=== PATIENT | female | born 1980 | race Caucasian/White ===

== ENCOUNTER 2017-10-15 22:47 | Emergency (ER) | payer MEDICARE, SELFPAY ==
[2017-10-15 22:48] VITALS: BP 208/132; PULSE 125; RESP 34; TEMP 36.9; O2SAT 97; BMI 34.1
[2017-10-15 23:51] LABS: Pregnancy, Serum, hCG Quali. NEGATIVE Negative (0-9 Nonpreg)
[2017-10-15 23:55] LABS: Absolute Lymphocyte Count 2.48 X10^3/ul (0.83-4.51); Absolute Neutrophil Count 5.4 X10^3/uL (2.0-7.7); Basophil# 0.08 X10^3/uL; Basophil% 0.9 % (0-1); Eosinophil# 0.29 X10^3/uL; Eosinophils% 3.3 % (0-5); Hematocrit 37.5 % (37-47); Hemoglobin 12.7 g/dl (12.0-15.0); Lymphocyte # 2.48 X10^3/ul (4.0); Lymphocyte % 27.8 % (19-41); Mean Corp Hgb Conc 33.9 g/gl (32-36); Mean Corpuscular Hgb 27.5 pg (27.0-32.0); Mean Corpuscular Volume 81.2 fL (81-99); Mean Platelet Vol. 11.1 fl (6.2-12.0); Monocyte# 0.57 X10^3/uL; Monocyte% 6.4 % (0-10); Neutrophil # 5.44 X10^3/uL (2.7-7.7); Platelet Count 476 K/mm3 (150-450); RBC Distribution Width CV 12.8 % (11.6-14.6); RBC Distribution Width SD 36.9 fl (35.1-43.9); Red Blood Count 4.62 M/mm3 (4.2-5.4); White Blood Count 8.9 K/mm3 (4.4-11.0)
[2017-10-16] VITALS (16 sets, daily range): BP systolic 143–199; BP diastolic 76–116; PULSE 75–100; RESP 14–20; O2SAT 93–99
[2017-10-16] LABS: POSITIVE COUNT NO; POSITIVE DIFFERENTIAL NO; POSITIVE MORPHOLOGY NO
[2017-10-16 00:01] LABS: Anion Gap 15 (5-15); BUN 8 mg/dL (7-18); BUN/Creat Ratio 10.2 RATIO (10-20); Calcium,Total 9.1 mg/dL (8.5-10.1); Chloride 111 mmol/L (98-107); Creatinine, Serum 0.79 mg/dL (0.55-1.02); EST Glomerular Filtration Rate 87 mL/min (>60); Est Glom Filt Rate - Afr Amer 105 mL/min (>60); Estimated Creatinine Clearance 86.03 ml/min; Glucose 113 mg/dL (74-106); Potassium 3.3 mmol/L (3.5-5.1); Sodium Level 143 mmol/L (136-145)
[2017-10-16 00:57] LABS: Amphetamine Urine VISTA NEGATIVE (<1000 ng/mL); Barbiturate Urine VISTA NEGATIVE (< 200 ng/mL); Benzodiazepine Urine VISTA NEGATIVE (< 200 ng/mL); Cocaine Urine VISTA NEGATIVE (< 300 ng/mL); Ecstacy Urine VISTA NEGATIVE (< 500 ng/mL); Methadone Urine VISTA NEGATIVE (< 300 ng/mL); PCP Urine VISTA NEGATIVE (< 25 ng/mL); THC Urine VISTA NEGATIVE (< 50 ng/mL); Vista UDS pH Range 6
--- NOTE | 2017-10-16 04:17 | ED.DCSUM_ITS ---
- ER Visit Summary Date of Service: 10/16/17 Chief Complaint: [] Comes in with suicidal ideation. Today she got an argument with her family. She had been drinking some alcohol. She also smokes marijuana per patient. As reported she had a knife. She was combative with the police department and had made suicidal threats and was pink slipped. Comes in for further evaluation. Has a history of bipolar schizophrenia and suicidal ideation. History of Present Illness: The patient is a 37 F [] see above Physical Examination: Vital signs reviewed General: Well-nourished well-developed Head: Normocephalic atraumatic Eyes: Pupils equal round and reactive to light extraocular movements intact ENT: TMs clear no hemotympanum no trauma Neck: Nontender full range of motion Cardiovascular: Regular rate rhythm no murmurs normal S1-S2 Respiratory: No distress clear to auscultation bilaterally chest nontender Abdomen: Soft nontender nondistended normal bowel sounds no masses Back: Nontender no CVA tenderness Extremities: Nontender active range of motion ?4 extremities no trauma Skin: Normal color no trauma Neuro alert oriented cranial nerves II through XII intact normal strength sensation reflexes are quite tearful Test Results: [] Emergency Department Course and Treatment: [] Patient calm down eventually in the department. CBC normal. Chemistries normal except potassium 3.3. negative. Tox normal. Alcohol showed a rate of 97. She will be evaluated by crisis. Treatment Plan: [] Disposition: [] Impression: [] Suicidal ideation Alcohol intoxication This note was generated with [employer] dictation software. It may contain incorrect words, spelling, and punctuation that were not noted in review of the chart prior to signing ED Disposition - Plan for ED Patient: Chief Complaint: Suicidal Referrals: Care Physician,No Primary [Primary Care Provider] -
[2017-10-16] MEDS: Acetaminophen 500 MG Tablet 1000 MG PO ×2 (04:52→12:27)
--- NOTE | 2017-10-16 07:26 | ED.RN ---
DR DENSON AWARE BP IS 184/105 AND HAS BEEN GOING UP AND DOWN.SPOKE TO PT AND SHE STATED SHE IS SUPPOSE YO BE ON LISONIPRIL.ORDER RECIEVED.
[2017-10-16] MEDS: Pantoprazole Sodium 20 MG Tablet PO (11:58)
[2017-10-16] MEDS: Lisinopril 20 MG Tablet PO (11:58)
[2017-10-16] MEDS: FLUoxetine 20 MG Capsule PO (11:59)
--- NOTE | 2017-10-16 12:59 | ED.RN ---
CALL BORIS MARCUS [phone] WHEN WE HAVE ANY UPDATES.
--- NOTE | 2017-10-16 16:43 | ED.DEP ---
ED Disposition - Plan for ED Patient: Disposition: Home or Assisted Living Chief Complaint: Suicidal Instructions: ED Alcohol Intoxication Referrals: Counseling,Center [GROUP OF PHYSICIANS] - (as directed)
[2017-10-16] MEDS: Ibuprofen 600 MG Tablet PO (16:52)
== END 2017-10-16 16:55 | disposition home or self-care (01) ==
PROVIDERS: Emergency Provider Emergency Medicine
DX: F43.0 Acute stress reaction (principal); R45.851 Suicidal ideations; F10.129 Alcohol abuse with intoxication, unspecified; F12.90 Cannabis use, unspecified, uncomplicated; Y90.4 Blood alcohol level of 80-99 mg/100 ml; F32.9 Major depressive disorder, single episode, unspecified; E66.9 Obesity, unspecified; Z79.899 Other long term (current) drug therapy; Z72.0 Tobacco use
CPT/HCPCS: 36415; 80048; 80307; 80320; 84703; 85025; 99283; G0480

== ENCOUNTER 2017-10-18 12:21 | Emergency (ER) | payer MEDICARE, SELFPAY ==
[2017-10-18 12:23] VITALS: BP 203/109; PULSE 98; RESP 16; TEMP 36.9; O2SAT 96; BMI 35.9
[2017-10-18 13:24] LABS: Anion Gap 7 (5-15); BUN 7 mg/dL (7-18); Calcium,Total 8.7 mg/dL (8.5-10.1); Chloride 106 mmol/L (98-107); Creatinine, Serum 0.78 mg/dL (0.55-1.02); EST Glomerular Filtration Rate 88 mL/min (>60); Est Glom Filt Rate - Afr Amer 107 mL/min (>60); Estimated Creatinine Clearance 87.13 ml/min; Glucose 132 mg/dL (74-106); Potassium 3.3 mmol/L (3.5-5.1); Sodium Level 140 mmol/L (136-145)
[2017-10-18 13:25] LABS: Absolute Lymphocyte Count 1.66 X10^3/ul (0.83-4.51); Absolute Neutrophil Count 9.3 X10^3/uL (2.0-7.7); Basophil# 0.07 X10^3/uL; Basophil% 0.6 % (0-1); Eosinophil# 0.37 X10^3/uL; Hematocrit 37.2 % (37-47); Hemoglobin 12.2 g/dl (12.0-15.0); Lymphocyte # 1.66 X10^3/ul (4.0); Lymphocyte % 13.6 % (19-41); Mean Corp Hgb Conc 32.8 g/gl (32-36); Mean Corpuscular Hgb 27.5 pg (27.0-32.0); Mean Corpuscular Volume 83.8 fL (81-99); Monocyte# 0.77 X10^3/uL; Monocyte% 6.3 % (0-10); Neutrophil # 9.27 X10^3/uL (2.7-7.7); Neutrophil % 76.2 % (47-70); Platelet Count 375 K/mm3 (150-450); RBC Distribution Width CV 12.8 % (11.6-14.6); RBC Distribution Width SD 38.6 fl (35.1-43.9); Red Blood Count 4.44 M/mm3 (4.2-5.4); White Blood Count 12.2 K/mm3 (4.4-11.0)
[2017-10-18 13:26] LABS: POSITIVE COUNT NO; POSITIVE DIFFERENTIAL NO; POSITIVE MORPHOLOGY NO
[2017-10-18 13:29] LABS: Pregnancy, Serum, hCG Quali. NEGATIVE Negative (0-9 Nonpreg)
[2017-10-18 13:34] LABS: Amphetamine Urine VISTA NEGATIVE (<1000 ng/mL); Barbiturate Urine VISTA NEGATIVE (< 200 ng/mL); Benzodiazepine Urine VISTA NEGATIVE (< 200 ng/mL); Cocaine Urine VISTA NEGATIVE (< 300 ng/mL); Ecstacy Urine VISTA NEGATIVE (< 500 ng/mL); Methadone Urine VISTA NEGATIVE (< 300 ng/mL); PCP Urine VISTA NEGATIVE (< 25 ng/mL); THC Urine VISTA NEGATIVE (< 50 ng/mL); Vista UDS pH Range 7
[2017-10-18 13:51] LABS: Alcohol, Blood (Medical)-Serum < 3.0 mg/dL
--- NOTE | 2017-10-18 16:07 | ED.DCSUM_ITS ---
- ER Visit Summary Date of Service: 10/18/17 Chief Complaint: Suicidal ideation History of Present Illness: The patient is a 37 F presenting with suicidal ideation. She states this started on Wednesday. She states she has been depressed and she is bipolar. She states she has been wanting to cut and hurt herself. States she tried to hang herself last night and was unsuccessful, she denies syncope. She does not currently have a primary care physician or psychiatrist. She states there have been no changes to her medications recently. No recent hospitalizations. She admits to occasional alcohol use, tobacco, occasional marijuana use. Physical Examination: Vitals are stable. BP 203/109. Patient is afebrile. Alert no acute distress. HEENT exam is unremarkable. No abrasions of neck. Pharynx is normal. No swelling. Uvula midline. No petechiae. Neck is supple. Lungs are clear and equal bilaterally. Heart is regular rate and rhythm. Abdomen is soft nontender nondistended. Extremities are unremarkable. Skin is warm and dry. No focal neurologic deficit. Remainder of exam is unremarkable. Emergency Department Course and Treatment: CBC shows white count 12.2. Chemistries unremarkable. HCG negative. Tox and alcohol are negative. Discussed with the counseling center for evaluation. Patient did not take her home BP meds and is unsure what she is on. She states her BP always runs high. She was given a dose of clonidine in the ED. She will be observed and BP will be rechecked by oncoming physician. Disposition: Per counseling center Impression: Suicidal ideation This note was generated with [employer] dictation software. It may contain incorrect words, spelling, and punctuation that were not noted in review of the chart prior to signing ED Disposition - Plan for ED Patient: Disposition: Psychiatric Hospital or Unit Chief Complaint: Suicidal Referrals: Care Physician,No Primary [Primary Care Provider] -
[2017-10-18 16:13] VITALS: BP 202/94; PULSE 98; RESP 16; O2SAT 100
--- NOTE | 2017-10-18 16:52 | ED.RN ---
THIS NURSE SPOKE WITH [facility]. WILL ACCEPT PT ONCE BP TREATED AND STABLE BP DOCUMENTED
[2017-10-18] MEDS: cloNIDine HCl 0.1 MG Tablet 0.2 MG PO (17:00)
[2017-10-18 18:30] VITALS: BP 156/78; PULSE 98; RESP 16; O2SAT 99
[2017-10-18 19:27] VITALS: BP 156/78; PULSE 98; RESP 17; O2SAT 99
[2017-10-18 19:29] VITALS: BP 156/78; PULSE 98; RESP 17; O2SAT 99
== END 2017-10-18 20:19 ==
PROVIDERS: Emergency Provider Emergency Medicine
DX: R45.851 Suicidal ideations (principal); F31.9 Bipolar disorder, unspecified; I10 Essential (primary) hypertension; F12.90 Cannabis use, unspecified, uncomplicated; Z72.89 Other problems related to lifestyle; Z72.0 Tobacco use
CPT/HCPCS: 36415; 80048; 80307; 80320; 84703; 85025; 99285; G0480

== ENCOUNTER 2017-11-10 13:18 | Emergency (ER) | payer MEDICARE, MEDICAID, SELFPAY ==
[2017-11-10 13:19] VITALS: BP 164/96; PULSE 90; RESP 14; TEMP 36.9; O2SAT 99; BMI 36.5
--- NOTE | 2017-11-10 13:31 | ED.VISSUMM ---
- ER Visit Summary Date of Service: 11/10/17 Chief Complaint: Suicidal ideation depressed History of Present Illness: The patient is a 37 F with a long-standing history of bipolar disorder and depression. Multiple prior suicide attempts including hanging, overdose is an laceration self-inflicted. She was admitted to [facility] facility 3 weeks ago. She states I am just tired of dealing with this. I am tired of putting my family through it. She did admit to superficial lacerations to her left and right wrist today. She denies any overdose attempt. Physical Examination: Appearing female. Vital signs stable afebrile. Pulse is 99% room air no signs of hypoxia. No smell of alcohol. No signs of a toxidrome. H EENT exam unremarkable. Neck nontender lungs clear to auscultation bilaterally. Heart regular rate and rhythm no murmur. Abdomen soft nontender. Extremities she moves all 4. Neurovascular intact. She is minor superficial lacerations to both wrists. They do not need to be repaired. They are not bleeding. There is no tendon or vascular injury. Both hands are neurovascularly intact. With normal range of motion. Back exam nontender. Neurologically she is awake and alert without any focal motor deficits. Test Results: Mental health labs. Show no acute abnormality. Normal CBC and BMP. Negative tox screen. Negative alcohol level. test negative. Emergency Department Course and Treatment: Patient is medically cleared and we are awaiting crisis evaluation for possible placement. Treatment Plan: Currently the patient had 1530 is resting comfortably. She is being interviewed by the crisis personnel at 1550. Disposition: Transfer to a psychiatric facility Impression: Acute on chronic depression Acute exacerbation of bipolar disorder Acute suicidal ideation with prior attempts. This note was generated with [employer] dictation software. It may contain incorrect words, spelling, and punctuation that were not noted in review of the chart prior to signing ED Disposition - Plan for ED Patient: Chief Complaint: Suicidal Referrals: Care Physician,No Primary [Family Provider] -
--- NOTE | 2017-11-10 13:33 | NURSING ---
CALLED CRISIS, TALKED TO KORY. SOMEONE WILL BE OUT SOON THEY HAVE TIME.
--- NOTE | 2017-11-10 13:34 | ED.DCSUM_ITS ---
- ER Visit Summary Date of Service: 11/10/17 Chief Complaint: Suicidal ideation depressed History of Present Illness: The patient is a 37 F with a long-standing history of bipolar disorder and depression. Multiple prior suicide attempts including hanging, overdose is an laceration self-inflicted. She was admitted to [facility] facility 3 weeks ago. She states I am just tired of dealing with this. I am tired of putting my family through it. She did admit to superficial lacerations to her left and right wrist today. She denies any overdose attempt. Physical Examination: Appearing female. Vital signs stable afebrile. Pulse is 99% room air no signs of hypoxia. No smell of alcohol. No signs of a toxidrome. H EENT exam unremarkable. Neck nontender lungs clear to auscultation bilaterally. Heart regular rate and rhythm no murmur. Abdomen soft nontender. Extremities she moves all 4. Neurovascular intact. She is minor superficial lacerations to both wrists. They do not need to be repaired. They are not bleeding. There is no tendon or vascular injury. Both hands are neurovascularly intact. With normal range of motion. Back exam nontender. Neurologically she is awake and alert without any focal motor deficits. Test Results: Mental health labs. Show no acute abnormality. Normal CBC and BMP. Negative tox screen. Negative alcohol level. test negative. Emergency Department Course and Treatment: Patient is medically cleared and we are awaiting crisis evaluation for possible placement. Treatment Plan: Currently the patient had 1530 is resting comfortably. She is being interviewed by the crisis personnel at 1550. Disposition: Transfer to a psychiatric facility Impression: Acute on chronic depression Acute exacerbation of bipolar disorder Acute suicidal ideation with prior attempts. This note was generated with [employer] dictation software. It may contain incorrect words, spelling, and punctuation that were not noted in review of the chart prior to signing ED Disposition - Plan for ED Patient: Chief Complaint: Suicidal Referrals: Care Physician,No Primary [Family Provider] -
[2017-11-10 14:30] LABS: Amphetamine Urine VISTA NEGATIVE (<1000 ng/mL); Barbiturate Urine VISTA NEGATIVE (< 200 ng/mL); Benzodiazepine Urine VISTA NEGATIVE (< 200 ng/mL); Cocaine Urine VISTA NEGATIVE (< 300 ng/mL); Ecstacy Urine VISTA NEGATIVE (< 500 ng/mL); Methadone Urine VISTA NEGATIVE (< 300 ng/mL); PCP Urine VISTA NEGATIVE (< 25 ng/mL); THC Urine VISTA NEGATIVE (< 50 ng/mL); Vista UDS pH Range 6
[2017-11-10 14:32] VITALS: PULSE 81; RESP 16
[2017-11-10 14:57] LABS: Absolute Lymphocyte Count 2.25 X10^3/ul (0.83-4.51); Absolute Neutrophil Count 4.3 X10^3/uL (2.0-7.7); Basophil# 0.08 X10^3/uL; Eosinophil# 0.54 X10^3/uL; Eosinophils% 6.8 % (0-5); Hematocrit 34.9 % (37-47); Hemoglobin 11.1 g/dl (12.0-15.0); Lymphocyte # 2.25 X10^3/ul (4.0); Lymphocyte % 28.4 % (19-41); Mean Corp Hgb Conc 31.8 g/gl (32-36); Mean Corpuscular Hgb 27.3 pg (27.0-32.0); Mean Corpuscular Volume 85.7 fL (81-99); Mean Platelet Vol. 10.5 fl (6.2-12.0); Monocyte# 0.67 X10^3/uL; Monocyte% 8.4 % (0-10); Neutrophil # 4.33 X10^3/uL (2.7-7.7); Neutrophil % 54.6 % (47-70); Platelet Count 439 K/mm3 (150-450); RBC Distribution Width CV 14.2 % (11.6-14.6); RBC Distribution Width SD 43.3 fl (35.1-43.9); Red Blood Count 4.07 M/mm3 (4.2-5.4); White Blood Count 7.9 K/mm3 (4.4-11.0)
[2017-11-10 14:58] LABS: POSITIVE COUNT NO; POSITIVE DIFFERENTIAL NO; POSITIVE MORPHOLOGY NO
[2017-11-10 15:12] LABS: Alcohol, Blood (Medical)-Serum < 3.0 mg/dL; Anion Gap 8 (5-15); BUN 15 mg/dL (7-18); BUN/Creat Ratio 21.9 RATIO (10-20); Calcium,Total 8.7 mg/dL (8.5-10.1); Chloride 106 mmol/L (98-107); Creatinine, Serum 0.68 mg/dL (0.55-1.02); EST Glomerular Filtration Rate 102 mL/min (>60); Est Glom Filt Rate - Afr Amer 123 mL/min (>60); Estimated Creatinine Clearance 99.95 ml/min; Glucose 126 mg/dL (74-106); Potassium 3.8 mmol/L (3.5-5.1); Sodium Level 141 mmol/L (136-145)
[2017-11-10 15:21] LABS: Pregnancy, Serum, hCG Quali. NEGATIVE Negative (0-9 Nonpreg)
--- NOTE | 2017-11-10 15:45 | NURSING ---
KORY, CRISIS, HERE
[2017-11-10 16:08] VITALS: BP 141/79; PULSE 84; RESP 16; O2SAT 98
--- NOTE | 2017-11-10 16:40 | BH.NOTE ---
BH: Inpatient Note - Notes Behavioral Health Inpatient Note: 11/10/17 7304 Crisis called behavioral health asking for behavioral health therapist to speak with pt about program as an option for aftercare once pt is discharged from inpatient. This therapist went into pt's room and introduced self to pt. Pt and pt's family were present at the time, pt recognized this therapist because pt has previously been a pt in the IOP program. Pt's family left hospital room except for pt's mother. Pt reported she has been struggling for some time now with multiple suicide attempts and hospitalizations recently. Pt's mother reported pt hasn't been doing very good with taking her medications on a consistent basis and will often lie about whether she has taken her medications or not. Pt admitted she sometimes is dishonest about her symptoms and if she has taken her medications or not. Pt able to recognize when she doesn't take her medications her mental health symptoms worsen which tends to lead to increased SI and hospitalization. Pt reported she hasn't been following through with individual counseling or case management at the counseling center. Pt recognized she needs to have follow up care or she will keep going back to the hospital. Pt verbalized I can't keep doing this to my family and kids in regards to being hospitalized. Identified not being able to see her kids several weeks ago to be a trigger to negative coping and not caring. This therapist reviewed the IOP program with pt reminding pt of the importance of having follow up care after discharge from inpatient hospitalization. Pt agreeable to contact this therapist once discharged from inpatient hospitalization to discuss starting IOP. This therapist provided pt with IOP brochure as well as this therapists business card. 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
[2017-11-10 19:59] VITALS: BP 149/84; PULSE 92; RESP 17; O2SAT 98
--- NOTE | 2017-11-10 20:04 | ED.RN ---
pt reports not wanting to take her medications with her to [facility]. called security and left the pills with them for her mother ragini michelle to pickler helper tomorrow
[2017-11-10 20:14] VITALS: BP 152/84; PULSE 90; RESP 16; RESP 17; O2SAT 98
== END 2017-11-10 20:20 | disposition home or self-care (01) ==
PROVIDERS: Emergency Provider Emergency Medicine; PCP Nurse Practitioner Family
DX: F31.9 Bipolar disorder, unspecified (principal); R45.851 Suicidal ideations; S61.512A Laceration without foreign body of left wrist, initial encounter; S61.511A Laceration without foreign body of right wrist, initial encounter; X78.9XXA Intentional self-harm by unspecified sharp object, initial encounter; Y93.89 Activity, other specified; Y92.9 Unspecified place or not applicable; Z91.5 Personal history of self-harm; Z72.0 Tobacco use; I10 Essential (primary) hypertension; E78.00 Pure hypercholesterolemia, unspecified; F60.9 Personality disorder, unspecified; F19.94 Other psychoactive substance use, unspecified with psychoactive substance-induced mood disorder; F10.94 Alcohol use, unspecified with alcohol-induced mood disorder; Y90.0 Blood alcohol level of less than 20 mg/100 ml
CPT/HCPCS: 36415; 80048; 80307; 80320; 84703; 85025; 99284; G0480

== ENCOUNTER 2017-12-03 17:52 | Emergency (ER) | payer MEDICARE, SELFPAY ==
[2017-12-03 17:53] VITALS: BP 141/88; PULSE 81; RESP 18; TEMP 36.5; O2SAT 97; BMI 39.8
--- NOTE | 2017-12-03 18:14 | RAD_ITS ---
STUDY: X-RAY CHEST REASON FOR EXAM: Female, 37 years old. Left abdominal pain TECHNIQUE: Single frontal view COMPARISON: August 25, 2016 FINDINGS: The lungs are clear and expanded. There is no demonstrated pleural abnormality. Normal size heart. Normal mediastinum and betito. Normal visualized pulmonary arteries. Normal visualized aortic arch and descending thoracic aorta. Normal visualized thoracic spine. Normal visualized ribs, clavicles, and shoulders. There is no demonstrated abnormality of the visualized soft tissue structures of the upper abdomen. RAD/Chest 1 View (Portable) IMPRESSION: Normal x-ray examination of the chest. Electronically Signed: Quinten Fajardo DO at 19:41 EDT Tel [phone], Service support ,
--- NOTE | 2017-12-03 18:14 | EKG12_ITS ---
Test Reason : CP Blood Pressure : / mmHG Vent. Rate : 080 BPM Atrial Rate : 080 BPM P-R Int : 168 ms QRS Dur : 112 ms QT Int : 416 ms P-R-T Axes : 006 001 015 degrees QTc Int : 479 ms Normal sinus rhythm Normal ECG Confirmed by FACUNDO LONGO, ODILON ([id number]), book or script editor JANE MONTALVO ([id number]) on 12/07/2017 8:32:18 AM Referred By: JOHN Confirmed By:ODILON LOREDO MD
--- NOTE | 2017-12-03 18:18 | ED.VISSUMM ---
- ER Visit Summary Date of Service: 12/03/17 Chief Complaint: Abdominal pain and chest pain History of Present Illness: The patient is a 37 F who reports pain in the lateral portion of her left upper quadrant today. She developed chest heaviness that she describes as an elephant sitting on her chest while sitting at rest approximately 15 minutes before calling EMS. Patient states that she felt like her heart was racing. Per EMS notes no tachycardic rhythms were noted. Patient denies nausea or vomiting. She has been belching more than normal today has an acid sensation in the back of her throat. Physical Examination: Vital signs are unremarkable. Patient sitting upright in bed no acute distress. She is alert and conversant. Head neck examination is unremarkable. Heart is regular rate and rhythm. Lung sounds are clear. Abdomen is soft with minimal tenderness in the lateral left upper quadrant left lobe lower ribs. There is no crepitus. She has no guarding or rebound. She has active bowel sounds. Lower extremity examination reveals no significant calf tenderness or edema. Test Results: EKG is sinus 80 with no sign of acute ischemia. Portable chest x-ray is unremarkable. CBC was normal white count with hemoglobin 11.3. Chemistry studies are significant for glucose of 181, otherwise normal. Troponin is less than 0.02. test is negative. Emergency Department Course and Treatment: Patient was given a GI cocktail. On repeat evaluation her chest discomfort is completely resolved. She still has mild pain in the left lateral upper quadrant. It does seem to be worse with movement or palpation. Patient believes she may have pulled a muscle. At this time patient be discharged home with family. Treatment Plan: [] Disposition: Discharge Impression: 1. Atypical chest pain, resolved 2. Abdominal pain This note was generated with [employer] dictation software. It may contain incorrect words, spelling, and punctuation that were not noted in review of the chart prior to signing ED Disposition - Plan for ED Patient: Chief Complaint: Abd Pain Referrals: Lorelei Stratton NP-C [Primary Care Provider] -
[2017-12-03 18:24] LABS: Absolute Lymphocyte Count 2.99 X10^3/ul (0.83-4.51); Absolute Neutrophil Count 5.6 X10^3/uL (2.0-7.7); Basophil# 0.04 X10^3/uL; Basophil% 0.4 % (0-1); Eosinophil# 0.54 X10^3/uL; Eosinophils% 5.4 % (0-5); Hematocrit 34.8 % (37-47); Hemoglobin 11.3 g/dl (12.0-15.0); Lymphocyte # 2.99 X10^3/ul (4.0); Lymphocyte % 29.6 % (19-41); Mean Corp Hgb Conc 32.5 g/gl (32-36); Mean Corpuscular Hgb 26.7 pg (27.0-32.0); Mean Corpuscular Volume 82.1 fL (81-99); Mean Platelet Vol. 10.1 fl (6.2-12.0); Monocyte% 7.9 % (0-10); Neutrophil # 5.55 X10^3/uL (2.7-7.7); Platelet Count 345 K/mm3 (150-450); RBC Distribution Width CV 13.8 % (11.6-14.6); RBC Distribution Width SD 41.7 fl (35.1-43.9); Red Blood Count 4.24 M/mm3 (4.2-5.4); White Blood Count 10.1 K/mm3 (4.4-11.0)
[2017-12-03] MEDS: 0.9% Normal Saline 1,000 ML 150 ML IV (18:26)
[2017-12-03 18:42] LABS: POSITIVE COUNT NO; POSITIVE DIFFERENTIAL NO; POSITIVE MORPHOLOGY NO
[2017-12-03 19:41] LABS: Anion Gap 10 (5-15); BUN 18 mg/dL (7-18); BUN/Creat Ratio 21.8 RATIO (10-20); Calcium,Total 8.7 mg/dL (8.5-10.1); Chloride 104 mmol/L (98-107); Creatinine, Serum 0.83 mg/dL (0.55-1.02); EST Glomerular Filtration Rate 82 mL/min (>60); Est Glom Filt Rate - Afr Amer 99 mL/min (>60); Estimated Creatinine Clearance 81.89 ml/min; Glucose 181 mg/dL (74-106); Potassium 3.5 mmol/L (3.5-5.1); Sodium Level 139 mmol/L (136-145)
[2017-12-03 19:46] LABS: Pregnancy, Serum, hCG Quali. NEGATIVE Negative (0-9 Nonpreg)
--- NOTE | 2017-12-03 20:29 | ED.DEP ---
ED Disposition - Plan for ED Patient: Disposition: Home or Assisted Living Chief Complaint: Abd Pain Instructions: ED Chest Pain Atypical Unkn Cause Referrals: Lorelei Stratton NP-C [Primary Care Provider] - 1 Week
[2017-12-03 20:39] VITALS: BP 154/90; PULSE 74; RESP 16; O2SAT 97; O2SAT 98
== END 2017-12-03 20:40 | disposition home or self-care (01) ==
PROVIDERS: Emergency Provider Emergency Medicine; Family Provider Nurse Practitioner Family; PCP Nurse Practitioner Family
DX: R10.12 Left upper quadrant pain (principal); R07.89 Other chest pain; E66.9 Obesity, unspecified; Z68.39 Body mass index [BMI] 39.0-39.9, adult; I10 Essential (primary) hypertension; E78.00 Pure hypercholesterolemia, unspecified; K21.9 Gastro-esophageal reflux disease without esophagitis; Z72.0 Tobacco use; F31.9 Bipolar disorder, unspecified; F12.90 Cannabis use, unspecified, uncomplicated; Z79.899 Other long term (current) drug therapy
CPT/HCPCS: 71045; 80048; 84484; 84703; 85025; 93005; 96360; 96361; 99285; J7030; A4216

== ENCOUNTER 2017-12-15 17:59 | Emergency (ER) | payer MEDICARE, SELFPAY ==
[2017-12-15 18:01] VITALS: BP 174/92; PULSE 78; RESP 16; TEMP 37.1; O2SAT 99; BMI 39.6
--- NOTE | 2017-12-15 18:30 | RAD_ITS ---
STUDY: X-RAY - LEFT FOOT CLINICAL: Female, 37 years old. Pain TECHNIQUE: 3 view(s) of the foot. COMPARISON: None. FINDINGS: There is no evidence of fracture or dislocation. There is a plantar calcaneal spur noted. There are no significant degenerative changes. There are no radiodense foreign bodies. RAD/Foot min 3 Views IMPRESSION: No fracture or dislocation. Plantar calcaneal spur. Electronically Signed: Alin Gamble, at 19:27 EDT Tel , Service support ,
[2017-12-15] MEDS: Naproxen 500 MG Tablet PO (18:40)
--- NOTE | 2017-12-15 18:58 | ED.VISSUMM ---
- ER Visit Summary Date of Service: 12/15/17 Chief Complaint: Left foot pain History of Present Illness: The patient is a 37 F presents to the emergency department pain in her left foot. Patient denies any injury. States over the past 2 days, she has had worsening pain in the foot especially when she bears weight. She denies any trauma. She denies any new shoes. She cannot recall anything that makes it better or worse. She does feel like it could be worse in the morning especially when she steps down. She has not taken anything for the pain. Physical Examination: Exam is relatively unremarkable. Pulses are normal the lower extremity. There is no pain in the calf. Cap refill 2 seconds. There is pain to palpation over the heel. The skin is intact. Test Results: [] Emergency Department Course and Treatment: Plain films were obtained of the foot. There is no evidence of acute fracture. Lateral films do show evidence of a large heel spur. The patient will be started on anti-inflammatories. She was counseled on using heel cups. She will be given follow-up with podiatry. She is discharged home. Treatment Plan: [] Disposition: Discharge Impression:. Heel spur left foot This note was generated with [employer] dictation software. It may contain incorrect words, spelling, and punctuation that were not noted in review of the chart prior to signing ED Disposition - Plan for ED Patient: Chief Complaint: Lower Extremity Injury Instructions: ED Heel Spur Prescriptions: Naproxen [Naprosyn] 500 mg PO BID PRN #20 tab Referrals: Dre Robertson DPM [STAFF PHYSICIAN] -
== END 2017-12-15 19:12 | disposition home or self-care (01) ==
LOC: ED 18:43
PROVIDERS: Emergency Provider Emergency Medicine; Family Provider Nurse Practitioner Family; PCP Nurse Practitioner Family
DX: M77.32 Calcaneal spur, left foot (principal); I10 Essential (primary) hypertension; E78.00 Pure hypercholesterolemia, unspecified; K21.9 Gastro-esophageal reflux disease without esophagitis; Z79.899 Other long term (current) drug therapy
CPT/HCPCS: 73630; 99283

== ENCOUNTER 2018-01-13 15:33 | Emergency (ER) | payer MEDICARE, SELFPAY ==
[2018-01-13 15:34] VITALS: BP 151/89; PULSE 87; RESP 16; TEMP 36.7; O2SAT 97; BMI 38.7
--- NOTE | 2018-01-13 15:45 | ED.VISSUMM ---
- ER Visit Summary Date of Service: 01/13/18 Chief Complaint: [] Self-inflicted superficial left wrist lacerations today History of Present Illness: The patient is a 37 F [] anxiety and depression and prior suicide attempts reports she suffered increasing stress related to the fact that she from her children she developed increasing stress and she began self inflicting superficial lacerations spoke with her counts was instructed to come to the hospital Physical Examination: [] Resting comfortably in the bed no distress no psychomotor agitation or delirium or hallucinations mother in the room with her vital signs within normal range she is awake and alert head neck chest unremarkable abdomen soft nontender she has very superficial left wrist and forearm lacerations volar surface, hand functions fully intact thumb function fully intact no motor or sensory abnormalities these do not really break the skin Test Results: [] Emergency Department Course and Treatment: exam is normal her tetanus status is unclear if she requires tetanus updated we will give her Ativan as she feels anxious to obtain a mental health screening examinations screening labs and asked mental health services for further management Treatment Plan: [] Disposition: [] Pending mental health evaluation Impression: [] Superficial left wrist forearm lacerations, anxiety depression history of suicidal ideation This note was generated with [employer] dictation software. It may contain incorrect words, spelling, and punctuation that were not noted in review of the chart prior to signing ED Disposition - Plan for ED Patient: Chief Complaint: Suicidal Referrals: Lorelei Stratton, CATRACHITO-C [Primary Care Provider] -
[2018-01-13 16:08] LABS: Absolute Lymphocyte Count 2.57 X10^3/ul (0.83-4.51); Absolute Neutrophil Count 6.1 X10^3/uL (2.0-7.7); Basophil# 0.07 X10^3/uL; Basophil% 0.7 % (0-1); Eosinophil# 0.43 X10^3/uL; Eosinophils% 4.2 % (0-5); Hematocrit 38.2 % (37-47); Hemoglobin 13.1 g/dl (12.0-15.0); Lymphocyte # 2.57 X10^3/ul (4.0); Lymphocyte % 25.2 % (19-41); Mean Corp Hgb Conc 34.3 g/gl (32-36); Mean Corpuscular Hgb 28.9 pg (27.0-32.0); Mean Corpuscular Volume 84.3 fL (81-99); Mean Platelet Vol. 10.7 fl (6.2-12.0); Monocyte# 0.89 X10^3/uL; Monocyte% 8.7 % (0-10); Neutrophil # 6.12 X10^3/uL (2.7-7.7); Platelet Count 309 K/mm3 (150-450); RBC Distribution Width CV 14.5 % (11.6-14.6); Red Blood Count 4.53 M/mm3 (4.2-5.4); White Blood Count 10.2 K/mm3 (4.4-11.0)
[2018-01-13 16:09] LABS: POSITIVE COUNT NO; POSITIVE DIFFERENTIAL NO; POSITIVE MORPHOLOGY NO
[2018-01-13] MEDS: LORazepam 1 MG Tablet PO (16:10)
[2018-01-13] MEDS: Diphth,Pertuss(Acell),Tet Vac 0.5 ML Vial IM (16:11)
[2018-01-13 16:32] LABS: Anion Gap 10 (5-15); BUN 15 mg/dL (7-18); BUN/Creat Ratio 12.8 RATIO (10-20); Chloride 105 mmol/L (98-107); Creatinine, Serum 1.17 mg/dL (0.55-1.02); EST Glomerular Filtration Rate 55 mL/min (>60); Est Glom Filt Rate - Afr Amer 66 mL/min (>60); Estimated Creatinine Clearance 60.43 ml/min; Glucose 109 mg/dL (74-106); Potassium 3.8 mmol/L (3.5-5.1); Sodium Level 139 mmol/L (136-145)
[2018-01-13 16:36] LABS: Pregnancy, Serum, hCG Quali. NEGATIVE Negative (0-9 Nonpreg)
[2018-01-13 18:53] LABS: Bacteria 0 SEEN /hpf (None Seen); Mucous, Urine 0 SEEN /hpf (<or=2+); Red Blood Cells-Urine 0 SEEN /hpf (0-5); White Blood Cells 0 SEEN /hpf (0-5)
[2018-01-13 19:25] VITALS: BP 143/76; PULSE 89; RESP 18; O2SAT 95
[2018-01-13 19:27] LABS: Color, Urine Yellow (Yellow); Glucose, Dipstick Normal (Normal); Ketone-Dipstick Negative (Negative); Leukocyte Esterase-Dipstick Negative /ul (Negative); Nitrite-Dipstick Negative (Negative); Occult Blood-Urine Negative /ul (Negative); Protein-Dipstick Negative (Negative); Urine Bilirubin Dipstick Negative (Negative); Urine Clarity Sl. Cloudy (Clear); Urine Urobilinogen 1 mg/dl (Normal); Urine pH 6.5 (5.0 - 8.0)
[2018-01-13 19:57] LABS: Amphetamine Urine VISTA NEGATIVE (<1000 ng/mL); Barbiturate Urine VISTA NEGATIVE (< 200 ng/mL); Benzodiazepine Urine VISTA NEGATIVE (< 200 ng/mL); Cocaine Urine VISTA NEGATIVE (< 300 ng/mL); Ecstacy Urine VISTA NEGATIVE (< 500 ng/mL); Methadone Urine VISTA NEGATIVE (< 300 ng/mL); PCP Urine VISTA NEGATIVE (< 25 ng/mL); THC Urine VISTA NEGATIVE (< 50 ng/mL); Vista UDS pH Range 6
[2018-01-13 20:16] LABS: Squamous Epithelial Cells - UA 0-5 SEEN /hpf (5-10)
[2018-01-13 21:00] VITALS: BP 137/89; PULSE 78; RESP 18; O2SAT 96
--- NOTE | 2018-01-13 21:54 | NURSING ---
CRISIS CALLED TO SEE PT. KORY CALLED BACK AND NOTIFIED OF PT NEEDING TO BE SEEN. KORY STATED SHE WAS AT [facility] CURRENTLY AND WILL BE HERE WHEN SHE IS DONE THERE.
[2018-01-13 23:14] VITALS: RESP 18
[2018-01-14] VITALS (9 sets, daily range): BP systolic 151–189; BP diastolic 87–98; PULSE 79–95; RESP 14–18; O2SAT 95–99
--- NOTE | 2018-01-14 02:20 | NURSING ---
talked with crisis and the pt will be admitted to a psych facility
[2018-01-14] MEDS: Triamterene 37.5MG/Hctz 25MG Capsule 1 CAP PO (06:43)
[2018-01-14] MEDS: FLUoxetine 20 MG Capsule 40 MG PO (06:43)
[2018-01-14] MEDS: Metoprolol Tartrate 25 MG Tablet PO (06:43)
[2018-01-14] MEDS: Ferrous Sulfate 325 MG Tablet PO (06:43)
[2018-01-14] MEDS: Lisinopril 20 MG Tablet PO (06:44)
--- NOTE | 2018-01-14 08:31 | ED.RN ---
ems in ed for pt.
== END 2018-01-14 08:37 | disposition home or self-care (01) ==
PROVIDERS: Emergency Provider Emergency Medicine; Family Provider Nurse Practitioner Family; PCP Nurse Practitioner Family
DX: S61.512A Laceration without foreign body of left wrist, initial encounter (principal); S51.812A Laceration without foreign body of left forearm, initial encounter; X78.9XXA Intentional self-harm by unspecified sharp object, initial encounter; Y93.89 Activity, other specified; Y92.9 Unspecified place or not applicable; F32.9 Major depressive disorder, single episode, unspecified; F41.9 Anxiety disorder, unspecified; Z79.899 Other long term (current) drug therapy
CPT/HCPCS: 80048; 80307; 80320; 81001; 84703; 85025; 90715; 99284; G0480

== ENCOUNTER 2018-02-11 09:00 | Outpatient (RCR) | payer MEDICARE, SELFPAY ==
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
--- NOTE | 2018-02-11 10:52 | BH.SGPN ---
Service Group Progress Note - Session Psychotherapy Session #1 Date Open:: 02/11/18 - 6 group members Time Started:: 09:05 Time Stopped:: 10:00 Targeted Problem #:: 1 Type of Group:: Process Goal of Group:: The goal of today's group was to check-in with client's mood, stressors, and positives and introduce topic for the day. Client Response/Progress/Benefit:: Client responded well to session, receptive to support from peers. Client reports feeling tired and stated there's a lot going on. Client shared she has been living with her mother and father, which has increased anxiety and frustration as client reports her mother is crazy. Client reported she is hoping to learn how to manage her emotions and deal with her mother while in IOP. Client reported a history of self-harm and suicide attempts, but shared she has not self-harmed this week which demonstrates progress. Client stated she has been using bible CDs and thinking of her children to combat suicidal thoughts and urges to self-harm. Client appeared to benefit from receiving supportive statements from peers and reflecting on positives. Limited progress, client's first day in IOP. To continue IOP to prevent decompensation. Eye Contact:: Good Motor Activity:: Appropriate Appearance:: Casual Speech:: Appropriate Mood:: Anxious Affect:: Flat Thoughts:: Linear, Logical, No evidence of hallucinations/delusions noted Staff Interventions:: Therapist used open-ended questions to elicit information about client's current stressors and mood state. Therapist was supportive by using active listening and providing feedback.
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
--- NOTE | 2018-02-11 13:55 | BH.DR.ITP ---
Initial Treatment Plan - Patient Information Visit Information: ADMISSION DATE: EXPECTED LOS: 4-6 weeks Diagnoses:: Schizoaffective disorder bipolar type F 25.0 - Problems/Symptoms Problem #1:: Mood instability Symptom:: Depression, anhedonia, irritability, decreased energy, difficulty concentrating, biologic disruption of sleep Problem #2:: Anxiety Symptom:: Rumination, panic Problem #3:: Psychosis Symptom:: Auditory hallucinations
--- NOTE | 2018-02-11 15:14 | BH.SGPN ---
Service Group Progress Note - Session Psychotherapy Session #3 Date Open:: 02/11/18 Time Started:: 11:12 Time Stopped:: 12:03 Targeted Problem #:: 1 Type of Group:: Functional Skills Development - 6 participants. Goal of Group:: The goal of group was to increase understanding of the different types of social support. Another goal was to identify one type of support the clients desire from their support system and brainstorm ways to best communicate these needs as well establish one small step towards achieving that support. Client Response/Progress/Benefit:: Client responded well to session and was actively engaged throughout. She worked with fellow participants on further processing ways in which the communication that took place during this group activity relates to how one communicates with supports. Client inquired to do if supports are unhelpful or do not seem to care or understand. She responded well to supportive feedback and suggestions added by the group. Client benefited from discussion reviewing various types of support her different support people may provide, as well as steps and strategies she can take in order to ask for that support. client indicated feeling she needs additional spiritual support and believes that this will help improve mental health symptoms as it will give her additional outlets for processing her emotions. Client displayed progress in her ability to identify small steps she may take in order to work towards improving the support. Client identified that going to taoist more frequently as one step she plans to take in the next week. Eye Contact:: Good Motor Activity:: Appropriate Appearance:: Casual Speech:: Appropriate Mood:: Anxious, Dysthymic Affect:: Congruent Thoughts:: Linear, Logical, No evidence of hallucinations/delusions noted Staff Interventions:: Therapist facilitated group discussion on the different types of social support and importance of each type of support. A social support worksheet, was utilized to give clients direction in identifying which type of support they desired, how it will help, and identifying the first small step towards the desired support. Therapist provided homework for each group member to try and accomplish the one small step each group member identified on the worksheet.
--- NOTE | 2018-02-14 15:26 | BH.SGPN_ITS ---
Service Group Progress Note - Session Psychotherapy Session #3 Date Open:: 02/11/18 Time Started:: 11:12 Time Stopped:: 12:03 Targeted Problem #:: 1 Type of Group:: Functional Skills Development - 6 participants. Goal of Group:: The goal of group was to increase understanding of the different types of social support. Another goal was to identify one type of support the client?s desire from their support system and brainstorm ways to best communicate these needs as well establish one small step towards achieving that support. Client Response/Progress/Benefit:: Client responded well to session and was actively engaged throughout. She worked with fellow participants on further processing ways in which the communication that took place during this group activity relates to how one communicates with supports. Client inquired to do if supports are unhelpful or do not seem to care or understand. She responded well to supportive feedback and suggestions added by the group. Client benefited from discussion reviewing various types of support her different support people may provide, as well as steps and strategies she can take in order to ask for that support. client indicated feeling she needs additional spiritual support and believes that this will help improve mental health symptoms as it will give her additional outlets for processing her emotions. Client displayed progress in her ability to identify small steps she may take in order to work towards improving the support. Client identified that going to mandaeism more frequently as one step she plans to take in the next week. Eye Contact:: Good Motor Activity:: Appropriate Appearance:: Casual Speech:: Appropriate Mood:: Anxious, Dysthymic Affect:: Congruent Thoughts:: Linear, Logical, No evidence of hallucinations/delusions noted Staff Interventions:: Therapist facilitated group discussion on the different types of social support and importance of each type of support. A social support worksheet, was utilized to give clients direction in identifying which type of support they desired, how it will help, and identifying the first small step towards the desired support. Therapist provided homework for each group member to try and accomplish the one small step each group member identified on the worksheet.
--- NOTE | 2018-02-16 14:54 | BH.SGPN_ITS ---
Service Group Progress Note - Session Psychotherapy Session #2 Date Open:: 02/16/18 - 8 group members Time Started:: 10:18 Time Stopped:: 11:15 Targeted Problem #:: 1 Type of Group:: Illness Management Goal of Group:: To increase understanding of what conflict is and increase awareness of how group members manage conflict. Client Response/Progress/Benefit:: Client responded well to session, active in discussion. Client appeared to connect with the quote, sharing ?conflict happens all the time.? Client shared conflict comes from differences or disagreements. Client reported she often has conflict with her mother. Client reported one can have ?mental conflict? as well from negative thinking or self- doubt. Client shared emotions, body language, and negative thoughts can impact her ability to manage conflict. Client identified using the accommodating conflict resolution type most often as cares more about pleasing other than her needs. Client shared she is not currently happy with how she manages conflict because client does share her ideas or get her needs met. Client reported belief it would be beneficial for her to be aggressive when dealing with internal conflict, so only she gets hurt. However, after processing with group, client realized it would be helpful for client?s mental health if client self- blamed or hurt herself when dealing with internal conflict. Client appeared to benefit from gaining awareness of how she manages conflict and how it impacts mental health. Progress noted as client denies self-harm, but continues to have mistaken beliefs and can improve emotional regulation. Eye Contact:: Good Motor Activity:: Appropriate Appearance:: Casual Speech:: Appropriate Mood:: Anxious, Irritable Affect:: Constricted Thoughts:: Linear, Logical, No evidence of hallucinations/delusions noted Staff Interventions:: Therapist facilitated discussion about conflict and conflict resolution. Therapist led group in an activity in which group members had to identify their initial response to conflict and how their response changes based on different situations. Therapist assisted clients with connecting the impact current conflict style has on their mental health. Psychotherapy Session #3 Date Open:: 02/16/18 - 6 group members Time Started:: 11:25 Time Stopped:: 12:15 Targeted Problem #:: 1 Type of Group:: Functional Skills Development Goal of Group:: To identify what contributes positively and negatively to conflict and appropriate ways to manage conflict with others. Client Response/Progress/Benefit:: Client responded well to session, participating in activity. Client appeared to be accommodating at times during the activity, but when encouraged by therapist to self-advocate, client used a more cooperative approach. Client shared communication, listening to others, and managing emotions helped the group in the activity. Client stated assumptions, body language, and anger can negatively impact conflict resolution. Client helped the group identify strategies to improve conflict resolution such as taking deep breathing, managing stress, and not holding in emotions. Client became tearful when group discussed how they want to improve current conflict resolution style. Client appeared to benefit from practicing the cooperative conflict resolution style and identifying ways to improve conflict resolution. Client to continue IOP to prevent decompensation and maintain reduction of self-harming behaviors. Eye Contact:: Good Motor Activity:: Appropriate Appearance:: Casual Speech:: Appropriate Mood:: Anxious, Dysthymic Affect:: Congruent - full affect during the activity, but then became tearful during discussion Thoughts:: Linear, Logical, No evidence of hallucinations/delusions noted Staff Interventions:: Therapist facilitated group activity in which group members were provided with materials and had to eliminate certain items with consensus from group. Therapist processed activity, helping clients connect throughout activity strategies each person used to manage conflict. Therapist led discussion about what contributes to conflict in a positive or negative manner. Therapist facilitated discussion about conflict resolution strategies and provided group member with a handout about effective ways to manage conflict.
--- NOTE | 2018-02-16 15:38 | BH.SGPN ---
Service Group Progress Note - Session Psychotherapy Session #1 Date Open:: 02/16/18 Time Started:: 09:05 Time Stopped:: 10:11 Targeted Problem #:: 1 Type of Group:: Process - 8 Participants. Goal of Group:: The goal of today's group was to check-in with clients and review homework from previous group session. Client Response/Progress/Benefit:: Receptive to session and was willing to discuss it having to cancel appointments for group and outpatient therapy on the previous date as she got into it with her mother and was therefore allowed to use the family car. Client shared ongoing frustrations with her mother's mental health and mood swings. Shared often feeling as though she does not know whether her mom will be positive or negative mood which impacts their relationship. 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 Benefited from discussing areas inside her control and what is out of her control. She did well to identify small steps she can take today to reduce stress and strategies for communicating her needs with her mother. Identified prior and her Bible as means for decreasing stress and indicated that potentially talking to her mother commonly could be official. Client displaying progress in her ability to identify skills she can use in order to manage symptoms of stress and anxiety. Recommended continued IOP in order to prevent decompensation and further promote healthy coping skill building and implementation. Eye Contact:: Fair Motor Activity:: Appropriate Appearance:: Casual Speech:: Appropriate Mood:: Anxious, Irritable, Depressed Affect:: Congruent Thoughts:: Linear, Logical, No evidence of hallucinations/delusions noted Staff Interventions:: Therapist facilitated the group session by asking open ended questions that encouraged group members to discuss their weekend and current mood state. Assisted group members in the review of their homework from previous group session.
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
--- NOTE | 2018-02-17 12:56 | BH.MDN_ITS ---
Multi-Disciplinary Note - Note 45-min Individual Time Started:: 08:30 Date: 02/17/18 Purpose of session/treatment goals addressed:: Purpose of session was to assess current symptoms and stressors. Other topics included: identifying treatment plan goals, gathering additional background information, and setting small goal for weekend. Eye Contact:: Fair Motor Activity:: Appropriate Appearance:: Disheveled Speech:: Appropriate Mood:: Anxious Affect:: Constricted Thoughts:: Linear, Logical, No evidence of hallucinations/delusions noted Staff Interventions:: Therapist utilized open ended questions to elicit client' s current symptoms and stressors. Therapist processed positives and negatives over past week, assisting client with identfiying replacement healthy skills. Therapist collaborated with client to identify treatment goals while in IOP. Provided support by using active listening and validating emotions. Client Response:: Client reported she is feeling much better compared to yesterday. Client reported the past two days were rough because her mom was in one of her bitchy moods. Client stated she believes her mom has undiagnosed bipolar disorder and refuses help. Client reported when her mom gets in one of those moods it leads to a lot of arguing between client and client's mother. Client shared her mother was saying very negative things to client and claiming client doesn't nothing around the house. client reported when her mom acts like this client will either isolate into her room or having yelling matches back and forth. Client shared today things are better because client told her mother she would put forth more effort to help around the house and her mom said I love you, too back to client which isn't something that occurs often. With coaching client able to connect her mom's moods have a lot of influcence on how client feels. Client reported she has a desire to learn strategies to help her manage her own emotions when client's mother starts to verbally attack client. Client recognizes yelling back at her mom isn't going to help the situation. Client identified treatment goals would be to decrease depressive symptoms, improve ability to manage emotions in the moment, and utilize her coping strategies on a more consistent basis. Risks/Concerns:: Client has history of multiple suicide attempts and 20+ psychiatric hospitalizations. Client currently denies suicidal thoughts, plan or intention to date. However, given client's history of suicidal behavior client should be monitored closely. Progress Toward Goals/Plan:: Client newly in program as a result limited progress has been observed. Client reports feeling much better since discharging from inpatient hospitalization and expresses desire to maintain this progress given she's had 3 hospitizations in past 6 months. Session focused on identifying treatment goals which client identified she'd like to focus on decreasing depression, utilizing healthy coping skills, and stabilizing moods. Client necessary to continue IOP level of care to decrease depression, maintain safety, and prevent decompensation. Time Stopped:: 09:15
--- NOTE | 2018-02-17 17:26 | BH.SGPN_ITS ---
Service Group Progress Note - Session Psychotherapy Session #2 Date Open:: 02/17/18 Time Started:: 10:07 Time Stopped:: 11:12 Targeted Problem #:: 1 Type of Group:: Illness Management - 5 participants Goal of Group:: The goal of group was to increase understanding of coping strategies and impact problems have on self. Another goal was to practice utilizing coping skills in the moment. Client Response/Progress/Benefit:: Client responded well to session and actively engaged. She shared connecting with the importance of the group topic of coping skills and shared it's how you handle the problem that determines whether it impacts you. Client appeared in a more positive mood today as demonstrated by increased involvement. CLient benefitted from challenging herself to take on a role in which she had to communicate her needs with others during the activity. Cliented did so by volunteering as one of the lead builder' s in the tower stacking challenge. She showed progress in her ability to manage stress as the challenge became difficult and actively worked to provide encouragement. Recommended continued IOP tx to increase emotion regulation and decrease depressive sx as well as prevent decompensation. Eye Contact:: Good Motor Activity:: Appropriate Appearance:: Casual Speech:: Appropriate Mood:: Euthymic, Anxious Affect:: Congruent Thoughts:: Linear, Logical, No evidence of hallucinations/delusions noted Staff Interventions:: Therapist facilitated the group discussion about coping strategies. Therapist provided group members with folders and gave them the challenge to work together and build the tallest tower with the given supplies. Therapist utilized the activity as a tool to process what it feels like when dealing with problems and what strategies they used to cope throughout activity. Psychotherapy Session #3 Date Open:: 02/17/18 Time Started:: 11:18 Time Stopped:: 12:19 Targeted Problem #:: 1 Type of Group:: Functional Skills Development - 5 participants Goal of Group:: Goal was to increase client?s self-awareness on their use of coping strategies and increase repertoire of healthy coping strategies. Client Response/Progress/Benefit:: Client engaged i session and responded well to discussion reviewing the various categories of coping skills. She was able to provided examples for each type discussed and benefitted f rom reviewing when the various skills may be most helpfulin managing mental health symptoms. Client displaying progress in her ability to connect treatment materials to her own life and identified using music as a means for emotional release or grounding. Client recommended continued IOP to improve ability to use healthy skills identified in moment. Eye Contact:: Good Motor Activity:: Appropriate Appearance:: Casual Speech:: Appropriate Mood:: Euthymic Affect:: Congruent Thoughts:: Linear, Logical, No evidence of hallucinations/delusions noted Staff Interventions:: Therapist facilitated discussion about the different types of coping skills. Therapist led group in an activity in which group members were asked to brainstorm coping strategies that fit in each coping skill category. Therapist reviewed each coping strategy with the group and led a discussion about whether the coping strategies identified were healthy or unhealthy. Therapist provided homework in which group members creating a coping skills menu and would practice two skills a day.
--- NOTE | 2018-02-18 14:50 | BH.MTP ---
Master Treatment Plan - Patient Information Program Physician:: Dr. Lai Primary Therapist:: Crystal Costa, [facility] - Psychiatric Diagnoses Psychiatric Diagnoses:: Schizoaffective disorder bipolar type. Anxiety unspecified. PTSD Diagnosis Code(s):: F25.0 - Estimated LOS Estimated LOS (in weeks):: 6 Problem/Goal #1 - Problem/Goal #1 Stated Goal:: Client will increase mood stability and decrease depressive symptoms, anger/irritability, and suicidal ideation due to Schzioaffective disorder through Intensive Outpatient Program. Description of Barriers: Pt has hx of medication noncompliace, 20+ hospitalizations for SI and SA, emotional dysregulation, familial conflicts, and inconsistent use of healthy coping skills. Pt's children can be either a help to progress or a barrier due to pt's mood being dependent on whether she gets to see her children or not. Functional Impact: Pt has been admitted to inpatient unit 3 times in the past 6 months for suicidal thoughts and suicide attempts. Pt unable to work, discord in relationships, and doesn't get out of the house very often. Pt not functioning at baseline and could use support to help maintain stability and keep pt from returning to inpatient unit. Goal Relevant Strengths/Supports: Pt is resilient and motivated to get better. Pt recently became involved in the holiness community, which seems to serve as a positive support for pt. - Objectives Objective #1 Stated Objective: Client will identify and replace 2-3 negative thinking patterns that contribute to increased depressive symptoms. Interventions: Through groups and individual therapy, pt will be provided with education on cognitive distortions, mistaken beliefs, and identifying and combating negative self-talk. Therapist will help pt explore connection between thoughts, feelings, and actions. Discharge Criteria: Pt will be able to identify 2-3 negative thinking patterns and be able to effectively stop, challenge, or cope with those negative thoughts. Target Date: 03/25/18 Review Date: 03/11/18 Objective #2 Stated Objective: Pt will decrease depressive symptoms as evidenced by lowering the score on the DSM 5 cross-cutting measure. Interventions: Therapist will help client identify her triggers and teach client various coping strategies to effectively cope with depressive symptoms. Discharge Criteria: Pt will have reached this goal when her DSM 5 cross cutting score for depression has been decreased. Target Date: 03/25/18 Review Date: 03/11/18 Problem/Goal #2 - Problem/Goal #2 Stated Goal:: Stabilize anxiety level while increasing ability to function on daily basis. Description of Barriers: Pt has hx of medication noncompliace, 20+ hospitalizations for SI and SA, emotional dysregulation, familial conflicts, and inconsistent use of healthy coping skills. Pt's children can be either a help to progress or a barrier due to pt's mood being dependent on whether she gets to see her children or not. Functional Impact: Pt has been admitted to inpatient unit 3 times in the past 6 months for suicidal thoughts and suicide attempts. Pt unable to work, discord in relationships, and doesn't get out of the house very often. Pt not functioning at baseline and could use support to help maintain stability and keep pt from returning to inpatient unit. Goal Relevant Strengths/Supports: Pt is resilient and motivated to get better. Pt recently became involved in the holiness community, which seems to serve as a positive support for pt. - Objectives Objective #1 Stated Objective: Client will learn and utilize 2-3 healthy coping strategies to manage anxious symptoms. Interventions: Therapist will assist client in learning internal coping strategies to manage anxious symptoms, along with helping client identify triggers. Discharge Criteria: Client will have achieved this goal when can verbalize and has consistently applied at least 2 healthy coping strategies. Target Date: 03/25/18 Review Date: 03/11/18 Objective #2 Stated Objective: Reduce anxious symptoms as evidenced by decrease in score on DSM 5 cross-cutting measure. Interventions: Through group and individual sessions pt will learn healthy coping strategies, increased awareness of anxious thinking pattens and triggers to anxiety. Discharge Criteria: Client has met this goal when the DSM 5 cross cutting measure for anxiety has decreased. Target Date: 03/25/18 Review Date: 03/11/18 Problem/Goal #3 - Problem/Goal #3 Stated Goal:: Client will cooperate with physician recommendations for medication stabilization to help manage auditory hallucinations. Description of Barriers: Pt has hx of medication noncompliace, 20+ hospitalizations for SI and SA, emotional dysregulation, familial conflicts, and inconsistent use of healthy coping skills. Pt's children can be either a help to progress or a barrier due to pt's mood being dependent on whether she gets to see her children or not. Functional Impact: Pt has been admitted to inpatient unit 3 times in the past 6 months for suicidal thoughts and suicide attempts. Pt unable to work, discord in relationships, and doesn't get out of the house very often. Pt not functioning at baseline and could use support to help maintain stability and keep pt from returning to inpatient unit. Goal Relevant Strengths/Supports: Pt is resilient and motivated to get better. Pt recently became involved in the holiness community, which seems to serve as a positive support for pt. - Objectives Objective #1 Stated Objective: Client will take psychiatric medications everyday has prescribed by psychiatrist. Interventions: Therapist will educate pt about importance of continued compliance with medication regiment. Discharge Criteria: Client will have met this goal when reports continued compliance with prescribed medication regiment. Target Date: 03/25/18 Review Date: 03/11/18 Objective #2 Stated Objective: Reduce auditory hallucinations as evidenced by decreasing client's score on the DSM 5 cross-cutting measure. Interventions: Therapist will utilize reality testing to ensure client is not experiencing command hallucinations. Discharge Criteria: Pt will have met this goal when score on DSM 5 cross-cutting measure is decreased for psychosis. Target Date: 03/25/18 Review Date: 03/11/18
--- NOTE | 2018-02-24 10:42 | BH.SGPN_ITS ---
Service Group Progress Note - Session Psychotherapy Session #1 Date Open:: 18 - 5 participants Time Started:: 09:00 Time Stopped:: 10:00 Targeted Problem #:: 1 Type of Group:: Process Goal of Group:: The goal of today's group was to check-in with client's mood, stressors, and positives, and introduce topic for the day. Client Response/Progress/Benefit:: Client responded well to session, receptive to strategies provided by peers. Client reports feeling tired and I don't even know today as client shared being frustrated with her mother. Client stated, my mom is in one her foul moods which is causing client to feel anxious and agitated as client's daughter is home with client's mother. Client reported concern that her mother will be mean to her daughter in which case client ?will explode. Therapist and group provided supportive feedback to client and helped client identify strategies to reduce anger and anxiety this morning. Client shared going for walks, getting out of the house, and watching movies with her daughter have helped client cope with strong emotions in the past. Client reports plan to go for a walk today to improve mood and prevent client from exploding. Client appeared to benefit from verbalizing her emotions and developing strategies to improve mood today. Progress noted as client recognizes her emotions and identified healthy ways to cope with them. Client continues to struggle with emotional dysregulation and mood instability and could continue to benefit from IOP. Eye Contact:: Fair Motor Activity:: Appropriate Appearance:: Disheveled Speech:: Appropriate Mood:: Anxious, Irritable Affect:: Constricted Thoughts:: Racing, No evidence of hallucinations/delusions noted Staff Interventions:: Therapist used open-ended questions to elicit information about client's current stressors and mood state. Therapist was supportive by using active listening and reflection.
--- NOTE | 2018-02-24 14:27 | BH.SGPN_ITS ---
Service Group Progress Note - Session Psychotherapy Session #2 Date Open:: 02/24/18 Time Started:: 10:09 Time Stopped:: 11:05 Targeted Problem #:: 1 Type of Group:: Illness Management - 5 participants Goal of Group:: The goal of group was to increase understanding of goals and goal setting benefits and practice a method of goal setting. Client Response/Progress/Benefit:: Client responded well to session and remained actively engaged throughout. She provided input to the discussion and was supportive as other participants shared. Client discussed that setting goals helps to improve our sense of accomplishment and makes difficult things seem possible to achieve. CLient displayed progress in the insights she shared with the group regarding steps to ensure that one creates a goal that will positively contribute to mental health management. She went on to provide an example of choosing toxic people when trying to decrease isolation would negatively impact mental health and be counterproductive to long-term goals of decreasing depression. CLient benefitted from walking through the example of how to apply the SMART goal setting method. CLient recommended continued IOP to maintain stability and further expand client ability to identify and implement healthy means for coping in times of emotional distress. Eye Contact:: Good Motor Activity:: Appropriate Appearance:: Casual Speech:: Appropriate Mood:: Euthymic, Anxious Affect:: Congruent Thoughts:: Linear, Logical, No evidence of hallucinations/delusions noted Staff Interventions:: Therapist facilitated group discussion about goals, potential mental health benefits of setting and working towards achieving goals , and means for goal setting. Therapist taught group the acronym SMART (Specific , Measurable, Achievable, Realistic, Timely) as a tool to help with goal setting. Therapist led the group in an activity to be used as a method of practicing goal setting. Therapist provided the group with a small beach ball and explained their goal was to keep the ball in the air for as long as possible. Therapist guided the group through the SMART acronym as group was participating in activity. Psychotherapy Session #3 Date Open:: 02/24/18 Time Started:: 11:13 Time Stopped:: 12:03 Targeted Problem #:: 1 Type of Group:: Functional Skills Development - 5 participants Goal of Group:: The goal of group was to identify a goal for the week, explore ways to make goal follow SMART goal setting guidelines, identify the potential barriers to achieving that set goal, and identify strategies to overcome barriers. Client Response/Progress/Benefit:: Client again was well engaged in session and an active participant throughout. She appeared to benefit from working through the SMART goal setting worksheet in which client's applied SMART goal setting steps to creating their own mental health goal. CLient did well to ask for assistance and clarification in order to create her own SMART goal and identified wanting to Improve her coping skills by identifying skills she would be interested in trying and then implementing 1-2 new skills each week. Client discussed that this would help improve her ability to regulate emotions and prevent verbal outbursts when communicating with her mother. Recommended continued IOP to maintain stability while continuing to further develop effective communication skills and improve client emotion regulation in times of increased stress. Eye Contact:: Good Motor Activity:: Appropriate Appearance:: Casual Speech:: Appropriate Mood:: Euthymic, Anxious Affect:: Congruent Thoughts:: Linear, Logical, No evidence of hallucinations/delusions noted Staff Interventions:: Therapist explained goal setting activity to group. Therapist provided each group member with a piece of paper and asked them to write down a goal they would like to accomplish over the weekend. Therapist then asked each member to draw a path to their goal and identify barriers that could potentially get in the way of their goal. Therapist led group in processing their goal maps and had them come up with strategies to overcome the barriers. Therapist provided support by using reflective listening.
--- NOTE | 2018-03-07 10:50 | BH.MTP_ITS ---
Master Treatment Plan - Patient Information Program Physician:: Dr. Lai Primary Therapist:: Crystal Costa, [facility] - Psychiatric Diagnoses Psychiatric Diagnoses:: Schizoaffective disorder bipolar type. Anxiety unspecified. PTSD Diagnosis Code(s):: F25.0 - Estimated LOS Estimated LOS (in weeks):: 6 Problem/Goal #1 - Problem/Goal #1 Stated Goal:: Client will increase mood stability and decrease depressive symptoms, anger/irritability, and suicidal ideation due to Schzioaffective disorder through Intensive Outpatient Program. Description of Barriers: Pt has hx of medication noncompliace, 20+ hospitalizations for SI and SA, emotional dysregulation, familial conflicts, and inconsistent use of healthy coping skills. Pt's children can be either a help to progress or a barrier due to pt's mood being dependent on whether she gets to see her children or not. Functional Impact: Pt has been admitted to inpatient unit 3 times in the past 6 months for suicidal thoughts and suicide attempts. Pt unable to work, discord in relationships, and doesn't get out of the house very often. Pt not functioning at baseline and could use support to help maintain stability and keep pt from returning to inpatient unit. Goal Relevant Strengths/Supports: Pt is resilient and motivated to get better. Pt recently became involved in the christian community, which seems to serve as a positive support for pt. - Objectives Objective #1 Stated Objective: Client will identify and replace 2-3 negative thinking patterns that contribute to increased depressive symptoms. Interventions: Through groups and individual therapy, pt will be provided with education on cognitive distortions, mistaken beliefs, and identifying and combating negative self-talk. Therapist will help pt explore connection between thoughts, feelings, and actions. Discharge Criteria: Pt will be able to identify 2-3 negative thinking patterns and be able to effectively stop, challenge, or cope with those negative thoughts. Target Date: 03/25/18 Review Date: 03/11/18 Objective #2 Stated Objective: Pt will decrease depressive symptoms as evidenced by lowering the score on the DSM 5 cross-cutting measure. Interventions: Therapist will help client identify her triggers and teach client various coping strategies to effectively cope with depressive symptoms. Discharge Criteria: Pt will have reached this goal when her DSM 5 cross cutting score for depression has been decreased. Target Date: 03/25/18 Review Date: 03/11/18 Problem/Goal #2 - Problem/Goal #2 Stated Goal:: Stabilize anxiety level while increasing ability to function on daily basis. Description of Barriers: Pt has hx of medication noncompliace, 20+ hospitalizations for SI and SA, emotional dysregulation, familial conflicts, and inconsistent use of healthy coping skills. Pt's children can be either a help to progress or a barrier due to pt's mood being dependent on whether she gets to see her children or not. Functional Impact: Pt has been admitted to inpatient unit 3 times in the past 6 months for suicidal thoughts and suicide attempts. Pt unable to work, discord in relationships, and doesn't get out of the house very often. Pt not functioning at baseline and could use support to help maintain stability and keep pt from returning to inpatient unit. Goal Relevant Strengths/Supports: Pt is resilient and motivated to get better. Pt recently became involved in the christian community, which seems to serve as a positive support for pt. - Objectives Objective #1 Stated Objective: Client will learn and utilize 2-3 healthy coping strategies to manage anxious symptoms. Interventions: Therapist will assist client in learning internal coping strategies to manage anxious symptoms, along with helping client identify triggers. Discharge Criteria: Client will have achieved this goal when can verbalize and has consistently applied at least 2 healthy coping strategies. Target Date: 03/25/18 Review Date: 03/11/18 Objective #2 Stated Objective: Reduce anxious symptoms as evidenced by decrease in score on DSM 5 cross-cutting measure. Interventions: Through group and individual sessions pt will learn healthy coping strategies, increased awareness of anxious thinking pattens and triggers to anxiety. Discharge Criteria: Client has met this goal when the DSM 5 cross cutting measure for anxiety has decreased. Target Date: 03/25/18 Review Date: 03/11/18 Problem/Goal #3 - Problem/Goal #3 Stated Goal:: Client will cooperate with physician recommendations for medication stabilization to help manage auditory hallucinations. Description of Barriers: Pt has hx of medication noncompliace, 20+ hospitalizations for SI and SA, emotional dysregulation, familial conflicts, and inconsistent use of healthy coping skills. Pt's children can be either a help to progress or a barrier due to pt's mood being dependent on whether she gets to see her children or not. Functional Impact: Pt has been admitted to inpatient unit 3 times in the past 6 months for suicidal thoughts and suicide attempts. Pt unable to work, discord in relationships, and doesn't get out of the house very often. Pt not functioning at baseline and could use support to help maintain stability and keep pt from returning to inpatient unit. Goal Relevant Strengths/Supports: Pt is resilient and motivated to get better. Pt recently became involved in the christian community, which seems to serve as a positive support for pt. - Objectives Objective #1 Stated Objective: Client will take psychiatric medications everyday has prescribed by psychiatrist. Interventions: Therapist will educate pt about importance of continued compliance with medication regiment. Discharge Criteria: Client will have met this goal when reports continued compliance with prescribed medication regiment. Target Date: 03/25/18 Review Date: 03/11/18 Objective #2 Stated Objective: Reduce auditory hallucinations as evidenced by decreasing client's score on the DSM 5 cross-cutting measure. Interventions: Therapist will utilize reality testing to ensure client is not experiencing command hallucinations. Discharge Criteria: Pt will have met this goal when score on DSM 5 cross- cutting measure is decreased for psychosis. Target Date: 03/25/18 Review Date: 03/11/18
[2018-04-15 13:51] VITALS: BP 139/84; PULSE 74; RESP 16
== END 2018-02-26 23:59 ==
LOC: BHIOP 09:00
PROVIDERS: Family Provider Nurse Practitioner Family; PCP Nurse Practitioner Family; Visit Provider Psychiatry & Neurology Psychiatry
DX: F25.0 Schizoaffective disorder, bipolar type (principal); F41.9 Anxiety disorder, unspecified; F43.10 Post-traumatic stress disorder, unspecified; F17.210 Nicotine dependence, cigarettes, uncomplicated; E55.9 Vitamin D deficiency, unspecified; R46.81 Obsessive-compulsive behavior; Z79.899 Other long term (current) drug therapy; I10 Essential (primary) hypertension; E78.00 Pure hypercholesterolemia, unspecified; K21.9 Gastro-esophageal reflux disease without esophagitis
CPT/HCPCS: H0035; 90834; 90853

== ENCOUNTER 2018-03-07 09:00 | Outpatient (RCR) | payer MEDICARE, MEDICAID, SELFPAY ==
--- NOTE | 2018-03-07 09:10 | BH.SGPN.GN ---
Behaviors/Verbalizations/Mental Status: []Client eye contact fair and often appeared avoidant. Motor activity was restless as Client got up and left the room for a few seconds several times throughout session. Her appearance was casual and comfortable. Speech WNL, mood irritable, affect constricted. Thoughts appeared preoccupied as client was distant and seemed distracted by self, no apparent delusions or hallucinations. Client Response/Progress/Benefit: [] Client receptive of session, though struggled to remain engaged throughout. She appeared preoccupied by her own thoughts as she often was looking down and disconnected from the group conversation. Client was restless and appeared to be struggling with focus AEB the fact that she got up to leave on various occasions without notice, often returning several seconds later. Client struggled to remain connected with what fellow participants were discussing and declined to share with the group. She did however appear to benefit from the structured and supportive setting as this was a safe place for client to work through managing her irritability. Client recommended continued IOP to continue to prevent decompensation, improve mental health symptoms, and increase emotion regulation skills.
--- NOTE | 2018-03-07 09:54 | BH.MDN ---
Multi-Disciplinary Note - Note 30-min Individual Time Started:: 08:30 Date: 03/07/18 Purpose of session/treatment goals addressed:: Purpose of session was to assess current symptoms and stressors. Other topics included: reviewing treatment progress, identifying positives, and creating plan on what can help home situation. Eye Contact:: Fair Motor Activity:: Appropriate Appearance:: Disheveled Speech:: Appropriate Mood:: Dysthymic Affect:: Flat Thoughts:: Linear, Logical, No evidence of hallucinations/delusions noted Staff Interventions:: Therapist used open ended questions to elicit pt's current symptoms and stressors. Processed the last week since pt couldn't make it to IOP at all due to taking care of her father. Therapist attempted to help pt identify what skills helped her maintain mood stabilization during stressful time. Therapist elicited pt's thoughts about treatment progress. Therapist provided support by using active listening. Therapist encouraged pt to talk with pt's mother to set up a family sesssion. Thearapist provided homework to pt to talk with pt's mother on what chores pt should be doing around the house. Client Response:: Pt reported last week went overall good. Pt shared she had to take step-dad to all his check-up appointments for his throat cancer to ensure he is still in remission. Pt shared on Wednesday she was supposed to go pick her son up to have him for a week, but the person that was suppposed to give her a ride to get him called and said they were too tired. Pt reported it really upset her that someone she was counting on for help let her down, which resulted in pt having to break the bad news to her son. Pt shared initially she wanted to isolate because was feeling depressed, however pt stated having her daughter still at her house stopped her from going into deep depression or from coping in an unhealthy manner. Pt shared since her car is broke and is unsure of when she can afford to get it fixed she probably won't be able to see her son for another month. Pt reported she would't ask another mandaen friend for a ride since the last one let her down. However, with assistance pt was able to recognize that statement was distorted and shouldn't overgeneralize one person's actions to everyone. Pt reported she would consider asking a friend from [employer] to help her out. Pt shared overall her mood has been more stable over the past two weeks, connecting she tends to be in a better place when her daughter is around. Pt unsure of what she will do when her daughter goes home this week because currently she plays games with her daughter or listens to music. Pt reported continuing to have problems with her mom and pt shared pt's daughter and herself just stay in pt's room to avoid dealing with her mom right now. Pt shared each arguement her mom will complain that pt isn't doing enough around the house. Pt agreeable to talk with her mom to create a list of what her mom would like pt to complete to help out around the house. Pt recognizes this could decrease the outbursts her mom has towards pt, which tend to negatively impact pt's mood. Pt reported she is interested in a family session, but is unsure if this can happen now that hte family car is broken. Risks/Concerns:: Pt denies current SI, plan or intention to date. Pt's children serve as a protector factor. Pt has extensive hx of suicidal behavior and will continued to assessed throughout program. Progress Toward Goals/Plan:: Pt is demonstrating progress as evidenced by pt reported improved mood stability, decreased depression, and not having suicidal ideation. Pt has had daughter for the past two weeks which has had a positive impact on pt's mood, the concern will be how pt can handle her emotions once her daughter goes home this week. Plan is to continue IOP level of care to maintain gains, improve mood stability, and improve daily functioning. Time Stopped:: 08:55
--- NOTE | 2018-03-07 10:27 | BH.SGPN.GN ---
Behaviors/Verbalizations/Mental Status: []Client alert and oriented, dress casual. Eye contact good. Motor activity restless. Speech soft, but within normal limits. Affect flat, mood irritable, dysthymic. Thoughts linear, logical, no signs of hallucinations or delusions. Client Response/Progress/Benefit: []Client responded well to session, participating when prompted. Client connected with the topic sharing, Im always stressed out and I have a hard time dealing with it. Client helped group identify the physical, mental, behavioral, and emotional impacts of stress. Client reported distress can lead to muscle tension, nausea, and panic. Client identified current stressors in her life such as finding a job, money, and relationship with her mother. Client shared her stress jar is overflowing. Client stated when her stress is overflowing client has increased racing thoughts, urges to self-harm, and client thinks why bother. Client shared she can listen to her bible on tape today to help reduce some of her stress. Client appeared to benefit from gaining awareness of her current stressors and how they impact mental health. Client to continue IOP to prevent decompensation and increase emotional regulation skills to reduce self-harming behaviors.
--- NOTE | 2018-03-07 10:48 | BH.TPR ---
Treatment Plan Review Date of Admission:: 02/11/18 Date of Treatment Plan Review:: 03/07/18 Admitting Diagnoses:: Schizoaffective disorder bipolar type F25.0. Anxiety unspecified. PTSD. Obsessive-compulsive traits nicotine use disorder Current Diagnoses:: Schizoaffective disorder bipolar type F 25.0. Anxiety unspecified. PTSD. Obsessive-compulsive traits nicotine use disorder Patient's Response to Treatment:: Pt has been struggling with attending the program consistently due to having to help her step-dad make his doctor appointments. When pt does attend she contributes her thoughts and ideas, overall appears engaged. Status of Current Problems and Symptoms: Reports her symptoms have dramatically decreased over the past couple weeks, which seems to be connected with the fact her daughter has been visiting since two weeks ago. Pt expresses some concern about her stability when her daughter goes back home this week. Pt reports depressive state when found out she wouldn't get to see her son this week. Pt better able to manage emotions due to daughter being around. Pt reports continuing to isolate in room to avoid having to deal with her mother. Pt continues to have anger outbursts towards her mom when her mom isn't nice. Pt's symptoms have decreased significantly, however pt to remain in IOP level of care to ensure stability and progress are maintained once pt's daughter is no longer staying with pt starting this week. Problem #1 Problem Name:: depression Status of Goals:: Pt has met her objective of decreasing her depressive symptoms as evidenced by DSM 5 cross cutting measure. Pt went from a score of 6 out of 8 on initial measure to a 2 out of 8 on the review date measure. This significant drop in symptoms indicates progress with decreased depressive symptoms. Pt has not attending consistently enough for a focus on identifying and challenging negative thought patterns. Team Recommendations:: Team recommends pt continue objective of identifying negative thoughts and reframing since pt hasn't attended consistently enough for this objective to be fully addressed. It is also recommended to focus on maintaining pt's new score on the DSM 5 cross-cutting measure of a 2 out of 8 for depressive symptoms. Problem #2 Problem Name:: anxiety Status of Goals:: Pt has met goal of reducing anxiety symptoms as evidenced by decrease in score as evidenced by DSM 5 cross cutting measure score. At intake pt scored a 9 out of 12 for the anxiety section of the measure. Pt scored at 4 out of 12 on the review DSM 5 cross cutting measure, which indicates a significant decline in pt's anxious symptoms. Pt is unable to identify specific coping skills she has used to reduce her anxiety, attributes reduction of anxiety to having daughter home with her. Team Recommendations:: Team recommends pt continue to work on tx plan. Pt is unable to identify specific healthy coping skills that reduce her anxious symptoms. Pt's DSM 5 measure demonstrates reduction in anxious symptoms and team recommends focus is on maintaining the current score on DSM 5 measure. Problem #3 Problem Name:: auditory hallucinations Status of Goals:: Pt has met goal as evidenced by pt reporting consistently taking her psychiatric medications every day as prescribed. Pt reports auditory hallucinations occur infrequently and if she experiences an auditory hallucination she is able to differentiate between what is reality. On the DSM 5 cross cutting measure at intake pt scored a 4 out of 4 for psychosis. At the review date pt scored a 1 out of 4 on the DSM 5 cross cutting measure ofr psychosis, which indicates a significant reduction in symptoms. Team Recommendations:: Pt progressing well on treatment goals, continue with plan to maintain gains and prevent decompensation.
--- NOTE | 2018-03-07 11:29 | BH.SGPN.GN ---
Behaviors/Verbalizations/Mental Status: []Client alert and oriented, dress casual. Eye contact fair. Motor activity appropriate. Speech within normal limits. Affect flat, mood depressed, irritable. Thoughts linear, logical, no signs of hallucinations or delusions Client Response/Progress/Benefit: []Client responded well to session, active participant. Client engaged in the group activity, contributing positively, using in the moment coping, and providing ideas. Client helped the group create a list of helpful stress management strategies and identified strategies that would help her deal with stress such as thinking of the positives and focusing on stressors in her control. Client reported of her current stressors, her mental health is in clients control. Client shared she has a hard time coping with stressors out of her control such as others emotions and actions towards client. Client was receptive to learning the four As of coping with stress and appeared to benefit from learning different ways to manage stress. Client continues to struggle with applying internal coping skills, and reports her mood stability correlates with the supports around client. Client to continue IOP to prevent decompensation and increase use of internal coping skills.
--- NOTE | 2018-03-09 09:05 | BH.SGPN.GN ---
Behaviors/Verbalizations/Mental Status: [] Client remained alert and oriented throughout session. Eye contact is fair as client was often looking at the ground or her necklace. Motor activity appeared appropriate-fidgety at times AEB messing with necklace, wringing hands, and shifting in seat. Appearance was casual and comfortable with appropriate grooming and hygiene. Client speech was soft. Mood euthymic, expressed as hanging in there. Client affect was constricted. Thoughts linear and logical, no signs of hallucinations or delusions. Therapist reviewed clients symptom tracker to assess for intensity of mental health symptoms and identify risk for suicide. No signs of suicidal ideation, plan, or intent to date. Client Response/Progress/Benefit: [] Client was receptive of meeting for process group, mostly engaged throughout however at times appeared distracted by her own thoughts. She did well to process with the group and shared being in a positive mood today as her daughter is still here visiting. Client went on to explain that her daughter had initially been planned to be going home Wednesday; however, due to outside circumstances was unable to will be visiting until mid week. She discussed that having her daughter around has made easier for client to manage her emotions and deal with stressors related to ongoing tension with client's mother. Client indicated not knowing what she is going to do and her daughter returns home and was receptive of this therapist Recommendation client identify things she can do to fill her void in time following her daughter's departure. Client making progress in her ability to be receptive of the help and encouragement of the group as well as trying to apply emotion regulation skills learned in IOP program. Recommended continued IOP to further improve use of distress tolerance and stress management skills as well as prevent decompensation.
--- NOTE | 2018-03-09 10:13 | BH.SGPN.GN ---
Behaviors/Verbalizations/Mental Status: []Client alert and oriented, dressed somewhat disheveled, hygiene poor. Speech within normal limits. Good eye contact. Motor activity appropriate. Mood depressed and irritable, affect flat. Thoughts linear and logical, no signs of hallucinations or delusions. Client Response/Progress/Benefit: []Client responded well to session, active participant. Client appeared to connect with the quote sharing, the barriers we put in front of ourselves are 10x harder to overcome. Client created a visual representation of her current mental wellness reality as client is client on a hill in a truck without brakes and Im about to go down. Client shared she feels this way because of current issues with her mother, her daughter leaving, and jumping to conclusions. Client reported her desired reality is to have brakes and be on a steady road with my children. Client shared her desired reality feels really far away as client has a hard time managing her emotions and dealing with supports in her life. Client appeared to benefit from gaining awareness of her current reality and the barriers that keep client from achieving her desired reality. Client seems to be progressing as shown by her ability to prevent decompensation, but reports ongoing challenges with interpersonal relationships and managing emotions. Client to continue IOP to prevent decompensation and maintain safety.
--- NOTE | 2018-03-09 11:15 | BH.SGPN.GN ---
Behaviors/Verbalizations/Mental Status: []Client alert and oriented, appearance disheveled, hygiene poor. Speech within normal limits. Good eye contact. Motor activity appropriate. Mood depressed, affect constricted, but smiling at times from interactions with peers. Thoughts linear and logical, no signs of hallucinations or delusions. Client Response/Progress/Benefit: []Client responded well to session, engaged in activity and receptive to feedback. Client identified obstacles keeping client from achieving mental wellness as negative thinking, depression, isolation, and feeling overwhelmed. Client did well in the activity to problem-solve strategies to overcome personal barriers and use supports. Client reported if you keep avoiding your obstacles you wont grow. Client created a list of strategies to overcome her barriers such as challenging unhelpful thoughts, taking on one stressor at a time, using deep breathing, and using positive self-talk. Client appeared to benefit from using in the moment problem-solving strategies to overcome barriers. Progress noted as shown by clients ability to maintain safety and refrain from unhealthy coping while feeling depressed, but can continue to benefit from IOP to prevent decompensation.
--- NOTE | 2018-03-10 09:10 | BH.SGPN.GN ---
Behaviors/Verbalizations/Mental Status: [] Eye contact is poor. Motor activity is slowed. Appearance is disheveled. Speech is appropriate. Mood is euthymic. Affect is flat. Thoughts are linear and logical. No evidence of hallucinations or delusions noted. Client Response/Progress/Benefit: [] Pt spoke when prompted. Did not provide feedback or engage in group discussions. Emotion for today is happy which she suggests is related to external stressor reduction mainly that her mother is away for the next 3 days on a camping trip. Vented some frustrations with her mother and discussed their conflicted relationship. Appears that pt will isolate when mother is home in an effort to avoid her. Group provided support regarding this stressor. Progress noted per pt report however mainly attributes to mother not being at home. Reports that she is managing her mood effectively and appropriately. Will continue in IOP to prevent decompensation, provide support, and stabilize mood.
--- NOTE | 2018-03-10 10:05 | BH.SGPN.GN ---
Behaviors/Verbalizations/Mental Status: []Client alert and orient x3. Appropriate motor activity, clear and consistent eye contact. Speech soft, though WNL. Appearance is disheveled - wearing ill fitting clothing and broken glasses. Appropriate to client baseline. Mood euthymic, affect flat. Thoughts linear, logical, and void of apparent hallucination/delusion. Client Response/Progress/Benefit: [] Client responded well to session. She remained actively engaged in the discussion covering healthy boundaries. Client discussed that setting personal boundaries is important and identified with often putting others needs before hers which has negatively impacted client self-care in the past. She appeared to benefit from shared experiences discussed by fellow group members as well as a review of healthy versus unhealthy boundary setting. Client indicated connecting with permeable boundaries as she indicated struggling to say no to others. Progress is noted in client's ability to display insight regarding personal boundary setting. Recommended continued IOP in order to promote ongoing treatment progress and maintain stability as client improves consistent use of appropriate coping skills. Narrative Note: []
--- NOTE | 2018-03-10 11:12 | BH.SGPN.GN ---
Behaviors/Verbalizations/Mental Status: [Client alert and orient x3. Motor activity mostly appropriate, however at times appearing restless. Eye contact remained fair throughout, sometimes looking away or staring in no particular direction. . Speech WNL, appropariate rate and tone. CLient appearance was disheveled and client wearing ill fitting attire, grooming and hygiene appeared cared for. Mood was mostly euthymic, at times appearing disinterested. affect flat. Thoughts remained linear and logical, no noted delusion or hallucinations.] Client Response/Progress/Benefit: [Client responded mostly well to session, however at times appeared disengaged. Client willing to complete the boundary drawing activity and openly described her interpretation to the group. She shared that for her boundaries currently feel like she is alone out on the ocean in a storm. She shared wanting to change this image so that she is on a calm sea with her supports and a life boat. Client indicated that she would like to open herself up to share with others while remembering to also ensure she is not tempted to take on others problems as well. Benefitted from reviewing boundary setting techniques and identifying specific skills she may benefit from beginning to implement in her own life. Recommended continued IOP tx to prevent decompensation and continue to promote use of effective communication skills with supports.] Narrative Note: []
--- NOTE | 2018-03-17 09:04 | BH.SGPN.GN ---
Behaviors/Verbalizations/Mental Status: [] Pt eye contact fair, disheveled in appearance, motor activity appropriate, speech normal rate and tone, mood irritable and dysthymic, flat affect, thoughts linear and intact, no evidence of delusions or hallucinations. Reviewed client?s symptom tracker, no signs of suicidal ideation, plan, or intent as of today. Client Response/Progress/Benefit: []Pt reported she hasn't been feeling well because couple of weeks she was diagnosed with diabetes, so it is taking time for her to adjust her diet. Pt shared she has been isolating over the past several days because when she is around her mom it turns into an argument. Pt stated she would rather be in her room and isolate instead of being around her annoying mom. Pt struggled with identifying other ways she could cope with the conflict she is having with mom. Pt accepted the suggestion of going for a walk on the trail near house versus isolating. Pt seemed to benefit from expressing thoughts and feelings. Pt to continue IOP level of care to stabilize moods, improve daily functioning, and prevent decompensating. Narrative Note: []
--- NOTE | 2018-03-17 10:03 | BH.SGPN.GN ---
Behaviors/Verbalizations/Mental Status: []Client alert and oriented, dress appropriate, poor hygiene. Fair eye contact. Motor activity appropriate. Speech within normal limits. Affect constricted, mood depressed and irritable. Thoughts linear, logical, no signs of hallucinations or delusions. Client Response/Progress/Benefit: [] Client responded well to session, providing insight to discussion. Client connected with the quote sharing I keep myself from talking with my supports. Client identified benefits of effective communication in mental health and relationships such as expressing emotions and warning signs. Client stated negative thinking and isolation can keep client from communicating. Client reported she often uses passive communication as client stated she shuts down, especially when client is depressed, and does not share her thoughts, feelings, and emotions. Client reported I can see myself heading down that path again, but with elicitation, client recognized ways she can prevent decompensation. Client appeared to benefit from identifying how her communication style impacts mental health and relationships. Progress variable as client appears to demonstrate stability when she has her children, but struggles to utilize internal coping skills. Client to continue IOP to prevent decompensation.
--- NOTE | 2018-03-17 11:10 | BH.SGPN.GN ---
Behaviors/Verbalizations/Mental Status: []Client alert and oriented, dress appropriate, hygiene poor. Eye contact fair. Motor activity appropriate. Speech within normal limits. Affect congruent, mood euthymic, irritable. Thoughts linear, logical, no signs of hallucinations or delusions. Client Response/Progress/Benefit: []Client responded well to session, active participant. Client participated in the communication activity and was able to use specific communication with her peers. Client connected the activity to her life sharing it's hard to explain things if our supports don't understand. Client helped the group identify strategies to improve communication such as managing emotions, being clear and asking clarifying questions, and challenging assumptions. Client appeared to benefit from using assertive communication in the moment and gaining support from peers to help client challenge barriers to communication. Client to continue IOP to prevent decompensation and increase mood stability.
--- NOTE | 2018-03-17 17:35 | BH.MDN ---
Multi-Disciplinary Note - Note 30-min Individual Time Started:: 12:00 Date: 03/17/18 Purpose of session/treatment goals addressed:: Purpose of session was to assess current symptoms and stressors. Other topics included: emotional regulation, healthy coping skills, and treatment progress. Eye Contact:: Fair Motor Activity:: Appropriate Appearance:: Disheveled Speech:: Appropriate Mood:: Depressed Affect:: Flat Thoughts:: Linear, No evidence of hallucinations/delusions noted Staff Interventions:: Therapist used open ended questions to elicit pt's current symptoms and stressors. Therapist processed pt's recent stressor about increased conflict with pt's mom, resulting in increased isolation. Assisted pt with identifying impact isolation can have on her mental health. Discussed different strategies and activities pt could engage in to keep herself from isolating and will help her get out of the house. Encouarged pt to discuss with pt's mom about having a family session. Provided homework to pt of getting out of the house at least once per day, walking away from an argument when becoming too upset, and identifying groups she would be willing to attend at [employer]. Discussed treatment progress, identified tentative plan for discharge. Client Response:: Pt reported she is feeling increased stress and irritability over the past couple days because she keeps getting into arguements with her mom. Pt shared as a result of the increased arguing she has been isolating in her room. Pt reported her isolation is positive so she doesn't continue to fight with her mom, but able to recognize if she continues to isolate it will ultimately impact her mental health negatively. Pt shared she has noticed she is starting to decompensate with having some thoughts of self-harm, but was able to stop herself by thinking about her kids. Reported since her daughter went back home, she has had increased difficulty coping. Pt struggled with identifying what else she can do to manage the increased conflict with her mom besides isolating. With assistance pt agreeable to try and get out of the house at least once per day by taking a walk and during the week looking into attending the [employer] groups. Pt able to identify when she gets really angry she feels tingling in her body and her fists clench, when she notices these warning signs pt reported she will take a break from talkign with her mom so she doesn't say or do anything pt will regret. Pt reported she doesn't feel ready to discharge from IOP next week given she has missed several days due to having to care for her father and being sick herself. Pt shared she would like to make up those days she missed so she will have more time to practice using the skills and maintain stablility, especially since she doesn't have her kids visiting her right now. Risks/Concerns:: Pt reports passive thoughts of , denies plan or intention to date. Pt agreeable to call crisis or go to nearest emergency room if feeling she is unable to maintain safety. Pt identified her children to be reasons to stay alive. Progress Toward Goals/Plan:: Pt starting to decompensate since pt's daughter has gone back home after her visit. Pt has increased isolative behaviors, increased agitation, and depressive symptoms. Pt reports she recognizes she is starting to struggle and is concerned she will decompensate. Progress noted with pt's increased awareness of her warning signs. Pt to continue IOP level of care to stabilize moods and prevent further decompensation. Time Stopped:: 12:30
--- NOTE | 2018-03-21 09:10 | BH.SGPN.GN ---
Behaviors/Verbalizations/Mental Status: [] Pt eye contact fair, casually dressed, motor activity restless, speech normal rate and tone, mood dysthymic, flat affect, thoughts linear and logical, no evidence of delusions or hallucinations. Reviewed client?s symptom tracker, no signs of suicidal ideation, plan, or intent as of today. Client Response/Progress/Benefit: [] Client reported her mom is still in 1 of her moods. Client shared she has been trying to avoid dealing with her mom by isolating. Able to recognize if she continued continues to isolate it can eventually have a negative impact on her mental health. Client reported in addition to struggling with getting along with her mom she is having increased physical problems with her diabetes because her blood sugar level keeps raising. Client reported she will be seeing her medical doctor today to talk about her diabetes and hopefully come up with ideas to help her manage her sugar level appropriately. Client shared she is open to attending a [employer] house as a former support and a way to get out of the house so she does not have to isolate to avoid dealing with her mom. Client seemed to benefit from expressing thoughts and emotions as well as getting different strategies and ideas to help her deal with her current situation. Client progress could be hindered by lack of follow-through with ideas and strategies that could be beneficial to her mental health. Client to continue IOP level of care to decrease depression, decrease isolated behaviors and prevent decompensation. Narrative Note: []
--- NOTE | 2018-03-21 10:22 | BH.SGPN.GN ---
Behaviors/Verbalizations/Mental Status: [Client eye contact good, dress disheveled - broken and taped glasses, ill fitting attire, motor activity restless - fidgeting with clothing and glasses, shifting in seat frequently, speech normal rate and tone, mood euthymic, congruent affect, thoughts linear and logical, no evidence of delusions or hallucinations.] Client Response/Progress/Benefit: [Client responded well to session and provided input throughout. She indicated connecting with the group topic of managing change and discussed that for her change can be difficult as she gets anxious about the unknown. Client stated that her mental health at times is impacted when experiencing difficulties with change as she may have tension with supports due to becoming irritable or depressed. She benefitted from shared experiences normalizing client struggles with change and support provided by the group. Client demonstrating progressing in her ability to relate treatment content to her own mental health. She is recommended continued IOP tx to further improve consistent application of skills learned as well as prevent decompensation.] Narrative Note: []
--- NOTE | 2018-03-21 11:29 | BH.SGPN.GN ---
Behaviors/Verbalizations/Mental Status: [Client eye contact fair, disheveled - glasses broken and taped - part of tennis shoes coming off, motor activity WNL, speech normal rate and tone, mood euthymic, congruent affect, thoughts linear and logical, no evidence of delusions or hallucinations. ] Client Response/Progress/Benefit: [Client did well to again engage in both activity and discussion portions of session. She actively listened throughout the discussion reviewing the change process introduced in previous session. Client worked with fellow participants on completing the [employer] activity and benefitted from working to collaboratively problem solve strategies for managing the unpredictability of the ball's activity. CLient displayed progress in her ability to make connections between the strategies used in the activity and strategies for managing change in daily life. She expressed use of increased communication with supports as something applicable to her ability to better manage change. Client recommended continued IOP tx to prevent decompensation and continued to improve emotion regulation skills. ] Narrative Note: []
--- NOTE | 2018-03-23 09:05 | BH.SGPN.GN ---
Behaviors/Verbalizations/Mental Status: []Client alert and oriented, dress casual, hygiene poor hair appeared unwashed. Eye contact good. Motor activity appropriate. Speech within normal limits. Affect flat, mood dysthymic, anxious, irritable. Thoughts linear, logical, no signs of hallucinations or delusions. Reviewed clients symptom tracker, no risk for suicidal ideation, plan, or intent as of 03/23/18. Client Response/Progress/Benefit: []Client responded well to session, quiet, but receptive to coping ideas provided by peers. Client reports feeling depressed and anxious today because client's father physical health is declining. Client shared I don't know what to do and it's all I can think about. Client was receptive to feedback from peers regarding healthy coping skills client can use today. Client stated she can listening to her bible on tape and write notes to give to her father today to improve her mood and prevent decompensation. Client appeared to benefit from hearing coping strategies from peers and identifying past strategies that have helped client manage anxiety and depression in the past. Progress noted as client has been able to maintain safety, but continues to struggle with emotional regulation and implementing healthy coping skills.
--- NOTE | 2018-03-23 10:30 | BH.SGPN.GN ---
Behaviors/Verbalizations/Mental Status: [] Pt eye contact fair, casually dressed, motor activity appropriate, speech normal rate and tone, mood dysthymic, constricted affect, thoughts linear and intact, no evidence of delusions or hallucinations. Client Response/Progress/Benefit: []Pt passive participant, contributed if elicited by therapist and listened attentively to others. Pt seemed to connect with others that it takes a lot of effort and work to see positive change in self. Agreed that many things can get in the way of following through with needed changes. Pt identified bipolar disorder, depression, anxiety, isolation, and fear of failure as things that can get in her way from progress. Pt seemed to benefit from increased awareness into what can get in the way of her making positive changes and progress. Pt to continue IOP level of care to improve mood stability, improve daily functioning, and prevent decompensation. Narrative Note: []
--- NOTE | 2018-03-23 11:30 | BH.SGPN.GN ---
Behaviors/Verbalizations/Mental Status: [] Pt eye contact fair, casually dressed, motor activity appropriate, speech normal rate and tone, mood dysthymic, constricted affect, thoughts linear and intact, no evidence of delusions or hallucinations. Client Response/Progress/Benefit: []Pt contributed to discussion and listened attentively to others. Pt reported for her 30 day plan she would focus on reducing negative self-talk because she would like to improve her self-esteem. Pt shared her first goal is to identify every morning 3 positives about herself to improve self esteem. Pt identified her next goal is to identify 3 positives every evening from her day. Pt reported she will limit how much TV she watches daily to 3 hours a day because she identifies watching TV to increase her isolation and stagnation. Pt reported she will also limit how much time she spends around negative people because others negativity can have an impact on her moods. 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 Narrative Note: []
--- NOTE | 2018-03-25 10:52 | BH.DS ---
Discharge Summary - Demographics Date of Admission:: 02/11/18 Discharge Date: 03/25/18 Presenting Problems at Admission:: Patient is a 37-year-old female with history of schizoaffective disorder and borderline personality disorder who previously participated in the behavioral medicine [facility] in 2014. Pt referred to [facility] level of care by outpatient counselor and psychiatrist due to worsening depression, mood instability, and 3 recent psychiatric admissions for suicidal ideation and 2 suicide attempts. She endorses depressed mood, anhedonia, decreased energy, difficulty concentrating. She reports having some passive thoughts of in December. She denies current suicidal ideation. Discharge Diagnoses:: Schizoaffective disorder bipolar type F 25.0. Anxiety unspecified. PTSD Reason for Discharge:: Pt discharged from [facility] level of care due to suicidal behavior which led to pt needing higher level of care. Pt admitted to [facility]. - Treatment Progress During Treatment & Response: Pt initially was showing significant progress, however started to decompensate when pt's daughter's 2 week visit ended. Once pt's daughter left pt started to struggle with managing conflict at home with pt's mother. Pt recently started to isolate and did not apply her learned skills consistently. Pt also struggled with consistent attendance which may have impacted her treatment progress. When pt attended to was engaged in activities and discussion. Struggled with generalizing skills learned. Issues Still to be Addressed:: Pt could benefit from continued review of healthy coping skills to help improve mood stability. Also could benefit from family counseling specifically with pt and pt's mother to help decrease conflict and improve support. It would be beneficial to identify plan to help pt generalize her healthy skills on more consistent basis. Discharge Recommendations/Instructions:: Pt recommended to follow through with recommendations made by Demetrice Blair. Discharge Handout: Complete Discharge Handout with client on aftercare options and continuity of care.
== END 2018-03-25 09:00 | disposition short-term general hospital (02) ==
LOC: BHIOP 09:00
PROVIDERS: Family Provider Nurse Practitioner Family; PCP Nurse Practitioner Family; Visit Provider Psychiatry & Neurology Psychiatry
DX: F25.0 Schizoaffective disorder, bipolar type (principal); F41.9 Anxiety disorder, unspecified; F43.10 Post-traumatic stress disorder, unspecified
CPT/HCPCS: H0035; 90832; 90853

== ENCOUNTER 2018-03-24 15:53 | Emergency (ER) | payer MEDICARE, SELFPAY ==
[2018-03-24 15:54] VITALS: BP 160/95; PULSE 85; RESP 17; TEMP 36.8; O2SAT 98; BMI 40.7
--- NOTE | 2018-03-24 16:08 | NURSING ---
CALLED [facility]. TALKED TO DONTE. LET HER KNOW THAT PATIENT IS IN OUR ER. SOMEONE WILL BE COMING IN AT 1630 AND SHE WILL SEND THEM OVER TO SEE PATIENT
--- NOTE | 2018-03-24 16:14 | ED.DCSUM_ITS ---
- ER Visit Summary Date of Service: 03/24/18 Chief Complaint: [] Suicidal ideation diabetes self-inflicted left wrist laceration. History of Present Illness: The patient is a 37 F [] history of depression diabetes on metformin she argued with her mother this dispute intensified for the patient inflected a very superficial laceration to the left wrist and police and paramedics were called and she was brought to the hospital on instructions of counseling center, she has no other complaints she reports her blood sugars are running 200-300 she is taking all her medications Physical Examination: [] Is awake and alert her vital signs are within normal range indicates she argued with the mother this intensified to where she felt the need to self-inflicted left wrist laceration counseling center struck the police to bring the hospital HEENT chest abdomen unremarkable upper lower extremities unremarkable he is a very superficial laceration to the left wrist does not break the skin it is more of an abrasion hand functions normal she indicates all of her shots are up-to-date she is other complaints moving all 4 extremities she is depressed moving all 4 extremities no psychomotor agitation or delirium Test Results: [] Emergency Department Course and Treatment: [] labs are obtained tetanus be updated wound care unless the counseling center to see her for final disposition Treatment Plan: [] Disposition: [] Counseling center Impression: [] Patient suicidal ideation, superficial left wrist laceration self -inflicted history of diabetes and depression This note was generated with [employer] dictation software. It may contain incorrect words, spelling, and punctuation that were not noted in review of the chart prior to signing ED Disposition - Plan for ED Patient: Chief Complaint: Suicidal Referrals: Lorelei Stratton NP-C [Primary Care Provider] -
[2018-03-24 16:21] LABS: Absolute Lymphocyte Count 2.43 X10^3/ul (0.83-4.51); Absolute Neutrophil Count 4.9 X10^3/uL (2.0-7.7); Basophil# 0.05 X10^3/uL; Basophil% 0.6 % (0-1); Eosinophil# 0.37 X10^3/uL; Eosinophils% 4.4 % (0-5); Hematocrit 39.9 % (37-47); Hemoglobin 13.4 g/dl (12.0-15.0); Lymphocyte # 2.43 X10^3/ul (4.0); Lymphocyte % 28.9 % (19-41); Mean Corp Hgb Conc 33.6 g/gl (32-36); Mean Corpuscular Hgb 29.9 pg (27.0-32.0); Mean Corpuscular Volume 89.1 fL (81-99); Mean Platelet Vol. 10.6 fl (6.2-12.0); Monocyte# 0.65 X10^3/uL; Monocyte% 7.7 % (0-10); Neutrophil # 4.86 X10^3/uL (2.7-7.7); Neutrophil % 57.9 % (47-70); Platelet Count 267 K/mm3 (150-450); RBC Distribution Width CV 12.6 % (11.6-14.6); RBC Distribution Width SD 40.2 fl (35.1-43.9); Red Blood Count 4.48 M/mm3 (4.2-5.4); White Blood Count 8.4 K/mm3 (4.4-11.0)
[2018-03-24 16:22] LABS: POSITIVE COUNT NO; POSITIVE DIFFERENTIAL NO; POSITIVE MORPHOLOGY NO
[2018-03-24] MEDS: 0.9% Normal Saline 1,000 ML 999 ML IV (16:35)
[2018-03-24 16:38] LABS: Anion Gap 9 (5-15); BUN 12 mg/dL (7-18); BUN/Creat Ratio 13.7 RATIO (10-20); Calcium,Total 9.1 mg/dL (8.5-10.1); Chloride 106 mmol/L (98-107); Creatinine, Serum 0.87 mg/dL (0.55-1.02); EST Glomerular Filtration Rate 77 mL/min (>60); Est Glom Filt Rate - Afr Amer 93 mL/min (>60); Estimated Creatinine Clearance 78.12 ml/min; Glucose 110 mg/dL (74-106); Sodium Level 139 mmol/L (136-145)
[2018-03-24 16:50] LABS: Pregnancy, Serum, hCG Quali. NEGATIVE Negative (0-9 Nonpreg)
[2018-03-24 17:29] LABS: Amphetamine Urine VISTA NEGATIVE (<1000 ng/mL); Barbiturate Urine VISTA NEGATIVE (< 200 ng/mL); Benzodiazepine Urine VISTA NEGATIVE (< 200 ng/mL); Cocaine Urine VISTA NEGATIVE (< 300 ng/mL); Ecstacy Urine VISTA NEGATIVE (< 500 ng/mL); Methadone Urine VISTA NEGATIVE (< 300 ng/mL); PCP Urine VISTA NEGATIVE (< 25 ng/mL); THC Urine VISTA NEGATIVE (< 50 ng/mL); Vista UDS pH Range 5
--- NOTE | 2018-03-24 17:48 | NURSING ---
NANDINI, MARJORIE, CALLED. ON HER WAY TO SEE PATIENT
[2018-03-24 17:53] VITALS: PULSE 89; RESP 16; O2SAT 97
--- NOTE | 2018-03-24 18:02 | NURSING ---
NANDINI,CRISIS, HERE
[2018-03-24 19:00] VITALS: RESP 16
[2018-03-24 19:46] LABS: Bedside Glucose 161 mg/dL (70-110)
[2018-03-24 20:00] VITALS: BP 180/104; PULSE 83; RESP 18; O2SAT 95
== END 2018-03-24 20:42 ==
PROVIDERS: Emergency Provider Emergency Medicine; Family Provider Nurse Practitioner Family; PCP Nurse Practitioner Family
DX: R45.851 Suicidal ideations (principal); S61.512A Laceration without foreign body of left wrist, initial encounter; X83.8XXA Intentional self-harm by other specified means, initial encounter; Y93.9 Activity, unspecified; Y92.9 Unspecified place or not applicable; E11.9 Type 2 diabetes mellitus without complications; F32.9 Major depressive disorder, single episode, unspecified; Z79.84 Long term (current) use of oral hypoglycemic drugs; Z79.899 Other long term (current) drug therapy
CPT/HCPCS: 36415; 80048; 80307; 80320; 82962; 84703; 85025; 99285; J7030; A4216; G0480

== ENCOUNTER 2018-03-31 09:00 | Outpatient (RCR) | payer MEDICARE, MEDICAID, SELFPAY ==
--- NOTE | 2018-03-31 09:03 | BH.SGPN.GN ---
Behaviors/Verbalizations/Mental Status: []Pt alert and oriented. Casually dressed and appropriately groomed. Mood euthymic, affect congruent. Speech tone and rate WNL. Thoughts linear and logical. Motor activity appropriate. No evidence of delusions or hallucinations. Reviewed clients symptom tracker, no risk for suicidal ideation, plan, or intent as of 03/31/18. Client Response/Progress/Benefit: []Pt reported she was just released from inpatient hospital yesterday after being admitted a few days ago due to suicidal thoughts and cutting her wrist. Pt reported the trigger that led to suicidal behavior was getting in an argument with her mom. Pt shared then her mom's friend called and started to yell at pt as well. Pt reported she became overwhelmed, which resulted in the impulsive decision to harm herself. Pt reported feeling much better now and doesn't feel suicidal. Pt reported since being discharged yesterday she has been able to get along with her mom better. Pt to continue IOP level of care to improve mood stability and prevent decompensation. Narrative Note: []
--- NOTE | 2018-03-31 10:07 | BH.SGPN.GN ---
Behaviors/Verbalizations/Mental Status: []Client alert and oriented, dress disheveled, hair appeared unwashed, glasses broken. Eye contact good. Motor activity appropriate. Speech within normal limits. Affect constricted, mood depressed, irritable. Thoughts linear, logical, no signs of hallucinations or delusions. Client Response/Progress/Benefit: []Client responded well to session, participating when prompted during discussion. Client connected with the quote sharing, we doubt ourselves and then we believe we cant do it, so we dont try. Client defined failure as disappointing others. Client stated fear of failure can come from cognitive distortions, anxiety, and low self-esteem. Client agreed with peers that if one does not overcome fear of failure it can lead to increased mental health symptoms and staying stuck. Client stated fear of failure has kept client from trying new things. Client connected the activity to failures in life, sharing you cant let youre your emotions keep you from trying. Client appeared to benefit from increasing awareness of how fear of failure impacts mental health. Client seems to be progressing with pointing out times she uses negative thinking, but continues to struggle with reframing the thoughts. Client to continue IOP to prevent decompensation and increase emotional regulation skills.
--- NOTE | 2018-03-31 11:15 | BH.SGPN.GN ---
Behaviors/Verbalizations/Mental Status: []Client alert and oriented, dress disheveled, hair appeared unwashed. Eye contact good. Motor activity appropriate. Speech within normal limits. Affect constricted, mood depressed. Thoughts linear, logical, no signs of hallucinations or delusions. Client Response/Progress/Benefit: []Client responded well to session, participating when prompted. Client shared fear of failure has impacted client because Peyton used negative self-talk for so long I actually believe it. Client reported she has low self-esteem and gets down on herself when faced with new opportunities. Client was receptive to emotional support and feedback from peers on ways overcome long-term negative core beliefs. Client helped the group identify strategies to overcome fear of failure such as challenging distorted thoughts, redefining failure, and using positive self-talk. Client set a personal goal to reduce fear of failure by saying one positive to herself a day. Client appeared to benefit from gaining strategies to overcome fear of failure. Clients progress variable as she continues to struggle with utilizing internal coping skills to regulate emotions and manage interpersonal relationships. Client to continue IOP to prevent decompensation and increase mood stability.
--- NOTE | 2018-03-31 16:07 | BH.MDN ---
Multi-Disciplinary Note - Note 30-min Individual Time Started:: 12:15 Date: 03/31/18 Eye Contact:: Good Motor Activity:: Appropriate Appearance:: Disheveled Speech:: Appropriate Mood:: Depressed Affect:: Constricted Thoughts:: Linear, Logical, No evidence of hallucinations/delusions noted Time Stopped:: 12:40
--- NOTE | 2018-04-05 10:23 | BH.SGPN.GN ---
Behaviors/Verbalizations/Mental Status: []Client alert and oriented, casual dress, hygiene poor. Eye contact fair. Motor activity appropriate. Speech within normal limits. Affect constricted, mood anxious. Thoughts linear, logical, no signs of hallucinations or delusions. Client Response/Progress/Benefit: []Client responded well to session, participating when prompted. Client connected with the quote sharing I re-read all the time. Client shared that negative self-talk, depression, and trauma can keep people stuck from obtaining mental wellness. Client stated change is scary, but it is needed if one wants to improve mental health. Client identified personal changes she would like to make this week to improve her mental health such as saying affirmations daily, talking with her dad, and working on getting a job. Client shared this would improve her self-esteem, promote honesty, and give her a sense of purpose. Client identified her barriers to be negative self-talk and depression. Client appeared to benefit from identifying goals for the week and gaining awareness of her barriers. Client to continue IOP as she continues to struggle with implementing healthy coping skills to manage symptoms and improve mood.
--- NOTE | 2018-04-05 11:25 | BH.SGPN.GN ---
Behaviors/Verbalizations/Mental Status: []Client alert and oriented, dress casual, hygiene poor. Eye contact good. Motor activity appropriate. Speech within normal limits. Affect flat, mood dysthymic. Thoughts linear, logical, no signs of hallucinations or delusions. Client Response/Progress/Benefit: []Client responded well to session, taking notes and actively listening to peers. Client identified her goal for the week to be say three positives each day to increase self-esteem. Client shared her personal barriers are not believing the positives, negative self-talk, and desire. Client helped the group identify solutions to overcome her barriers such as writing out the affirmations and hanging them up, immediately replacing negative thoughts with a positive, and asking would I say this to a friend. Client appeared to benefit from identifying solutions to her barriers. Client to continue IOP to prevent decompensation and increase generalization of healthy coping skills.
--- NOTE | 2018-04-05 14:45 | BH.MDN ---
Multi-Disciplinary Note - Note 30-min Individual Time Started:: 08:29 Date: 04/05/18 Purpose of session/treatment goals addressed:: Purpose of session Eye Contact:: Good Motor Activity:: Appropriate Appearance:: Casual Speech:: Appropriate Mood:: Dysthymic Affect:: Constricted Thoughts:: Linear, No evidence of hallucinations/delusions noted Time Stopped:: 08:53
--- NOTE | 2018-04-06 09:05 | BH.SGPN.GN ---
Behaviors/Verbalizations/Mental Status: []Pt alert and oriented. Casually dressed, a bit disheveled. Mood euthymic, affect flat. Speech tone and rate WNL. Thoughts linear and logical. Motor activity appropriate. No evidence of delusions or hallucinations. Reviewed clients symptom tracker, no risk for suicidal ideation, plan, or intent as of 04/06/18. Client Response/Progress/Benefit: []Pt reported she is doing very good. Pt shared she has her kids for 2 weeks, which often results in her mood being more positive and stable. Pt reports continuing to do the same thing of watching TV with her kids and hanging out at the house. Reported her mom is being calm and easier to be around the past few days. Pt agrees to tends to do better when she has her kids then decompensates when her kids go back home. Pt reported she did not ask her mom about a family session, but stated she will ask her mom today. Pt reporting progress with mood stability and decrease in depressive symptoms. However, per pt's history pt tends to do well when she has her kids then significantly decompensates when her kids go home. Pt sustained progress could be hindered by pt not following through with strategies and skills discussed throughout group and individual sessions. Narrative Note: []
--- NOTE | 2018-04-06 10:21 | BH.SGPN.GN ---
Behaviors/Verbalizations/Mental Status: [Client mostly alert -at times appearing distracted by her own thoughts, and orient x3. She maintained inconsistent eye contact -often messing with her glasses were looking at her phone and other items in the room, appearance disheveled-client glasses broken in duct tape together, clothing ill fitting, she was containing holes, motor activity within normal limits, speech normal rate and tone, mood dysthymic, affect congruent, thoughts linear and logical, no evidence of delusions or hallucinations.] Client Response/Progress/Benefit: [Client willing to attend session and took on a mostly passive participatory role throughout; however, did well to loosen as other discussed various items related to crisis identification and escalation. Client indicated connecting with some of the personal experiences shared by fellow participants regarding how small situations may turn into potential crisis if not appropriately managed. Client indicated at times she struggles with escalating to the point of crisis as she often resorts to withdrawal or shutting down instead of utilizing appropriate coping mechanisms. Client displayed progress in her ability to identify negative consequences associated with poor distress tolerance skills and crisis management. Client benefited from discussion in which fellow participants reflected upon ways in which we may learn and grow from crisis in order to prevent future escalation. Client recommended continued IOP treatment in order to further improve consistent utilization of healthy coping mechanisms identified as well as prevent decompensation.] Narrative Note: []
--- NOTE | 2018-04-06 11:24 | BH.SGPN.GN ---
Behaviors/Verbalizations/Mental Status: [Client alert and orient x3. Fair eye contact, appearance disheveled as client wearing broken and taped glasses, ill fitting clothing, and she is containing holes, motor activity within normal limits, speech normal rate and tone, mood dysthymic, affect constricted, thoughts linear and logical, no evidence of delusions or hallucinations.] Client Response/Progress/Benefit: [Client receptive of session and appearing more engaged than previous session. She did well to identify some of her common crisis warning signs and triggers, indicating that her relationship with her mother and not being able to spend time with her children are some of her largest triggers. Client benefited from working with the group to come up with various strategies for calming themselves in the moment and preventing crisis escalation as well as creating a crisis kit filled with reminders of the various strategies identified. Client shared placing sticky notes to write positive affirmations and notes on as well as a rock to reminder her of the people that keep her grounded. CLient making progress in her ability to identify connections between materials discussed in group and her own experience with managing mental health symptoms and stressors. Client recommended continued IOP treatment to maintain stability and continue to make progress in increasing use of healthy calming skills to prevent crisis escalation.] Narrative Note: []
--- NOTE | 2018-04-07 12:32 | BH.PSA ---
Source of Information - Presenting Problems/Circumstances Problems, Referral Source, Mental Status, Client: Patient is a 37-year-old female with schizoaffective disorder bipolar type who was participating in the behavioral medicine IOP but admitted to inpatient psychiatric hospital [facility] for 5 days due to increased auditory hallucinations and suicidal ideation after discord with her parents. Pt started on Invega, which pt reports she finds to be effective. Her auditory hallucinations and suicidal thoughts have resolved. She denies current suicidal ideation, homicidal thoughts, hallucinations or symptoms consistent with psychosis. She continues to have moderate depressive symptoms but of decreased intensity. She continues to have moderate ruminative anxiety. This is a psychosocial update from pt's previous psychosocial dated 02/17/18. The only change from last psychosocial is a recent hospitalization from 03/24/18 - 03/29/18. Past Psychiatric History - Treatment Hx Most recent hospitalization:: [facility] 03/24/18 - 03/29/18 for SI and Auditory Hallucinations Diagnoses - Diagnoses Diagnosis #1:: Schioaffective Disorder bipolar type 25.0 Diagnosis #2:: Anxiety unspecified Diagnosis #3:: PTSD Diagnosis #4:: Obsessive-compulsive traits
--- NOTE | 2018-04-07 12:32 | BH.MTP ---
Master Treatment Plan - Patient Information Program Physician:: Dr. Lai Primary Therapist:: Crystal Costa [facility] - Psychiatric Diagnoses Psychiatric Diagnoses:: Schizoaffective disorder bipolar type. Anxiety unspecified. PTSD. Obsessive-compulsive traits Diagnosis Code(s):: F25.0 - Estimated LOS Estimated LOS (in weeks):: 6 Problem/Goal #1 - Problem/Goal #1 Stated Goal:: Client will increase mood stability and decrease depressive symptoms and improve mood stability due to Schzioaffective Disorder through Intensive Outpatient Program. Description of Barriers: Pt has hx of medication noncompliace, 20+ hospitalizations for SI and SA, emotional dysregulation, familial conflicts, and inconsistent use of healthy coping skills. Pt's children can be either a help to progress or a barrier due to pt's mood being dependent on whether she gets to see her children or not. Functional Impact: Pt discharged from inpatient hospitalization on 03/30/18 due to suicide attempt. Pt has been admitted to inpatient unit 4 times in the past 6 months for suicidal thoughts and suicide attempts. Pt unable to work, discord in relationships, and doesn't get out of the house very often. Pt not functioning at baseline and could use support to help maintain stability and keep pt from returning to inpatient unit. Goal Relevant Strengths/Supports: Pt is resilient and motivated to get better. Pt recently became involved in the scientology community, which seems to serve as a positive support for pt. - Objectives Objective #1 Stated Objective: Client will identify and replace 2-3 negative thinking patterns that reinforce depressive symptoms. Interventions: Through groups and individual therapy, pt will be provided with education on cognitive distortions, mistaken beliefs, and identifying and combating negative self-talk. Therapist will help pt explore connection between thoughts, feelings, and actions. Discharge Criteria: Pt will be able to identify 2-3 negative thinking patterns and be able to effectively stop, challenge, or cope with those negative thoughts. Target Date: 04/28/18 Review Date: 05/05/18 Objective #2 Stated Objective: Pt will decrease depression and winsome AEB pts score on the DSM 5 cross-cutting measure and improve pts daily functioning. Interventions: Through groups and individual therapy, pt will be provided with education on cognitive distortions, mistaken beliefs, and identifying and combating negative self-talk. Therapist will assist pt with getting back into the activities she once enjoyed as well as increasing healthy coping strategies. Discharge Criteria: Pt will have met this goal when pts score on the DSM 5 cross cutting measure for depression has been decreased and per pts report daily functioning has improved. Target Date: 04/28/18 Review Date: 05/05/18 Problem/Goal #2 - Problem/Goal #2 Stated Goal:: Client will decrease ruminating thoughts which cause anxiety. Description of Barriers: Pt has hx of medication noncompliace, 20+ hospitalizations for SI and SA, emotional dysregulation, familial conflicts, and inconsistent use of healthy coping skills. Pt's children can be either a help to progress or a barrier due to pt's mood being dependent on whether she gets to see her children or not. Functional Impact: Pt discharged from inpatient hospitalization on 03/30/18 due to suicide attempt. Pt has been admitted to inpatient unit 4 times in the past 6 months for suicidal thoughts and suicide attempts. Pt unable to work, discord in relationships, and doesn't get out of the house very often. Pt not functioning at baseline and could use support to help maintain stability and keep pt from returning to inpatient unit. Goal Relevant Strengths/Supports: Pt is resilient and motivated to get better. Pt recently became involved in the scientology community, which seems to serve as a positive support for pt. - Objectives Objective #1 Stated Objective: Client will identify 2-3 coping strategies to use when feeling overwhelmed. Interventions: Therapist will help client process triggers to increased symptoms, and then identify ways to manage these feelings and thoughts. Therapist will also work on helping client feel less isolated and understand better behaviors and escalating tendencies. Discharge Criteria: Client will have met this goal when can safely use 1-2 coping strategies when feeling overwhelmed. Target Date: 05/05/18 Review Date: 04/28/18 Objective #2 Stated Objective: Pt will decrease anxious symptoms AEB pts score on the DSM 5 cross-cutting measure improve pts daily functioning. Interventions: Through groups and individual therapy, pt will be provided education about anxietys impact on body and common physiological reaction to anxiety. Therapist will teach pt appropriate breathing techniques and build healthy coping skills to manage daily anxieties. Discharge Criteria: Pt will have met this goal when pts score on the DSM 5 cross cutting measure for anxiety has been decreased and per pts report daily functioning has improved. Target Date: 05/05/18 Review Date: 04/28/18
--- NOTE | 2018-04-08 09:06 | BH.SGPN.GN ---
Behaviors/Verbalizations/Mental Status: []Pt alert and oriented. Casually dressed, disheveled. Mood euthymic, affect congruent. Speech tone and rate WNL. Thoughts linear and logical. Motor activity appropriate. No evidence of delusions or hallucinations. Reviewed clients symptom tracker, no risk for suicidal ideation, plan, or intent as of 04/08/18. Client Response/Progress/Benefit: []Pt reported she is continuing to do well, feeling stable and moods are more positive. Pt reported she is spending time with her kids, which has a positive impact on her mood. Reported her mom is doing better which has resulted in pt not having to go to her bedroom as often to avoid being around mom. Pt reported she has plans to take her kids to a congregation picnic this weekend. Still has not followed through with goal of saying 3 positives everyday. Client progress could be hindered by pt continuing to no apply skills learned. Narrative Note: []
--- NOTE | 2018-04-08 10:23 | BH.SGPN.GN ---
Behaviors/Verbalizations/Mental Status: []Client alert and oriented, dress casual, hygiene better today as evidenced by clean hair. Eye contact good. Motor activity appropriate. Speech within normal limits. Affect flat, mood irritable, dysthymic. Thoughts linear, logical, no signs of hallucinations or delusions. Client Response/Progress/Benefit: []Client responded well to session, participating when prompted. Client stated she struggles with setting boundaries because she has low self-esteem and I get real anxious about people getting mad at me. Client reported other barriers to setting healthy boundaries such mind-reading. ~Client identified potential benefits of boundaries such not getting taken advantage of and self-care. Client helped the group discuss the different types of boundaries, porous, rigid, and flexible as well as the pros and cons to each. Client identified using porous boundaries as client shared I suck at setting boundaries. Client shared this leads to increased isolation and depression as client does not verbalize her needs. Client appeared to benefit from learning how boundaries impact mental health and identifying her boundary type. Client to continue IOP as she continues to report lack of implementation of healthy coping skills which may hinder progress.
--- NOTE | 2018-04-08 11:21 | BH.SGPN.GN ---
Behaviors/Verbalizations/Mental Status: []Client alert and oriented, dress casual, new glasses on. Eye contact good. Motor activity appropriate. Speech within normal limits. Affect flat, mood irritable, dysthymic. Thoughts linear, logical, no signs of hallucinations or delusions. Client Response/Progress/Benefit: []Client responded well to session, but appeared to have low insight to her boundaries as client claimed having porous boundaries in second group and then flexible in third. Client created a visual representation of her current boundaries, sharing I have lots of protections and I dont let people in if theyve screwed me over. Client has mentioned in previous group session that she tends to isolate, which may also demonstrate rigid emotional boundaries. Client took notes as the group identified strategies to help set healthy boundaries. Client identified a daily goal to help client increase boundary setting which as to say two positives to herself a day. Client appeared to benefit from learning how to set healthy boundaries. Client to continue IOP as she continues to struggle with mood stability and applying emotional regulation skills.
--- NOTE | 2018-04-08 11:36 | PCM.HP.BLA ---
History and Physical This is an update to the history and physical of February 11, 2018 Identifying information Patient is a 37-year-old female with history of schizoaffective disorder who returns to the behavioral medicine [facility] status post inpatient psychiatric hospitalization. Patient has chief complaint of depression and anxiety. History has been obtained per interview with patient, discussion with staff, review of chart. Records reviewed including the history and physical and discharge summary from [facility] by Dr. Egan. Case discussed with treatment team. History of present illness Patient is a 37-year-old female with schizoaffective disorder bipolar type who was participating in the behavioral medicine [facility] but admitted to inpatient psychiatric hospital [facility] for 5 days due to increased auditory hallucinations and suicidal ideation after discord with her parents. Remeron and Latuda were discontinued during hospitalization. Patient was started on in [place]. She feels the in [place] is effective. Her auditory hallucinations and suicidal thoughts have resolved. She denies current suicidal ideation, homicidal thoughts, hallucinations or symptoms consistent with psychosis. She continues to have moderate depressive symptoms but of decreased intensity. She continues to have moderate ruminative anxiety but notes she is handling it. She is enjoying time with her 2 children who are visiting for 2 weeks prior to returning to school. Her daughter will be a freshman in [employer]. Her son will be in the fifth grade at [employer] She is looking forward to activities with him this week including a worship picnic. She has been sleeping from 9:30 PM until 9 AM with the assistance of trazodone and melatonin. Appetite is normal. Denies nausea vomiting or diarrhea. Compliant with medication including in [place] 6 mg daily and Prozac 40 mg daily. She is using trazodone 100 mg nightly and melatonin to assist with sleep. Further history per H&P of 02/11/2018. Past psychiatric history Patient has had more than 20 inpatient psychiatric hospitalizations. Her most recent hospitalization was at [facility] from March 24, 2018 through March 30, 2018 for increased auditory hallucinations, depression and suicidal ideation. She receives outpatient psychiatric care from [facility]. She participates in individual counseling with Edith Medley. Previous Invega Sustenna was effective. Substance use history Reports history of snorting pills more than 1 year ago. Smokes one half pack of cigarettes and chews one half can per day. Denies ingestion of alcohol. Denies recent cannabis use. Past medical history Elevated cholesterol GERD Denies history of seizures Reports history of multiple concussions Vitamin D deficiency Elevated TSH to 4.5 noted during recent inpatient hospitalization Review of systems No fevers chills nausea vomiting chest pain dyspnea. All other systems reviewed and negative except as above Allergies-no known medical allergies Current medications Invega 6 mg nightly Prozac 40 mg daily Trazodone 100 mg nightly Melatonin nightly Propranolol 10 mg twice daily Metformin Prilosec Norvasc Hydrochlorothiazide Family medical psychiatric history Mother has history of undiagnosed mental illness Brother-bipolar disorder Developmental social history Patient is . She has a daughter age 14 and a son age 10. She lives in [place] with her biologic mother, stepfather and sister. Mental status exam Vital signs reviewed per nursing database and discussed with nursing. Alert and oriented . No acute distress. Ambulatory with normal gait and station. Appears stated age. Casually dressed and groomed. Appropriate hygiene. Cooperative with interview. Good eye contact. No psychomotor agitation or retardation. Mood depressed but improved. Affect congruent. Speech is clear and with regular rate and rhythm. Language fluent. Thought process organized. Associations logical. Thought content significant for ruminative anxiety and themes of depression. No suicidal or homicidal ideation related or detected. No symptoms consistent with psychosis noted or detected. Immediate recent and remote memory grossly intact. Attention and concentration are fair. Estimated intelligence and fund of knowledge average. Judgment and insight fair. Labs and testing TSH elevated at 4.5. Cholesterol 115 Further lab work will be obtained as needed Diagnosis Schizoaffective disorder bipolar type Anxiety unspecified PTSD Obsessive-compulsive traits Nicotine use disorder Vitamin D deficiency Plan Admit to IOP as the structured setting is necessary to prevent decompensation. Risk-benefit alternative of medications discussed with patient. Patient acknowledges understanding. Continue in [place] 6 mg daily. Continue Prozac 40 mg daily. Continue trazodone 100 mg nightly. Encouraged ongoing vitamin D supplement. Encouraged abstinence from drugs and alcohol. Follow-up with [facility] and Edith Medley. 18 minutes of Insight oriented psychotherapy provided. Patient acknowledges understanding and is in agreement with plan. Feels able to maintain safety. Agrees to seek help or emergency care if feeling unsafe to self or others.
--- NOTE | 2018-04-08 11:49 | HP.PCM_ITS ---
History and Physical This is an update to the history and physical of February 11, 2018 Identifying information Patient is a 37-year-old female with history of schizoaffective disorder who returns to the behavioral medicine [facility] status post inpatient psychiatric hospitalization. Patient has chief complaint of depression and anxiety. History has been obtained per interview with patient, discussion with staff, review of chart. Records reviewed including the history and physical and discharge summary from [facility] by Dr. Egan. Case discussed with treatment team. History of present illness Patient is a 37-year-old female with schizoaffective disorder bipolar type who was participating in the behavioral medicine [facility] but admitted to inpatient psychiatric hospital [facility] for 5 days due to increased auditory hallucinations and suicidal ideation after discord with her parents. Remeron and Latuda were discontinued during hospitalization. Patient was started on in [place]. She feels the in [place] is effective. Her auditory hallucinations and suicidal thoughts have resolved. She denies current suicidal ideation, homicidal thoughts, hallucinations or symptoms consistent with psychosis. She continues to have moderate depressive symptoms but of decreased intensity. She continues to have moderate ruminative anxiety but notes she is handling it. She is enjoying time with her 2 children who are visiting for 2 weeks prior to returning to school. Her daughter will be a freshman in [employer] school. Her son will be in the fifth grade at [employer]. She is looking forward to activities with him this week including a synagogue picnic. She has been sleeping from 9:30 PM until 9 AM with the assistance of trazodone and melatonin. Appetite is normal. Denies nausea vomiting or diarrhea. Compliant with medication including in [place] 6 mg daily and Prozac 40 mg daily. She is using trazodone 100 mg nightly and melatonin to assist with sleep. Further history per H&P of 02/11/2018. Past psychiatric history Patient has had more than 20 inpatient psychiatric hospitalizations. Her most recent hospitalization was at [facility] from March 24, 2018 through March 30, 2018 for increased auditory hallucinations, depression and suicidal ideation. She receives outpatient psychiatric care from [facility]. She participates in individual counseling with Edith Medley. Previous Invega Sustenna was effective. Substance use history Reports history of snorting pills more than 1 year ago. Smokes one half pack of cigarettes and chews one half can per day. Denies ingestion of alcohol. Denies recent cannabis use. Past medical history Elevated cholesterol GERD Denies history of seizures Reports history of multiple concussions Vitamin D deficiency Elevated TSH to 4.5 noted during recent inpatient hospitalization Review of systems No fevers chills nausea vomiting chest pain dyspnea. All other systems reviewed and negative except as above Allergies-no known medical allergies Current medications Invega 6 mg nightly Prozac 40 mg daily Trazodone 100 mg nightly Melatonin nightly Propranolol 10 mg twice daily Metformin Prilosec Norvasc Hydrochlorothiazide Family medical psychiatric history Mother has history of undiagnosed mental illness Brother-bipolar disorder Developmental social history Patient is . She has a daughter age 14 and a son age 10. She lives in [place] with her biologic mother, stepfather and sister. Mental status exam Vital signs reviewed per nursing database and discussed with nursing. Alert and oriented . No acute distress. Ambulatory with normal gait and station. Appears stated age. Casually dressed and groomed. Appropriate hygiene. Cooperative with interview. Good eye contact. No psychomotor agitation or retardation. Mood depressed but improved. Affect congruent. Speech is clear and with regular rate and rhythm. Language fluent. Thought process organized. Associations logical. Thought content significant for ruminative anxiety and themes of depression. No suicidal or homicidal ideation related or detected. No symptoms consistent with psychosis noted or detected. Immediate recent and remote memory grossly intact. Attention and concentration are fair. Estimated intelligence and fund of knowledge average. Judgment and insight fair. Labs and testing TSH elevated at 4.5. Cholesterol 115 Further lab work will be obtained as needed Diagnosis Schizoaffective disorder bipolar type Anxiety unspecified PTSD Obsessive-compulsive traits Nicotine use disorder Vitamin D deficiency Plan Admit to IOP as the structured setting is necessary to prevent decompensation. Risk-benefit alternative of medications discussed with patient. Patient acknowledges understanding. Continue in [place] 6 mg daily. Continue Prozac 40 mg daily. Continue trazodone 100 mg nightly. Encouraged ongoing vitamin D supplement. Encouraged abstinence from drugs and alcohol. Follow-up with [facility] and Edith Medley. 18 minutes of Insight oriented psychotherapy provided. Patient acknowledges understanding and is in agreement with plan. Feels able to maintain safety. Agrees to seek help or emergency care if feeling unsafe to self or others.
--- NOTE | 2018-04-08 11:49 | BH.DR.ITP ---
Initial Treatment Plan - Patient Information Visit Information: ADMISSION DATE: EXPECTED LOS: 4-6 weeks Diagnoses:: Schizoaffective disorder bipolar type - Problems/Symptoms Problem #1:: Mood instability Symptom:: Depression, sad mood, anhedonia, recent suicidal ideation Problem #2:: Anxiety Symptom:: Rumination Problem #3:: Psychosis Symptom:: Recent auditory hallucinations
--- NOTE | 2018-04-13 09:03 | BH.SGPN.GN ---
Behaviors/Verbalizations/Mental Status: []Client alert and oriented, dress casual, client appeared showered and clean. Eye contact fair. Motor activity appropriate. Speech within normal limits. Affect constricted, mood appeared dysthymic client reporting exhaustion due to lack of sleep. Thoughts linear, logical, no signs of hallucinations or delusions. Reviewed clients symptom tracker, no risk for suicidal ideation, plan, or intent as of 04/13/18. Client Response/Progress/Benefit: []Client responded well to session, participating when prompted. Client reports feeling exhausted today as client got limited sleep last night. Client unable to identify what may have contributed to poor sleep, but with therapist elicitation, client recognized her children's stay ending with client may have an impact. Client reported her children returning home is pretty depressing and client shared she plans to sleep today. Client was encouraged by group to use healthy coping skills today to prevent client from staying stuck in a depressive maintenance cycle. Client shared in the past walking has helped her and so has cleaning. Client appeared receptive to peer feedback on relaxation techniques to help with sleep. Client appeared to benefit from identifying healthy coping skills as evidenced by her report of I feel more optimistic about the day now. Client continues to struggle with lack of implementation of healthy coping skills which may hinder her progress. Client to continue IOP to prevent decompensation.
--- NOTE | 2018-04-13 10:15 | BH.SGPN.GN ---
Behaviors/Verbalizations/Mental Status: []Pt alert and oriented, eye contact fair, casually dressed, speech monotone and tone WNL, mood dysthymic, affect constricted, thoughts linear and intact, no evidence of delusions or hallucinations. Client Response/Progress/Benefit: []Pt listened attentively to peers and at times contributed to discussion. Pt reported if don't have a support system then would feel lost. Pt recognizes when she has a support system she has someone she can rely on and someone she can talk to about how she is feeling. Pt reported healthy supports provide options and ideas, validates emotions and provides backup when needed. Pt seemed to benefit from discussion about characteristics of healthy supports. Narrative Note: []
--- NOTE | 2018-04-13 11:25 | BH.SGPN.GN ---
Behaviors/Verbalizations/Mental Status: [] Pt eye contact fair, casually dressed, motor activity appropriate, speech monotone, mood dysthymic, constricted affect, thoughts linear and intact, no evidence of delusions or hallucinations. Client Response/Progress/Benefit: [] Client contributed to discussion at times and attentive to others. Client connected with others that she finds it most helpful when her support people she demonstrates that they care about her. Client reported he does not help her when her mom makes sarcastic and rude comments towards client. Client shared his frustrating because her mom could do would be a supports person but tends to say things that upset and trigger client. Client reported she would like to focus on improving personal relationships and spiritual support. Client reported her goal is to talk to her mom about what type of support is most helpful and what does not help the client. Client shared she will also be more open with her oriental orthodox community and accepts help from others. Client to continue IOP level of care to stabilize moods, increased utilization of healthy coping, and prevent decompensation. Narrative Note: []
--- NOTE | 2018-04-19 09:01 | BH.SGPN.GN ---
Behaviors/Verbalizations/Mental Status: [Client maintained good eye contact, casually dressed - appearance disheveled, motor activity restless -client fidgeting in seat and with phone - left room momentarily, speech normal rate and tone, mood irritable, anxious, affect congruent, thoughts linear and logical, no evidence of delusions or hallucinations. Therapist reviewed clients symptom tracker to assess for intensity of mental health symptoms and identify risk for suicide. No signs of suicidal ideation, plan, or intent to date.] Client Response/Progress/Benefit: [Client responded well to session and openly discussed thoughts, feelings, and emotions with the group. She was the first participant to volunteer in processing with the group. Client indicated that he is feeling agitated this morning due to experiencing a disagreement with her mother on the previous date. Client discussed that she had attempted to stick up for myself which had been ill received by her mother who responded negatively. Client went on to discuss feeling as though she is unable to discuss her concerns in a reasonable manner with her mother and struggles to find alternative supports in which she can discuss frustrations. Client benefited from brainstorming potential alternative ways to seek emotional release so as to calm herself down prior to responding to her mother's comments. Client continues to struggle with verbal and emotional outbursts when attempting to communicate with her supports. She did well to identify prayer as a potential source of healthy coping and reflection. Client appears to have some insights regarding the ways in which her responses to stress may negatively impacts relationships with others. Client recommended continued IOP treatment in order to prevent decompensation and continue to work on regulating emotions in applying the distress tolerance skills on a consistent basis.] Narrative Note: []
--- NOTE | 2018-04-21 09:07 | BH.SGPN.GN ---
Behaviors/Verbalizations/Mental Status: [Client maintained good eye contact throughout, casually dressed - appearance disheveled - broken glasses, messy hair, motor activity was appropriate, speech normal rate and tone, thoughts linear and logical - concrete, no evidence of delusions or hallucinations. Therapist reviewed clients symptom tracker to assess for intensity of mental health symptoms and identify risk for suicide. Suicidal ideation denied, denies plan, or intent to date.] Client Response/Progress/Benefit: [Client responded well to session and remained engaged throughout. She discussed feeling happy today as her mother has returned home after recently being hospitalized. CLient went on to share that she is glad to see her mother doing well however is also fighting to remain positive after discovering that she will not be able to see her daughter for birthday due to lack of transportation. CLient shared she has also been struggling to say her daily positive affirmations and expressed that it is a lot easier to identify negative thoughts. CLient responded well and appeared to benefit from working with group on how to make this goal more attainable. She displayed progress in her ability to identify a more realistic goal of saying one positive affirmation at least 3x per week. CLient open to using a premade list of affirmations until she is better able to identify some on her own. Client recommended continued IOP tx to prevent decompensation and continue to improve application of healthy skills identified.] Narrative Note: []
--- NOTE | 2018-04-21 09:25 | BH.MDN ---
Multi-Disciplinary Note - Note 30-min Individual Time Started:: 08:32 Date: 04/21/18 Purpose of session/treatment goals addressed:: Purpose of session was to assess pt's current symptoms and stressors. Other topics included: identifying activities and services for aftercare, increasing generalization of skills and completing goals. Eye Contact:: Fair Motor Activity:: Appropriate Appearance:: Casual Speech:: Appropriate Mood:: Dysthymic Affect:: Constricted Thoughts:: Linear, Logical, No evidence of hallucinations/delusions noted Staff Interventions:: Therapist used open ended questions to elicit pt's current symptoms and stressors. Therapist reviewed homework, elicited barriers to not completing homework and goals. Therapist discussed upcoming discharge plans, eliciting what pt would find to be most beneficial to focus on prior to discharge. Therapist called diabetes support with pt and obtained referral form for pt to have PCP complete. Therapist provided pt with homework to talk with her mom about a family session and to complete goal of saying 3 positive affirmations daily. Client Response:: Pt admitted she has not been following through with her goals or trying to use the skills at home. Pt reported she continues to isolate in her room when she doesn't want to be around her mom. Pt recognizes by not using the skills she is not helping herself. Reported she knows if she continues to not follow through with applying the skills and strategies she could end back up in the hospital as history has shown. Pt reported I don't know when asked about barriers to following through with skills and goals. Pt agreed she finds Risks/Concerns:: Pt has extensive hx of suicide attempts and chronic SI. Pt often denies active SI, agreeable to call 911 or go to nearest emergency room if unable to maintain safety. Will continue to monitor pt's lethality. Progress Toward Goals/Plan:: Pt progress limited which seems to be due to pt not applying skills learned or following through with established daily goals. Pt continuing to struggle with negative thought patterns, isolative behaviors, and depressed mood. Pt has been able to challenge her passive thoughts of suicide, which does indicate some progress. Pt to continue IOP level of care to improve mood stability, improve daily functioning, and prevent decompensation. Time Stopped:: 09:00
--- NOTE | 2018-04-25 09:05 | BH.SGPN.GN ---
Behaviors/Verbalizations/Mental Status: [Client maintained fair eye contact, appearance disheveled, motor activity slowed, speech normal rate and soft tone, mood anxious, euthymic, congruent affect, thoughts linear and intact, no evidence of delusions or hallucinations.] Client Response/Progress/Benefit: [Attentive and providing increased input to discussion compared to usual baseline. Emotion for today is happy as client reports she has been able to start going on walks with her mom which she enjoys. Discussed spending time ?[facility]? as well and found this to aid in improving her mood. Client reports that she even remembered to start using positive affirmations this morning and benefitted from sharing ?I am good enough? with the group. Progress noted in client beginning to apply internal coping skills outside of tx environment. Continue treatment to prevent decompensation and improve skill application.] Narrative Note: []
--- NOTE | 2018-04-25 10:25 | BH.SGPN.GN ---
Behaviors/Verbalizations/Mental Status: []Pt eye contact good, casually dressed, motor activity appropriate, speech normal rate and tone, mood dysthymic, constricted affect, thoughts linear and intact, no evidence of delusions or hallucinations. Client Response/Progress/Benefit: []Pt passive participant AEB pt listening to others and only commenting when elicited by therapist. Pt appeared to connect with other peers comments about the importance of setting goals to provide direction and purpose. Pt identified she struggles with setting and following through with goals because of self-doubt, lack of confidence and fear of failure. Pt seemed to benefit from learning about setting SMART goals and practicing setting small goals in the moment. Narrative Note: []
--- NOTE | 2018-04-25 11:25 | BH.SGPN.GN ---
Behaviors/Verbalizations/Mental Status: []Pt eye contact good, casually dressed, motor activity appropriate, speech normal rate and tone, mood dysthymic, constricted affect, thoughts linear and intact, no evidence of delusions or hallucinations. Client Response/Progress/Benefit: []Pt listened attentively to others and contributed thoughts and ideas to discussion. Pt reported her goal is to stay one positive affirmation about herself everyday. Pt shared she has set a goal similar to this in the past, but recognizes she set the goal to 5 positives, which pt stated was too many because she hasn't been positive in a very long time. Pt shared this goal will benefit her by making her focus on positives and improve mental health. Pt reported potential obstacle could be not knowing enough positives, pt stated she can overcome this obstacle by asking therapist for help. Pt seemed to benefit from setting a SMART goal and identifying strategies that will help her overcome any potential obstacles that might occur. Pt to continue IOP level of care to stabilize moods, maintain safety, and prevent decompensation. Narrative Note: []
--- NOTE | 2018-04-26 09:02 | BH.SGPN.GN ---
Behaviors/Verbalizations/Mental Status: []Client alert and oriented, casually dressed, hygiene good. Eye contact good. Motor activity appropriate. Speech within normal limits. Affect flat, mood apathetic, dysthymic. Thoughts linear, logical, no signs of hallucinations or delusions. Reviewed clients symptom tracker, no risk for suicidal ideation, plan, or intent as of 04/26/18. Client Response/Progress/Benefit: []Client responded somewhat well to session, participating when prompted, but client sharing limited input and not expanding on her statements. Client reports feeling tired as client did not sleep well last night. When asked about her two positives and a negative client shared I dont know. With further exploration, client identified volunteering at [employer] over the weekend as a positive. Client stated a negative is she has been slacking on my goals of saying one positive affirmation a week. Client shared she does not know what barriers are keeping client from accomplishing this goal. Client was receptive to peer feedback on ideas for reaching clients goal. Client appeared to benefit from gaining positive ideas from peers that may help client achieve her goal. Clients progress is variable as she continues to report lack of implementation of internal coping skills and limited progress on personal goals. Client to continue IOP to prevent decompensation and increase use of internal coping skills to regulate emotions.
--- NOTE | 2018-04-26 10:15 | BH.SGPN.GN ---
Behaviors/Verbalizations/Mental Status: [Client maintained good eye contact, casually dressed - appropriately groomed, motor activity within normal limits, speech normal rate and tone, mood euthymic, affect flat, thoughts linear and logical - content reflective of information discussed in group, no evidence of delusions or hallucinations.] Client Response/Progress/Benefit: [Client receptive of session and engage throughout. She indicated connecting with the quote for today's topic discussing how conflict can arise from a lack of understanding between people. Client indicated that often times she and her mother fight because they have not been communicating effectively which leads client to shut down and further escalates the relationship tension. Benefited from reviewing various conflict resolution styles and the pros and cons of each. She identified often falling into the accommodating approach to conflict. Client made progress in her ability to identify ways in which she would like to improve and discussed wanting to work towards achieving a more collaborating approach to managing potential conflict situations. Commended continued IOP treatment in order to further improve gains, prevent decompensation, and increased utilization of distress tolerance skills.] Narrative Note: []
--- NOTE | 2018-04-26 11:17 | BH.SGPN.GN ---
Behaviors/Verbalizations/Mental Status: [Client maintained fair eye contact, dressed casually and comfortably, motor activity appropriate, speech normal rate and tone, mood euthymic, affect congruent, thoughts linear and logical, no evidence of delusions or hallucinations.] Client Response/Progress/Benefit: [Client responded well to session, active participant and attentive in both activity and discussion portions, despite some limit in input provided. Client did well to work with fellow participants in completing the challenge activity. Indicates using accommodating communication throughout as she went along with the suggestions of the group. Client reflected that she often does this in her own life, particularly in communicating with her mother in order to avoid conflict. Client progress noted in identifying how approaches to conflict in activity relate to her approaches to conflict in dx life. Client reflected that accommodating prevents her own needs from getting met as her opinion is not able to be heard. Client helped the group identify strategies to improve conflict resolution such as making sure to speak up on your opinion as well as listen to the other persons concerns or taking a break. Client appeared to benefit from learning various conflict resolution strategies. Client to continue IOP improve mood regulation and communication with supports, as well as prevent decompensation.] Narrative Note: []
--- NOTE | 2018-04-28 09:04 | BH.SGPN.GN ---
Behaviors/Verbalizations/Mental Status: [] Pt eye contact good, casually dressed, motor activity appropriate, speech normal rate and tone, mood euthymic, congruent affect, thoughts linear and intact, no evidence of delusions or hallucinations. Reviewed client?s symptom tracker, no signs of suicidal ideation, plan, or intent as of today. Client Response/Progress/Benefit: [] Client reported yesterday evening she helped deliver puppies which client shared made her feel accomplished and excited to learn new skill. Client shared she is also extremely happy that she finally completed her goal of saying at least one positive by herself. Client reports she used the positive characteristics handout provided to her to help her and she actually identified 9 self positives. Client shared she wrote the positives on post-it notes and put them all around her room so she can see them daily. Client reported she is also been getting along with her mom, stated there has been limited arguments in which client has had to isolate herself in her room. Client demonstrating progress as evidenced by her utilizing her healthy coping skills and following through with her goal. Client to continue IOP level of care to maintain gains, stabilize mood, and prevent decompensation. Narrative Note: []
--- NOTE | 2018-04-28 10:08 | BH.SGPN.GN ---
Behaviors/Verbalizations/Mental Status: [Client maintained fair eye contact, appearance disheveled clothing ill-fitting, motor activity appropriate, speech normal rate and tone, mood anxious, euthymic, affect congruent, thoughts linear and logical, no evidence of delusions or hallucinations.] Client Response/Progress/Benefit: [Client responded well to session, active participant. Client appeared to connect with the topic of ?taking action? as she indicated she struggles with following through on the skills she knows with help her, provided example of not saying daily affirmations despie knowing that they will improve her mood. Client identified things in her life that are holding her back from moving towards mental wellness such as limited supports, being hard on herself, past failures, finances, negative thinking, and low self-esteem. Client stated she wants to take back control over these stressors and symptoms because she does not want to keep going back to the hospital. Client appeared to benefit from identifying stressors and symptoms holding her back and participating in a symbolic activity. Client to continue IOP to continue increasing management of emotions and use of distress tolerance skills as well as to prevent decompensation.] Narrative Note: []
--- NOTE | 2018-04-28 11:15 | BH.SGPN.GN ---
Behaviors/Verbalizations/Mental Status: [Client maintained fair eye contact, appearance disheveled- clothing ill fitting, motor activity appropriate, speech normal rate and tone, mood anxious, euthymic, affect congruent, thoughts linear and logical, no evidence of delusions or hallucinations.] Client Response/Progress/Benefit: [Client responded well to session, active participant. With group support and guidance, Client created a 30-day action plan to promote emotional wellness and take back control over her mental health. Client's goal for the next 30 days is ?no more negative self-talk?. Client shared wanting to improve self-esteem and be able to be more forgiving to herself. Client reported this plan will benefit client as she wants to gain more control over her own emotions and improve ability to manage disappointments rather than resorting to crisis. Client's steps included reminding herself daily of positive affirmations and hanging these up around the room, using thought challenging, and doing a nataliia devotional. Client appeared to benefit from identifying a 30-day goal that will improve her mental wellness. Progress noted as client ability to identify barriers to mental wellness, but client continues to report ongoing challenges with implementing healthy internal coping skills and poor communication with supports. To continue IOP to promote gains and increase emotional regulation, as well as prevent decompensation.] Narrative Note: []
--- NOTE | 2018-04-28 15:24 | BH.TPR ---
Treatment Plan Review Date of Admission:: 03/31/18 Date of Treatment Plan Review:: 04/28/18
== END 2018-04-29 23:59 ==
LOC: BHIOP 09:00
PROVIDERS: Visit Provider Psychiatry & Neurology Psychiatry
DX: F25.0 Schizoaffective disorder, bipolar type (principal); F41.9 Anxiety disorder, unspecified; F43.10 Post-traumatic stress disorder, unspecified; F42.9 Obsessive-compulsive disorder, unspecified; E55.9 Vitamin D deficiency, unspecified; F17.210 Nicotine dependence, cigarettes, uncomplicated
CPT/HCPCS: H0035; 90832; 90853

== ENCOUNTER 2018-05-02 23:13 | Emergency (ER) | payer MEDICARE, MEDICAID, SELFPAY ==
[2018-05-02 23:14] VITALS: BP 161/94; PULSE 73; RESP 16; TEMP 36.7; O2SAT 93; BMI 40.1
--- NOTE | 2018-05-02 23:28 | ED.VISSUMM ---
- ER Visit Summary Date of Service: 05/02/18 Chief Complaint: [] Back pain radiating around to her abdomen History of Present Illness: The patient is a 37 F complaining of lower lumbar back pain radiating around both sides of her anterior abdomen. Started 3 days ago gradual onset and has been worsening continuous aching and stabbing pain. Current severity is mild to moderate. No home treatment other than trying different positioning. She had 4 episodes of emesis today. No diarrhea. Denies any urinary symptoms. Last menstrual period was 10 days ago and she denies . She is never had a kidney stone. She still has her gallbladder but no isolated pain to that area. Physical Examination: [] Vital signs reviewed General: Well-nourished well-developed Head: Normocephalic atraumatic Eyes: Pupils equal round and reactive to light extraocular movements intact ENT: TMs clear no hemotympanum no trauma Neck: Nontender full range of motion Cardiovascular: Regular rate rhythm no murmurs normal S1-S2 Respiratory: No distress clear to auscultation bilaterally chest nontender Abdomen: Soft nontender nondistended normal bowel sounds no masses Back: Nontender no CVA tenderness Extremities: Nontender active range of motion ?4 extremities no trauma Skin: Normal color no trauma Neuro alert oriented cranial nerves II through XII intact normal strength sensation reflexes Test Results: [] Emergency Department Course and Treatment: [] Patient given IV fluids Zofran and Toradol. Lab work obtained. Lab work shows a sodium slightly low at 135. Potassium slightly low 2.9. Chloride 95. ALT 87. AST 57. negative. Urinalysis normal. No blood noted. Lipase negative. At this time I have a low suspicion for acute intra-abdominal emergency that would warrant CT. I do not think she has bilateral kidney stones. There is no blood in her urine. Potassium is just slightly low. This should be corrected just with 40 mEq. She will continue using anti-inflammatories ibuprofen at home. She will be given a prescription for nausea medicine will follow-up as an outpatient return if she worsens. Treatment Plan: [] Disposition: [] Impression: [] Back pain Abdominal pain This note was generated with [employer] dictation software. It may contain incorrect words, spelling, and punctuation that were not noted in review of the chart prior to signing ED Disposition - Plan for ED Patient: Chief Complaint: Nausea/Vomiting Referrals: [facility],Camryn Orozco [Primary Care Provider] -
[2018-05-02] MEDS: 0.9% Normal Saline 1,000 ML 1000 ML IV (23:43)
[2018-05-02] MEDS: Ondansetron 4 MG/2 ML Vial IV (23:43)
[2018-05-02] MEDS: Ketorolac 30 MG/ML Syringe IV (23:44)
[2018-05-02 23:46] LABS: Absolute Lymphocyte Count 3.09 X10^3/ul (0.83-4.51); Absolute Neutrophil Count 5.5 X10^3/uL (2.0-7.7); Basophil# 0.05 X10^3/uL; Basophil% 0.5 % (0-1); Eosinophil# 0.43 X10^3/uL; Eosinophils% 4.3 % (0-5); Hematocrit 38.5 % (37-47); Hemoglobin 13.3 g/dl (12.0-15.0); Lymphocyte # 3.09 X10^3/ul (4.0); Lymphocyte % 30.8 % (19-41); Mean Corp Hgb Conc 34.5 g/gl (32-36); Mean Corpuscular Hgb 29.9 pg (27.0-32.0); Mean Corpuscular Volume 86.5 fL (81-99); Mean Platelet Vol. 10.8 fl (6.2-12.0); Neutrophil # 5.52 X10^3/uL (2.7-7.7); Neutrophil % 54.9 % (47-70); Platelet Count 275 K/mm3 (150-450); RBC Distribution Width CV 12.3 % (11.6-14.6); RBC Distribution Width SD 39.4 fl (35.1-43.9); Red Blood Count 4.45 M/mm3 (4.2-5.4)
[2018-05-02 23:50] LABS: POSITIVE COUNT NO; POSITIVE DIFFERENTIAL NO; POSITIVE MORPHOLOGY NO
[2018-05-02 23:59] LABS: AST(SGOT) 51 U/L (15-37); Alanine Aminotransfer ALT/SGPT 87 U/L (13-56); Albumin, Serum 4.3 g/dL (3.2-5.0); Alkaline Phosphatase 96 U/L (45-117); Anion Gap 12 (5-15); BUN 9 mg/dL (7-18); BUN/Creat Ratio 11.2 RATIO (10-20); Bilirubin, Direct 0.18 mg/dL (0.00-0.30); Calcium,Total 9.8 mg/dL (8.5-10.1); Chloride 95 mmol/L (98-107); EST Glomerular Filtration Rate 84 mL/min (>60); Est Glom Filt Rate - Afr Amer 102 mL/min (>60); Estimated Creatinine Clearance 84.96 ml/min; Globulin 3.5 g/dL (2.2-4.2); Glucose 123 mg/dL (74-106); Lipase 171 U/L (73-393); Potassium 2.9 mmol/L (3.5-5.1); Protein, Total 7.8 g/dL (6.4-8.2); Sodium Level 135 mmol/L (136-145)
[2018-05-03 00:01] LABS: Pregnancy, Serum, hCG Quali. NEGATIVE Negative (0-9 Nonpreg)
[2018-05-03 00:18] LABS: Bacteria 0 SEEN /hpf (None Seen); Mucous, Urine 0 SEEN /hpf (<or=2+); Red Blood Cells-Urine 0 SEEN /hpf (0-5); White Blood Cells 0 SEEN /hpf (0-5)
[2018-05-03 00:19] LABS: Color, Urine Yellow (Yellow); Glucose, Dipstick Normal (Normal); Ketone-Dipstick Negative (Negative); Leukocyte Esterase-Dipstick Negative /ul (Negative); Nitrite-Dipstick Negative (Negative); Occult Blood-Urine Negative /ul (Negative); Protein-Dipstick Negative (Negative); Urine Bilirubin Dipstick Negative (Negative); Urine Clarity Clear (Clear); Urine Urobilinogen Normal (Normal)
[2018-05-03 00:32] LABS: Squamous Epithelial Cells - UA 0-5 SEEN /hpf (5-10)
--- NOTE | 2018-05-03 00:37 | ED.DEP ---
ED Disposition - Plan for ED Patient: Disposition: Home or Assisted Living Chief Complaint: Nausea/Vomiting Instructions: ED Nausea Vomiting, Relieving Back Pain, Abdominal Pain Prescriptions: Ondansetron [Zofran Odt] 4 mg PO Q8H PRN PRN #10 tab PRN Reason: Nausea Ibuprofen 800 mg PO TID 5 Days #20 tab Referrals: [facility],Camryn Orozco [Primary Care Provider] -
[2018-05-03 00:45] VITALS: BP 125/59; PULSE 84; RESP 16; O2SAT 96
== END 2018-05-03 00:54 | disposition home or self-care (01) ==
PROVIDERS: Emergency Provider Emergency Medicine
DX: M54.5 Low back pain (principal); R10.9 Unspecified abdominal pain; E87.6 Hypokalemia; E66.9 Obesity, unspecified; I10 Essential (primary) hypertension; E78.00 Pure hypercholesterolemia, unspecified; F41.9 Anxiety disorder, unspecified; F31.9 Bipolar disorder, unspecified; Z79.899 Other long term (current) drug therapy; Z72.0 Tobacco use
CPT/HCPCS: 80048; 80076; 81001; 83690; 84703; 85025; 96374; 96375; 99285; A4216; J2405

== ENCOUNTER 2018-05-04 09:00 | Outpatient (RCR) | payer MEDICARE, MEDICAID, SELFPAY ==
--- NOTE | 2018-05-04 09:03 | BH.SGPN.GN ---
Behaviors/Verbalizations/Mental Status: []Client alert and oriented, dress and hygiene appeared clean. Eye contact good. Motor activity appropriate. Speech within normal limits. Affect constricted, mood euthymic. Thoughts linear, logical, no signs of hallucinations or delusions. Reviewed clients symptom tracker, no risk for suicidal ideation, plan, or intent as of 05/04/18. Client Response/Progress/Benefit: []Client responded well to session, appeared receptive to feedback from peers. Client reports feeling happy today due to client having a litter of puppies at home. Client shared her weekend was crap as client went to the emergency room due to dehydration . Client stated she is feeling better now, but she continues to struggle with following through with her mental health goals of saying positive affirmations. Client reported her biggest barrier is I've been negative for so many years I feel like a liar. Client received ideas for challenging negative thinking from peers and appeared receptive as evidenced by her grateful remarks. Client seemed to benefit from gaining support from peers and problem solving barriers in the moment. Client to discharge from [facility] tomorrow as she has maintained stability.
--- NOTE | 2018-05-04 10:20 | BH.SGPN.GN ---
Behaviors/Verbalizations/Mental Status: [] Pt eye contact good, casually dressed, motor activity appropriate, speech normal rate and tone, mood dysthymic, constricted affect, thoughts linear and intact, no evidence of delusions or hallucinations. Client Response/Progress/Benefit: [] Client tended to be quiet throughout session only contributing if therapist elicited client's thoughts and feelings. Client appeared to relate to others comments about how one reacts to stressors is what matters AEB pt nodding her head. Client reported her top stressors to include: worrying about her kids, financial struggles, and not having a car. Client shared not having a car contributes to isolative behavior since can't go many places. Client reported when she is stressed she tends to get irritable and take it out on others, which client recognizes is not helping her situation. Progress noted with client reporting she is handling stress better than she has in the past. Client to continue IOP level of care to maintain gains, stabilize mood, and prevent decompensation. Narrative Note: []
--- NOTE | 2018-05-04 11:30 | BH.SGPN.GN ---
Behaviors/Verbalizations/Mental Status: []Pt eye contact fair, casually dressed, motor activity appropriate, speech normal rate and tone, mood dysthymic, constricted affect, thoughts linear and logical, no evidence of delusions or hallucinations. Client Response/Progress/Benefit: []Client quiet, contributed if elicited by therapist. Client engaged during group activity, worked cooperatively with others. Client reported having support and communicating with others can be helpful when trying to manage stressors. Client recognized her negative thinking makes it more challenging to face her stressors, which results in nothing getting done. Client reported her goal is to reflect on her current stressors and identify which stressors she can start to get rid of or decrease. Client seemed to benefit from practicing staying calm during a stressful situation as well as group brainstorm of helpful strategies to decrease stress. Client to continue IOP level of care to maintain gains and prevent decompensation. Narrative Note: []
--- NOTE | 2018-05-05 09:07 | BH.SGPN.GN ---
Behaviors/Verbalizations/Mental Status: []Eye contact is good. Motor activity is appropriate. Appearance is casual, disheveled. Speech is Appropriate. Mood is euthymic. Affect is congruent. Thoughts are linear and logical. No evidence of psychosis. Reviewed daily check in sheet and pt denies any suicidal ideations, plan, or intent. Client Response/Progress/Benefit: []Pt was an active participant in group discussion. Emotion for today is ?excited?. Shared that this is her last day and that she feels ?great about it?. Pt reflected upon areas in which she has made progress, including reduced depression and improved communication with supports. Discussed plans to continue with affirmations and positive self-talk to maintain gains made. Reports some worry about managing emotions post-discharge and was receptive of support provided by group. Progress noted per pt report. Benefited from group support, encouragement, and feedback. Will discharge from [facility] tx on this date. Narrative Note: []
--- NOTE | 2018-05-05 10:24 | BH.SGPN.GN ---
Behaviors/Verbalizations/Mental Status: []Client alert and oriented, hygiene clean, dress casual. Eye contact fair. Motor activity appropriate. Speech within normal limits. Affect constricted, mood euthymic. Thoughts linear, logical, no signs of hallucinations or delusions. Client Response/Progress/Benefit: []client responded well to session, participating when prompted Client appeared to connect with the quote nodding to comments made by peers. Client processed with the group the different emotions associated with change and how these emotions impact how one manages change. Client also shared that depression can make a person view change as negative, even if the change is beneficial. Client stated for her change typically makes client feel anxious, sad, and frustrated which has negatively impacted how client responds to change. Client appeared to benefit from increasing awareness of how emotions impact how one manages change. Client seems to be progressing as shown by her increased mood stability over the past few weeks. Client to discharge from [facility] today.
--- NOTE | 2018-05-05 10:57 | BH.AFTERPLAN ---
Aftercare Plan - Demographics Treatment End Date:: 05/05/18 Psychiatrist:: Jeanine Lai Psychiatrist Office #:: [phone] [facility]/IOP Therapist:: Crystal Costa Therapist Phone #:: [phone] - Medications Home Medications: Home Medications Atorvastatin Calcium [Lipitor] 10 mg PO QHS 10/15/17 Fluoxetine [Prozac] 40 mg PO DAILY 10/15/17 Fluticasone 0.05% [Flonase Nasal [place]] 1 spray NASAL DAILY 10/15/17 Omeprazole [Prilosec] 20 mg PO DAILY 10/15/17 Cholecalciferol (Vitamin D3) [Vitamin D3] 2,000 unit PO DAILY 11/10/17 Ferrous Sulfate 325 mg PO BIDCM 11/10/17 Lisinopril 20 mg PO DAILY 11/10/17 Metoprolol Tartrate [Lopressor (Beta Enrique)] 25 mg PO BID 11/10/17 Triamterene 37.5MG/Hctz 25MG [Dyazide (G)] 1 cap PO DAILY 11/10/17 Paliperidone [Invega] 6 mg PO DAILY 04/15/18 traZODone [Desyrel] 100 mg PO QHS 04/15/18 Benztropine [Cogentin] 1 mg PO TID 05/02/18 Melatonin [Melatonin] 3 mg PO QHS 05/02/18 Metformin HCl 250 mg PO DAILY 05/02/18 Sucralfate 1 gm PO DAILY 05/02/18 Ibuprofen 800 mg PO TID 5 Days #20 tab 05/03/18 Ondansetron [Zofran Odt] 4 mg PO Q8H PRN PRN #10 tab 05/03/18 - Plan Details Progress/Aftercare Plan Details:: You have made progress with improved mood, decreased depression and anxiety. You have shown increased motivation to apply the skills and strategies learned. You report not experiencing any suicidal thoughts or auditory hallucinations. You have been able to maintain safety and improved ability to cope with stressors. The plan is for you to follow up with your already established counselor, attend the [facility] at least 2 times per week, and follow through with primary care doctor to get set up with diabetes support group. Strategies for Success:: 1. Get out of the house; you know isolation increases her negative thought patterns and keeps you stuck from making progress. 2. Attend the [facility] at least 2 times per week - this will give you structure, support, and out of the house. 3. Continue to say your daily positives about self. 4. Follow up with counseling. 5. Communicate your thoughts and feelings with support people; no one can read your mind. 6. Continue to attend judaism and bible study for support. 7. Remind yourself of motivations to use your skills like staying stable for your kids. 8. Review IOP binder for refresher of skills. - Appointments Appointments/Referrals to Other Services:: 1. Client will call transportation to pick her up on 05/10/18 to attend the [facility] for the day. 2. Client is to return to counseling with Edith Medley at the counseling center; client is trying to figure out how to get transported to her appointments. 3. Client is scheduled to see Carola Gil for psychiatry follow up May 2018. 4. Client will provide her primary care doctor with paperwork to get set up with diabetes support group.
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
--- NOTE | 2018-05-05 11:33 | BH.SGPN.GN ---
Behaviors/Verbalizations/Mental Status: []Client alert and oriented, hygiene clean, casual dress. Eye contact good. Motor activity appropriate. Speech within normal limits. Affect constricted, mood euthymic. Thoughts linear, logical, no signs of hallucinations or delusions. Client Response/Progress/Benefit: []Client responded well to session, contributing to discussion. Client engaged in the group activity that portrayed what change can look like an feel like. Client reported the activity was frustrating at times because change never works like you want. Client identified when she went through basic training as a time when she experienced a positive change. Client helped the group create strategies to better manage change such as identifying barriers, managing emotions, and challenging negative thoughts. Client appeared to benefit from identifying times when change was positive. Progress noted in clients increased mood stability and report of improved mood. Client to discharge from [facility].
--- NOTE | 2018-05-06 09:04 | BH.DS_ITS ---
Discharge Summary - Demographics Date of Admission:: 03/31/18 Discharge Date: 05/05/18 Presenting Problems at Admission:: Patient is a 37-year-old female with schizoaffective disorder bipolar type who was participating in the behavioral medicine [facility] but admitted to inpatient psychiatric hospital [facility] for 5 days due to increased auditory hallucinations and suicidal ideation after discord with her parents. At admission pt continued to have moderate depressive symptoms but of decreased intensity. She continued to have moderate ruminative anxiety. Discharge Diagnoses:: Schizoaffective disorder bipolar type. Anxiety unspecified. PTSD. Obsessive-compulsive traits. Nicotine use disorder Reason for Discharge:: Pt has made signficiant progress on treatment goals and no longer meets medical necessity for IOP level of care. - Treatment Progress During Treatment & Response: Pt has made progress with improved mood stability AEB pt's scores on the DSM cross-cutting measure at discharge. For depression scale pt scored a 4 out of 8 for depression at intake and at discharge pt scored a 2 out of 8, which demonstrates reduction in depressive symptoms. For winsome scale pt scored a 3 out of 6 at intake and at discharged scored a 1 out of 6 which demonstrates a reduction in manic symptoms. Pt has shown increased motivation to apply the skills and strategies learned. Pt reports continuing to not experiencing any suicidal thoughts or auditory hallucinations. Pt has been able to maintain safety and improved ability to cope with stressors. Pt responded to treatment with being engaged during group activities, but contributing very little to discussion. Pt initially struggled with applying skills and strategies learned in group, however towards the end she showed increased motivation and generalizatin. Issues Still to be Addressed:: Pt could benefit from continued reinforcement of skills. Pt often struggles with following through on goals and using skills, so could benefit from problem solving ways to increase application of skills. Pt benefits from structure and routine as well as identifying activities and support groups can attend to provide that structure and get pt out of the house. Pt lastly could benefit from family therapy with her mom given interpersonal relationships have been a trigger for suicidal behavior multiple times in pt's history. Discharge Recommendations/Instructions:: It is recommended pt follow up with outpatient counselor Edith Medley for continued counseling. Pt to follow up with Antonietta Gil for medication management. Pt encouraged to attend the [facility] at least 2 times a week for continued support and reinforcement of healthy skills. Discharge Handout: Complete Discharge Handout with client on aftercare options and continuity of care.
== END 2018-05-05 15:41 | disposition home or self-care (01) ==
LOC: BHIOP 09:00
PROVIDERS: Visit Provider Psychiatry & Neurology Psychiatry
DX: F25.0 Schizoaffective disorder, bipolar type (principal); F41.9 Anxiety disorder, unspecified; F43.10 Post-traumatic stress disorder, unspecified; F42.9 Obsessive-compulsive disorder, unspecified; E55.9 Vitamin D deficiency, unspecified; F17.210 Nicotine dependence, cigarettes, uncomplicated
CPT/HCPCS: H0035; 90832; 90853

== ENCOUNTER 2018-07-20 21:31 | Emergency (ER) | payer MEDICARE, MEDICAID, SELFPAY ==
[2018-07-20 21:33] VITALS: BP 164/111; PULSE 82; RESP 16; TEMP 37.1; O2SAT 95; BMI 41.5
[2018-07-20 21:53] LABS: Absolute Lymphocyte Count 2.81 X10^3/ul (0.83-4.51); Absolute Neutrophil Count 4.8 X10^3/uL (2.0-7.7); Basophil# 0.05 X10^3/uL; Basophil% 0.6 % (0-1); Eosinophil# 0.32 X10^3/uL; Eosinophils% 3.6 % (0-5); Hematocrit 40.6 % (37-47); Hemoglobin 14.2 g/dl (12.0-15.0); Lymphocyte # 2.81 X10^3/ul (4.0); Mean Corpuscular Hgb 30.3 pg (27.0-32.0); Mean Corpuscular Volume 86.8 fL (81-99); Mean Platelet Vol. 11.1 fl (6.2-12.0); Neutrophil # 4.83 X10^3/uL (2.7-7.7); Neutrophil % 55.1 % (47-70); Platelet Count 276 K/mm3 (150-450); RBC Distribution Width CV 12.1 % (11.6-14.6); RBC Distribution Width SD 37.9 fl (35.1-43.9); Red Blood Count 4.68 M/mm3 (4.2-5.4); White Blood Count 8.8 K/mm3 (4.4-11.0)
[2018-07-20 21:55] LABS: POSITIVE COUNT NO; POSITIVE DIFFERENTIAL NO; POSITIVE MORPHOLOGY NO
--- NOTE | 2018-07-20 21:55 | ED.VISSUMM ---
- ER Visit Summary Date of Service: 07/20/18 Chief Complaint: Depressed and suicidal ideation History of Present Illness: The patient is a 37 F history of depression, bipolar, schizophrenia and anxiety. Patient [facility]. States the last several days she has been hearing voices. She has had this happen before. They are telling her she is worthless and she should harm herself. She did cut her wrist on the left. This is a very minor injury. She denies any overdose but has overdosed in the past. She has had prior suicidal ideations and hallucinations and was admitted earlier this year. Physical Examination: Well-appearing middle-aged female. Vital signs are stable. She is afebrile. HEENT exam unremarkable. No smell of alcohol. No signs of trauma. No toxidrome. Neck nontender no signs of trauma. Lungs clear to auscultation bilaterally. Heart regular rhythm no murmur. Rate about 80. Chest wall nontender. Abdomen soft and nontender. Pelvic girdle intact. Patient moving all 4 extremities. They are neurovascularly intact. She is a superficial abrasion to the palmar aspect of her left wrist. This does not need to be repaired. Left hand is neurovascularly intact. Neurologically she is awake and alert with no focal motor deficits. Test Results: ED mental health evaluation. CBC normal. BMP unremarkable. Serum test negative. Tox screen negative. Alcohol negative. On repeat exam patient is doing well at 20-25. Emergency Department Course and Treatment: Patient will undergo any mental health labs. And have crisis evaluation. Final disposition will be determined after crisis evaluation. Treatment Plan: Patient will be turned over to crisis evaluation and the overnight physician for final disposition. Disposition: [] Impression: Acute exacerbation of underlying psychiatric illness Auditory hallucinations with suicidal ideation History of bipolar, schizophrenia and depression with prior suicide attempts. This note was generated with [employer] dictation software. It may contain incorrect words, spelling, and punctuation that were not noted in review of the chart prior to signing ED Disposition - Plan for ED Patient: Chief Complaint: Suicidal Referrals: Camryn Bautista [Primary Care Provider] -
--- NOTE | 2018-07-20 21:58 | ED.DCSUM_ITS ---
- ER Visit Summary Date of Service: 07/20/18 Chief Complaint: Depressed and suicidal ideation History of Present Illness: The patient is a 37 F history of depression, bipolar, schizophrenia and anxiety. Patient is under the care of the [facility]. States the last several days she has been hearing voices. She has had this happen before. They are telling her she is worthless and she should harm herself. She did cut her wrist on the left. This is a very minor injury. She denies any overdose but has overdosed in the past. She has had prior suicidal ideations and hallucinations and was admitted earlier this year. Physical Examination: Well-appearing middle-aged female. Vital signs are stable. She is afebrile. HEENT exam unremarkable. No smell of alcohol. No signs of trauma. No toxidrome. Neck nontender no signs of trauma. Lungs clear to auscultation bilaterally. Heart regular rhythm no murmur. Rate about 80. Chest wall nontender. Abdomen soft and nontender. Pelvic girdle intact. Patient moving all 4 extremities. They are neurovascularly intact. She is a superficial abrasion to the palmar aspect of her left wrist. This does not need to be repaired. Left hand is neurovascularly intact. Neurologically she is awake and alert with no focal motor deficits. Test Results: ED mental health evaluation. CBC normal. BMP unremarkable. Serum test negative. Tox screen negative. Alcohol negative. On repeat exam patient is doing well at 20-25. Emergency Department Course and Treatment: Patient will undergo any mental health labs. And have crisis evaluation. Final disposition will be determined after crisis evaluation. Treatment Plan: Patient will be turned over to crisis evaluation and the overnight physician for final disposition. Disposition: [] Impression: Acute exacerbation of underlying psychiatric illness Auditory hallucinations with suicidal ideation History of bipolar, schizophrenia and depression with prior suicide attempts. This note was generated with [employer] dictation software. It may contain incorrect words, spelling, and punctuation that were not noted in review of the chart prior to signing ED Disposition - Plan for ED Patient: Chief Complaint: Suicidal Referrals: Camryn Bautista [Primary Care Provider] -
[2018-07-20 22:04] LABS: Anion Gap 6 (5-15); BUN 6 mg/dL (7-18); BUN/Creat Ratio 8.5 RATIO (10-20); Calcium,Total 8.7 mg/dL (8.5-10.1); Chloride 104 mmol/L (98-107); EST Glomerular Filtration Rate 98 mL/min (>60); Est Glom Filt Rate - Afr Amer 119 mL/min (>60); Estimated Creatinine Clearance 97.09 ml/min; Glucose 115 mg/dL (74-106); Potassium 3.4 mmol/L (3.5-5.1); Sodium Level 136 mmol/L (136-145)
[2018-07-20 22:05] LABS: Alcohol, Blood (Medical)-Serum < 3.0 mg/dL
[2018-07-20 22:12] LABS: Amphetamine Urine VISTA NEGATIVE (<1000 ng/mL); Barbiturate Urine VISTA NEGATIVE (< 200 ng/mL); Benzodiazepine Urine VISTA NEGATIVE (< 200 ng/mL); Cocaine Urine VISTA NEGATIVE (< 300 ng/mL); Ecstacy Urine VISTA NEGATIVE (< 500 ng/mL); Methadone Urine VISTA NEGATIVE (< 300 ng/mL); PCP Urine VISTA NEGATIVE (< 25 ng/mL); THC Urine VISTA NEGATIVE (< 50 ng/mL); Vista UDS pH Range 6
[2018-07-20 22:12] LABS: Pregnancy, Serum, hCG Quali. NEGATIVE Negative (0-9 Nonpreg)
--- NOTE | 2018-07-20 22:26 | NURSING ---
CALLED CRISIS TO LET [facility] KNOW PATIENT IS MEDICALLY CLEARED
[2018-07-20 22:54] VITALS: PULSE 88; RESP 16; O2SAT 97
[2018-07-20 23:10] VITALS: RESP 16; O2SAT 98
--- NOTE | 2018-07-21 00:45 | NURSING ---
ACCEPTED AT [facility] BY DR. LOCKETT 310 BED REPORT
--- NOTE | 2018-07-21 00:52 | ED.DCSUM_ITS ---
- ER Visit Summary Date of Service: 07/21/18 Chief Complaint: [Addendum to initial dictation by Dr. Silas Cisneros] History of Present Illness: The patient is a 37 F [presented with depression and suicidal ideation. Care of patient turned over to me awaiting evaluation by crisis. After crisis evaluated patient was deemed that she would benefit from hospitalization. Patient was accepted at [facility] for further treatment.] Physical Examination: [] Test Results: [] Emergency Department Course and Treatment: [] Treatment Plan: [] Disposition: [Transfer to psychiatric facility] Impression: [Depression Suicidal ideation] This note was generated with [employer] dictation software. It may contain incorrect words, spelling, and punctuation that were not noted in review of the chart prior to signing ED Disposition - Plan for ED Patient: Chief Complaint: Suicidal Referrals: Camryn Bautista [Primary Care Provider] -
[2018-07-21 03:23] VITALS: BP 152/95; PULSE 84; RESP 16; O2SAT 98
[2018-07-21 04:14] VITALS: RESP 16
[2018-07-21 10:20] VITALS: BP 143/80; PULSE 72; RESP 16; O2SAT 99
== END 2018-07-21 10:21 ==
LOC: ED 22:31
PROVIDERS: Emergency Provider Emergency Medicine
DX: F31.9 Bipolar disorder, unspecified (principal); F20.9 Schizophrenia, unspecified; R45.851 Suicidal ideations; F41.9 Anxiety disorder, unspecified; Z91.5 Personal history of self-harm; E11.9 Type 2 diabetes mellitus without complications; Z79.84 Long term (current) use of oral hypoglycemic drugs; Z79.899 Other long term (current) drug therapy; Z72.0 Tobacco use
CPT/HCPCS: 80048; 80307; 80320; 84703; 85025; 99284; G0480

== ENCOUNTER 2018-11-12 17:44 | Emergency (ER) | payer MEDICARE, MEDICAID, SELFPAY ==
[2018-11-12 17:46] VITALS: BP 201/107; PULSE 67; RESP 19; TEMP 36.9; O2SAT 99; BMI 36.6
--- NOTE | 2018-11-12 17:59 | ED.RN ---
PT ON PERIOD
[2018-11-12] MEDS: cloNIDine HCl 0.1 MG Tablet PO ×2 (18:13→21:05)
[2018-11-12 18:29] LABS: Absolute Lymphocyte Count 2.76 X10^3/ul (0.83-4.51); Absolute Neutrophil Count 6.1 X10^3/uL (2.0-7.7); Basophil# 0.02 X10^3/uL; Basophil% 0.2 % (0-1); Eosinophil# 0.48 X10^3/uL; Eosinophils% 4.7 % (0-5); Hematocrit 38.1 % (37-47); Hemoglobin 12.9 g/dl (12.0-15.0); Lymphocyte # 2.76 X10^3/ul (4.0); Lymphocyte % 27.1 % (19-41); Mean Corp Hgb Conc 33.9 g/gl (32-36); Mean Corpuscular Hgb 29.4 pg (27.0-32.0); Mean Corpuscular Volume 86.8 fL (81-99); Monocyte# 0.73 X10^3/uL; Monocyte% 7.2 % (0-10); Neutrophil # 6.13 X10^3/uL (2.7-7.7); Neutrophil % 60.3 % (47-70); Platelet Count 408 K/mm3 (150-450); RBC Distribution Width CV 12.3 % (11.6-14.6); RBC Distribution Width SD 39.4 fl (35.1-43.9); Red Blood Count 4.39 M/mm3 (4.2-5.4); White Blood Count 10.2 K/mm3 (4.4-11.0)
[2018-11-12 18:30] LABS: POSITIVE COUNT NO; POSITIVE DIFFERENTIAL NO; POSITIVE MORPHOLOGY NO
[2018-11-12 18:38] LABS: Alcohol, Blood (Medical)-Serum < 3.0 mg/dL
[2018-11-12 18:42] LABS: ALB/GLOB Ratio 1.2 RATIO (0.9-2.4); AST(SGOT) 23 U/L (15-37); Alanine Aminotransfer ALT/SGPT 27 U/L (13-56); Albumin, Serum 3.9 g/dL (3.2-5.0); Alkaline Phosphatase 90 U/L (45-117); Anion Gap 2 (5-15); BUN 5 mg/dL (7-18); BUN/Creat Ratio 7.4 RATIO (10-20); Calcium,Total 8.9 mg/dL (8.5-10.1); Chloride 108 mmol/L (98-107); Creatinine, Serum 0.68 mg/dL (0.55-1.02); EST Glomerular Filtration Rate 102 mL/min (>60); Est Glom Filt Rate - Afr Amer 124 mL/min (>60); Estimated Creatinine Clearance 98.96 ml/min; Globulin 3.2 g/dL (2.2-4.2); Glucose 92 mg/dL (74-106); Potassium 3.3 mmol/L (3.5-5.1); Protein, Total 7.1 g/dL (6.4-8.2); Sodium Level 139 mmol/L (136-145)
[2018-11-12 18:45] VITALS: BP 161/99
[2018-11-12 18:47] LABS: Pregnancy, Serum, hCG Quali. NEGATIVE Negative (0-9 Nonpreg)
[2018-11-12 18:47] LABS: Amphetamine Urine VISTA NEGATIVE (<1000 ng/mL); Barbiturate Urine VISTA NEGATIVE (< 200 ng/mL); Benzodiazepine Urine VISTA NEGATIVE (< 200 ng/mL); Cocaine Urine VISTA NEGATIVE (< 300 ng/mL); Ecstacy Urine VISTA POSITIVE (< 500 ng/mL); Methadone Urine VISTA NEGATIVE (< 300 ng/mL); PCP Urine VISTA NEGATIVE (< 25 ng/mL); THC Urine VISTA NEGATIVE (< 50 ng/mL); Vista UDS pH Range 6
--- NOTE | 2018-11-12 19:08 | ED.VISSUMM ---
- ER Visit Summary Date of Service: 11/12/18 Chief Complaint: Hearing voices History of Present Illness: The patient is a 38 F who complains of hearing voices. They are telling her to harm herself. Patient has a history of schizophrenia and bipolar disorder. She did not take her meds today because she said she did not remember. She denies any other complaints. Physical Examination: Afebrile and vital signs unremarkable except for a blood pressure of 201/107. Patient reports abnormal thought content, hallucinations, and command hallucinations. Depressed mood. Heart regular rate and rhythm. Lungs clear. Abdomen soft. Moves all extremities. Test Results: Labs unremarkable. test negative. Tox screen positive for meth/MDMA. Alcohol negative. Emergency Department Course and Treatment: Patient had psychiatric precautions. She received her home medications here. She was given a dose of clonidine. Crisis evaluated the patient and they are working on placement. Treatment Plan: As above Disposition: Transfer pending Impression: 1. Psychosis 2. Hypertension This note was generated with [employer] dictation software. It may contain incorrect words, spelling, and punctuation that were not noted in review of the chart prior to signing ED Disposition - Plan for ED Patient: Referrals: Care Physician,No Primary [Primary Care Provider] -
[2018-11-12 19:11] VITALS: RESP 18
--- NOTE | 2018-11-12 19:14 | ED.RN ---
PT DENIES SUICIDAL IDEATION TO THIS NURSE. STATES VOICES ARE JUST TELLING HER TO HARM HERSELF, NOT ATTEMPT SUICIDE. PT DENIES ANY THOUGHTS OF TAKING OWN LIFE OR PLAN. DR FRITZ STATES PT DOES NOT NEED SITTER.
[2018-11-12 20:00] VITALS: RESP 15
[2018-11-12 21:01] VITALS: BP 185/103; PULSE 80; RESP 16; O2SAT 98
--- NOTE | 2018-11-12 21:10 | NURSING ---
FLOYD NEGRON CANT P/U TILL 9AM
--- NOTE | 2018-11-12 22:13 | ED.RN ---
THIS NURSE CALLED [phone] AND SPOKE TO SOMEONE ON 1600 UNIT, I EXPLAINED THAT PT WILL NOT HAVE TRANSPORTATION UNTIL 0900 TOMORROW MORNING FOR PLACEMENT TO [facility].
[2018-11-12 22:51] VITALS: BP 150/94
[2018-11-12] MEDS: traZODone 100 MG Tablet PO (23:08)
[2018-11-12] MEDS: buPROPion (SR) 150 MG Tablet.SA PO (23:08)
[2018-11-13] VITALS (8 sets, daily range): BP systolic 140–160; BP diastolic 80–97; PULSE 81–110; RESP 13–18; O2SAT 98–99
[2018-11-13] MEDS: Acetaminophen 500 MG Tablet 1000 MG PO ×2 (00:08→06:17)
== END 2018-11-13 09:17 | disposition home or self-care (01) ==
PROVIDERS: Emergency Provider Emergency Medicine
DX: F20.9 Schizophrenia, unspecified (principal); F31.9 Bipolar disorder, unspecified; I10 Essential (primary) hypertension; Z72.0 Tobacco use
CPT/HCPCS: 80053; 80307; 80320; 84703; 85025; 99285; G0480

== ENCOUNTER 2018-12-08 12:57 | Emergency (ER) | payer MEDICARE, MEDICAID, SELFPAY ==
[2018-12-08 12:58] VITALS: BP 160/108; PULSE 88; RESP 18; TEMP 37; O2SAT 97; BMI 34.1
[2018-12-08 13:03] VITALS: BP 173/114; PULSE 98; RESP 18; O2SAT 98
--- NOTE | 2018-12-08 13:12 | ED.VISSUMM ---
- ER Visit Summary Date of Service: 12/08/18 Chief Complaint: Nausea, vomiting, and abdominal pain History of Present Illness: The patient is a 38 F who presents with nausea, vomiting, and abdominal pain that has been getting worse over the past 3 days. Patient states she has been out of her metformin for the last couple months. Patient admits to some polyuria and polydipsia. Patient denies any hematemesis or coffee-ground emesis. Patient states her emesis is just stomach contents. Patient denies any melena or hematochezia. Patient does admit to a headache. Physical Examination: Vital signs are stable. Patient is afebrile. Patient is in no acute distress. Oral mucosa is pink and moist. Neck is supple. Trachea is midline. There is no JVD noted. Heart was regular rate and rhythm. Lungs are clear and equal bilateral. Abdomen is soft. Bowel sounds are normal. There is some mild mid abdominal tenderness. There is no rebound or guarding noted. Cranial nerves II through XII are intact. There are no focal motor or sensory deficits noted. Test Results: CBC, comprehensive metabolic profile, urinalysis, and serum ketones were obtained and were all essentially within normal limits. Emergency Department Course and Treatment: Patient was given fluids here. Patient developed a headache here in the emergency department. Patient was given a dose of Tylenol. Patient was instructed to follow-up with her primary care physician in 5-7 days. Patient understood and was agreeable with the plan. All questions were answered. Disposition: Discharge home Impression: Abdominal pain This note was generated with [employer] dictation software. It may contain incorrect words, spelling, and punctuation that were not noted in review of the chart prior to signing ED Disposition - Plan for ED Patient: Disposition: Home or Assisted Living Diagnosis: Abdominal pain Instructions: ED Nausea Vomiting Referrals: Care Physician,No Primary [Primary Care Provider] - Janelle Peacock MD [STAFF PHYSICIAN] - 3-5 Days
[2018-12-08 13:43] LABS: Absolute Neutrophil Count 5.2 X10^3/uL (2.0-7.7); Basophil# 0.06 X10^3/uL; Basophil% 0.6 % (0-1); Eosinophil# 0.54 X10^3/uL; Eosinophils% 5.7 % (0-5); Hematocrit 41.4 % (37-47); Hemoglobin 14.2 g/dl (12.0-15.0); Lymphocyte % 29.7 % (19-41); Mean Corp Hgb Conc 34.3 g/gl (32-36); Mean Corpuscular Hgb 29.3 pg (27.0-32.0); Mean Corpuscular Volume 85.5 fL (81-99); Mean Platelet Vol. 10.6 fl (6.2-12.0); Monocyte# 0.84 X10^3/uL; Monocyte% 8.9 % (0-10); Neutrophil # 5.19 X10^3/uL (2.7-7.7); POSITIVE COUNT NO; POSITIVE DIFFERENTIAL NO; POSITIVE MORPHOLOGY NO; Platelet Count 354 K/mm3 (150-450); RBC Distribution Width SD 40.5 fl (35.1-43.9); Red Blood Count 4.84 M/mm3 (4.2-5.4); White Blood Count 9.4 K/mm3 (4.4-11.0)
[2018-12-08 13:59] LABS: ALB/GLOB Ratio 1.3 RATIO (0.9-2.4); AST(SGOT) 20 U/L (15-37); Alanine Aminotransfer ALT/SGPT 35 U/L (13-56); Albumin, Serum 4.2 g/dL (3.2-5.0); Alkaline Phosphatase 88 U/L (45-117); Anion Gap 6 (5-15); BUN 12 mg/dL (7-18); BUN/Creat Ratio 12.9 RATIO (10-20); Calcium,Total 9.1 mg/dL (8.5-10.1); Chloride 105 mmol/L (98-107); Creatinine, Serum 0.93 mg/dL (0.55-1.02); EST Glomerular Filtration Rate 71 mL/min (>60); Est Glom Filt Rate - Afr Amer 86 mL/min (>60); Estimated Creatinine Clearance 72.36 ml/min; Globulin 3.2 g/dL (2.2-4.2); Glucose 104 mg/dL (74-106); Lipase 111 U/L (73-393); Potassium 3.4 mmol/L (3.5-5.1); Protein, Total 7.4 g/dL (6.4-8.2); Sodium Level 138 mmol/L (136-145)
[2018-12-08] MEDS: Ondansetron 4 MG/2 ML Vial IV (14:14)
[2018-12-08] MEDS: 0.9% Normal Saline 1,000 ML 1000 ML IV (14:14)
[2018-12-08 15:00] VITALS: BP 151/102; PULSE 81; RESP 16; O2SAT 99
[2018-12-08 15:35] LABS: Bacteria 0 SEEN /hpf (None Seen); Mucous, Urine 0 SEEN /hpf (<or=2+); Red Blood Cells-Urine 0 SEEN /hpf (0-5)
[2018-12-08 15:37] LABS: Color, Urine Yellow (Yellow); Glucose, Dipstick Normal (Normal); Ketone-Dipstick 5 mg/dl (Negative); Leukocyte Esterase-Dipstick Negative /ul (Negative); Nitrite-Dipstick Negative (Negative); Occult Blood-Urine Negative /ul (Negative); Protein-Dipstick Negative (Negative); Urine Bilirubin Dipstick Negative (Negative); Urine Clarity Clear (Clear); Urine Urobilinogen Normal (Normal)
[2018-12-08] MEDS: Acetaminophen 500 MG Tablet 1000 MG PO (15:44)
[2018-12-08 15:49] LABS: Squamous Epithelial Cells - UA 0-5 SEEN /hpf (5-10); White Blood Cells 0-5 SEEN /hpf (0-5)
[2018-12-08 16:12] VITALS: BP 181/102; PULSE 78; RESP 16; O2SAT 99
== END 2018-12-08 16:19 | disposition home or self-care (01) ==
PROVIDERS: Emergency Provider Emergency Medicine
DX: R10.9 Unspecified abdominal pain (principal); R11.2 Nausea with vomiting, unspecified; E11.9 Type 2 diabetes mellitus without complications; I10 Essential (primary) hypertension; F31.9 Bipolar disorder, unspecified; F20.9 Schizophrenia, unspecified; Z79.84 Long term (current) use of oral hypoglycemic drugs; Z72.0 Tobacco use
CPT/HCPCS: 80053; 81001; 82009; 83690; 85025; 96361; 96374; 99284; J7030; A4216; J2405

== ENCOUNTER 2018-12-11 22:02 | Emergency (ER) | payer MEDICARE, MEDICAID, SELFPAY ==
[2018-12-11 22:03] VITALS: BP 180/105; PULSE 112; PULSE 114; RESP 15; RESP 16; TEMP 36.7; O2SAT 96; O2SAT 97; BMI 31.6
--- NOTE | 2018-12-11 22:14 | RAD_ITS ---
STUDY: X-RAY CHEST REASON FOR EXAM: Female, 38 years old. Chest pain TECHNIQUE: Single AP portable view of the chest. COMPARISON: Prior study of 12/03/2017 FINDINGS: monitor worker leads are present. The lungs are clear and expanded. There is no demonstrated pleural abnormality. Normal size heart. Normal mediastinum and betito. Normal visualized pulmonary arteries. Normal visualized aortic arch and descending thoracic aorta. Normal visualized thoracic spine. Normal visualized ribs, clavicles, and shoulders. There is no demonstrated abnormality of the visualized soft tissue structures of the upper abdomen. RAD/Chest 1 View (Portable) IMPRESSION: Normal x-ray examination of the chest. Electronically Signed: Sriram Tolbert MD at 22:38 EDT , Service support ,
--- NOTE | 2018-12-11 22:15 | EKG12_ITS ---
Test Reason : [facility] Blood Pressure : / mmHG Vent. Rate : 108 BPM Atrial Rate : 108 BPM P-R Int : 178 ms QRS Dur : 100 ms QT Int : 356 ms P-R-T Axes : 024 -04 015 degrees QTc Int : 477 ms Sinus tachycardia Septal infarct , age undetermined Abnormal ECG Confirmed by FACUNDO LONGO, ODILON ([id number]), editor publications JANE MONTALVO ([id number]) on 12/13/2018 4:06:31 PM Referred By: SUZIE Confirmed By:ODILON LOREDO MD
--- NOTE | 2018-12-11 22:21 | ED.DCSUM_ITS ---
- ER Visit Summary Date of Service: 12/11/18 Chief Complaint: Suicidal gesture History of Present Illness: The patient is a 38 F who presents after taking an overdose of Seroquel tonight. Patient states she took 3 tablets of 300 mg of Seroquel tonight. Patient states she was depressed after talking to her son. Currently, the patient denies any suicidal ideations. Patient also admits to some chest pain that she describes as a heaviness. Patient states this has been present for the past 15 minutes. Patient denies any shortness of breath. Patient denies any nausea or vomiting. Patient denies any diaphoresis. Patient admits to some nausea but denies any vomiting. Physical Examination: Vital signs are stable except for an elevated blood pressure of 180/105 and a tachycardia of 112. Patient is afebrile. Patient is in no acute distress. Oral mucosa is pink and moist. Neck is supple. Trachea is midline. There is no JVD noted. Heart was regular and tachycardic. Lungs are clear and equal bilateral. Abdomen is soft. Bowel sounds are normal. There is no tenderness. There is no guarding noted. Skin is warm dry. Cranial nerves II through XII are intact. There are no focal motor or sensory deficits noted. The remaining physical exam is within normal limits. Test Results: CBC and basic metabolic profile were obtained and were essentially within normal limits. Troponin was normal. Urine tox screen was negative. Serum alcohol level was normal. EKG showed normal sinus rhythm with a rate of 108. There are no acute ST or T wave changes. This is unchanged compared to previous EKG dated 12/03/2017. Emergency Department Course and Treatment: Crisis counseling was in to evaluate the patient. They do not feel the patient is actively suicidal. Patient was able to contract for safety. Patient will follow up with the crisis counseling center as scheduled. Disposition: Discharge home Impression: Depression This note was generated with [employer] dictation software. It may contain incorrect words, spelling, and punctuation that were not noted in review of the chart prior to signing ED Disposition - Plan for ED Patient: Disposition: Home or Assisted Living Diagnosis: Depression Instructions: ED Contract, No Harm, ED Depression Referrals: Care Physician,No Primary [Primary Care Provider] -
[2018-12-11 22:22] LABS: Absolute Lymphocyte Count 2.94 X10^3/ul (0.83-4.51); Absolute Neutrophil Count 4.2 X10^3/uL (2.0-7.7); Basophil# 0.06 X10^3/uL; Basophil% 0.7 % (0-1); Eosinophil# 0.56 X10^3/uL; Eosinophils% 6.5 % (0-5); Hematocrit 38.7 % (37-47); Hemoglobin 13.4 g/dl (12.0-15.0); Lymphocyte # 2.94 X10^3/ul (4.0); Lymphocyte % 33.9 % (19-41); Mean Corp Hgb Conc 34.6 g/gl (32-36); Mean Corpuscular Hgb 29.7 pg (27.0-32.0); Mean Corpuscular Volume 85.8 fL (81-99); Mean Platelet Vol. 10.8 fl (6.2-12.0); Monocyte% 10.4 % (0-10); Neutrophil # 4.19 X10^3/uL (2.7-7.7); Neutrophil % 48.4 % (47-70); Platelet Count 328 K/mm3 (150-450); RBC Distribution Width CV 12.9 % (11.6-14.6); RBC Distribution Width SD 40.2 fl (35.1-43.9); Red Blood Count 4.51 M/mm3 (4.2-5.4); White Blood Count 8.7 K/mm3 (4.4-11.0)
[2018-12-11 22:23] LABS: POSITIVE COUNT NO; POSITIVE DIFFERENTIAL NO; POSITIVE MORPHOLOGY NO
[2018-12-11 22:30] LABS: Anion Gap 7 (5-15); BUN 7 mg/dL (7-18); BUN/Creat Ratio 8.9 RATIO (10-20); Calcium,Total 8.7 mg/dL (8.5-10.1); Chloride 105 mmol/L (98-107); Creatinine, Serum 0.78 mg/dL (0.55-1.02); EST Glomerular Filtration Rate 87 mL/min (>60); Est Glom Filt Rate - Afr Amer 105 mL/min (>60); Estimated Creatinine Clearance 86.27 ml/min; Glucose 106 mg/dL (74-106); Potassium 3.2 mmol/L (3.5-5.1); Sodium Level 139 mmol/L (136-145)
[2018-12-11 22:37] LABS: Internal QC Validated? YES +Cl - CLEAR BKGD; Pregnancy, Serum, hCG Quali. NEGATIVE Negative
[2018-12-11 22:41] LABS: Alcohol, Blood (Medical)-Serum < 3.0 mg/dL
--- NOTE | 2018-12-11 22:56 | ED.RN ---
SPOKE WITH THE [facility]. WILL COME IN SOON DONE WITH ANOTHER FACILITY
[2018-12-11 23:17] VITALS: BP 139/90; PULSE 102; RESP 20; O2SAT 98
[2018-12-12 00:02] VITALS: BP 128/99; PULSE 113; RESP 18; O2SAT 97
[2018-12-12 00:03] LABS: Amphetamine Urine VISTA NEGATIVE (<1000 ng/mL); Barbiturate Urine VISTA NEGATIVE (< 200 ng/mL); Benzodiazepine Urine VISTA NEGATIVE (< 200 ng/mL); Cocaine Urine VISTA NEGATIVE (< 300 ng/mL); Ecstacy Urine VISTA NEGATIVE (< 500 ng/mL); Methadone Urine VISTA NEGATIVE (< 300 ng/mL); PCP Urine VISTA NEGATIVE (< 25 ng/mL); THC Urine VISTA NEGATIVE (< 50 ng/mL); Vista UDS pH Range 6
[2018-12-12 01:08] VITALS: BP 137/88; PULSE 106; RESP 16; O2SAT 95
[2018-12-12 01:16] VITALS: BP 136/74; PULSE 82; RESP 20; O2SAT 99
--- NOTE | 2018-12-12 01:16 | ED.RN ---
THIS NURSE REVIEWED D/C INSTRUCTIONS WITH PT AND MOTHER. PT VERBALIZED UNDERSTANDING OF INSTRUCTIONS. IV D/C. IV CATHETER INTACT. PT TOLERATED WELL. ONE BAG OF PATIENT BELONGINGS RETURNED TO THE PT. PT DENIES FURTHER NEEDS OR QUESTIONS AT THIS TIME. PT AMBULATES FROM ROOM ON OWN WITHOUT ASSISTANCE FROM STAFF
== END 2018-12-12 01:17 | disposition home or self-care (01) ==
PROVIDERS: Emergency Provider Emergency Medicine
DX: F31.9 Bipolar disorder, unspecified (principal); T43.592A Poisoning by other antipsychotics and neuroleptics, intentional self-harm, initial encounter; Y92.9 Unspecified place or not applicable; Y93.89 Activity, other specified; R07.9 Chest pain, unspecified; Z72.0 Tobacco use
CPT/HCPCS: 71045; 80048; 80307; 80320; 84484; 84703; 85025; 93005; 99285; A4216; G0480

== ENCOUNTER → 2019-03-27 16:03 | Outpatient (CLI) | payer MEDICARE, MEDICAID, SELFPAY ==
[2019-03-16 13:55] VITALS: BMI 31.6
--- NOTE | 2019-03-27 16:28 | BI_ITS ---
MAMMOGRAPHY - BILATERAL SCREENING REASON FOR EXAM: Female, 38 years old. Routine annual screening examination. PERTINENT HISTORY: Non-contributory. TECHNIQUE: Digital bilateral breast yarelis (3D mammographic acquisition) in the CC and MLO projections. 2-D mediolateral oblique (MLO) and craniocaudad (CC) views of both breasts were obtained. CAD: Full Field Digital Mammography with Computer Added Detection was performed. COMPARISON: None. Baseline examination. FINDINGS: Breast Composition: The breasts are extremely dense, which lowers the sensitivity of mammography. There are no dominant masses or suspicious calcifications. No other significant abnormalities are identified. BI/SCREEN MAMM (CAD) W/YARELIS BILAT IMPRESSION: Negative screening mammogram. Yearly followup mammogram recommended. (A) ASSESSMENT CATEGORY: BIRADS Category 1: Negative. A letter regarding these results will be sent to the patient by the facility within 30 days. Approximately 10% of breast cancers are not detected by mammography. A normal mammogram should not delay biopsy of a clinically suspicious abnormality. [id number] Electronically Signed: Storm Stratton, at 10:19 EDT , Service support ,
== END ==
PROVIDERS: Family Provider Internal Medicine; PCP Internal Medicine; Referring Provider Internal Medicine; Visit Provider Internal Medicine
DX: Z12.31 Encounter for screening mammogram for malignant neoplasm of breast (principal)
CPT/HCPCS: 77063; 77067

== ENCOUNTER → 2019-03-30 09:19 | Outpatient (CLI) | payer MEDICARE, MEDICAID, SELFPAY ==
[2019-03-30 09:02] VITALS: BMI 35.1
[2019-03-30 13:06] LABS: Cholesterol 183 mg/dL (200); High Density Lipoprotein 33 mg/dL; Triglycerides 128 mg/dL; Very Low Density Lipoprotein 26 mg/dL (5-40)
[2019-03-30 13:21] LABS: Hemoglobin A1c 5.7 % (4.2-6.3)
[2019-03-30 14:00] LABS: ALB/GLOB Ratio 1.1 RATIO (0.9-2.4); AST(SGOT) 63 U/L (15-37); Alanine Aminotransfer ALT/SGPT 52 U/L (13-56); Albumin, Serum 4.1 g/dL (3.2-5.0); Alkaline Phosphatase 117 U/L (45-117); Anion Gap 8 (5-15); BUN 13 mg/dL (7-18); BUN/Creat Ratio 15.8 RATIO (10-20); Calcium,Total 8.7 mg/dL (8.5-10.1); Chloride 108 mmol/L (98-107); Creatinine, Serum 0.82 mg/dL (0.55-1.02); EST Glomerular Filtration Rate 82 mL/min (>60); Est Glom Filt Rate - Afr Amer 99 mL/min (>60); Globulin 3.6 g/dL (2.2-4.2); Glucose 131 mg/dL (74-106); Potassium 3.7 mmol/L (3.5-5.1); Protein, Total 7.7 g/dL (6.4-8.2); Sodium Level 140 mmol/L (136-145)
== END ==
PROVIDERS: Family Provider Internal Medicine; PCP Internal Medicine; Visit Provider Nurse Practitioner Family
DX: I10 Essential (primary) hypertension (principal); E11.9 Type 2 diabetes mellitus without complications; E78.5 Hyperlipidemia, unspecified
CPT/HCPCS: 36415; 80053; 80061; 83036

== ENCOUNTER → 2019-04-13 09:21 | Outpatient (CLI) | payer MEDICARE, MEDICAID, SELFPAY ==
[2019-04-13 08:55] VITALS: BMI 35.2
[2019-04-13 12:46] LABS: ALB/GLOB Ratio 1.2 RATIO (0.9-2.4); AST(SGOT) 35 U/L (15-37); Alanine Aminotransfer ALT/SGPT 39 U/L (13-56); Alkaline Phosphatase 112 U/L (45-117); Anion Gap 7 (5-15); BUN 15 mg/dL (7-18); Calcium,Total 9.1 mg/dL (8.5-10.1); Chloride 103 mmol/L (98-107); Creatinine, Serum 0.79 mg/dL (0.55-1.02); EST Glomerular Filtration Rate 86 mL/min (>60); Est Glom Filt Rate - Afr Amer 103 mL/min (>60); Globulin 3.4 g/dL (2.2-4.2); Glucose 115 mg/dL (74-106); Potassium 3.4 mmol/L (3.5-5.1); Protein, Total 7.4 g/dL (6.4-8.2); Sodium Level 137 mmol/L (136-145)
== END ==
PROVIDERS: Family Provider Internal Medicine; PCP Internal Medicine; Visit Provider Nurse Practitioner Family
DX: I10 Essential (primary) hypertension (principal)
CPT/HCPCS: 36415; 80053

== ENCOUNTER 2019-04-17 17:54 | Emergency (ER) | payer MEDICARE, MEDICAID, SELFPAY ==
[2019-04-17 17:54] VITALS: BMI 35.2
[2019-04-17 17:55] VITALS: BP 191/84; PULSE 123; RESP 18; TEMP 36.4; O2SAT 99; BMI 34.8
[2019-04-17] MEDS: LORazepam 2 MG/ML Syringe 1 MG IM (18:23)
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
[2019-04-17 19:05] LABS: Absolute Lymphocyte Count 2.89 X10^3/uL (0.83-4.51); Absolute Neutrophil Count 6.2 X10^3/uL (2.0-7.7); Basophil# 0.08 X10^3/uL; Basophil% 0.8 % (0-1); Eosinophil# 0.23 X10^3/uL; Eosinophils% 2.3 % (0-5); Hematocrit 39.5 % (37-47); Hemoglobin 13.6 g/dL (12.0-15.0); Lymphocyte # 2.89 X10^3/ul (4.0); Lymphocyte % 28.3 % (19-41); Mean Corp Hgb Conc 34.4 g/dL (32-36); Mean Corpuscular Hgb 29.8 pg (27.0-32.0); Mean Corpuscular Volume 86.6 fL (81-99); Mean Platelet Vol. 10.7 fl (6.2-12.0); Monocyte# 0.78 X10^3/uL; Monocyte% 7.6 % (0-10); NRBC Flagged by Analyzer 0 % (0-5); Neutrophil # 6.18 X10^3/uL (2.7-7.7); Neutrophil % 60.6 % (47-70); Platelet Count 440 K/mm3 (150-450); RBC Distribution Width CV 12.5 % (11.6-14.6); RBC Distribution Width SD 40.1 fl (35.1-43.9); Red Blood Count 4.56 M/mm3 (4.2-5.4); White Blood Count 10.2 K/mm3 (4.4-11.0)
--- NOTE | 2019-04-17 19:14 | ED.RN ---
sitter at bedside 1:1 starting at 1850. mom and nephew also in room.
[2019-04-17 19:15] LABS: Internal QC Validated? YES +Cl - CLEAR BKGD; Pregnancy, Serum, hCG Quali. NEGATIVE Negative
[2019-04-17 19:18] LABS: Anion Gap 7 (5-15); BUN 10 mg/dL (7-18); BUN/Creat Ratio 9.7 RATIO (10-20); Calcium,Total 9.9 mg/dL (8.5-10.1); Chloride 106 mmol/L (98-107); Creatinine, Serum 1.03 mg/dL (0.55-1.02); EST Glomerular Filtration Rate 63 mL/min (>60); Est Glom Filt Rate - Afr Amer 76 mL/min (>60); Estimated Creatinine Clearance 65.33 ml/min; Glucose 105 mg/dL (74-106); Potassium 3.3 mmol/L (3.5-5.1); Sodium Level 138 mmol/L (136-145)
[2019-04-17 19:21] LABS: Amphetamine Urine VISTA NEGATIVE (<1000 ng/mL); Barbiturate Urine VISTA NEGATIVE (< 200 ng/mL); Benzodiazepine Urine VISTA NEGATIVE (< 200 ng/mL); Cocaine Urine VISTA NEGATIVE (< 300 ng/mL); Ecstacy Urine VISTA NEGATIVE (< 500 ng/mL); Methadone Urine VISTA NEGATIVE (< 300 ng/mL); PCP Urine VISTA NEGATIVE (< 25 ng/mL); THC Urine VISTA NEGATIVE (< 50 ng/mL)
[2019-04-17 19:22] LABS: Vista UDS pH Range 8
--- NOTE | 2019-04-17 19:29 | CM.ED ---
Social Work Telephone call to [facility], referral faxed. Pending approval. Lucila FITZGERALD, LATA
[2019-04-17 20:43] VITALS: BP 163/94; PULSE 93; RESP 16; TEMP 36.7; O2SAT 94
[2019-04-17] MEDS: Metoprolol Tartrate 25 MG Tablet PO (21:20)
--- NOTE | 2019-04-17 22:28 | CM.ED ---
Social Work [facility] requesting updated vitals with improved BP. This long term care social worker making hand off to ED staff due to social work after hours. Updated vitals to be faxed to [facility] when obtained. Updated [facility] to contact ED staff directly. LIA Corral, LATA
[2019-04-17] MEDS: LORazepam 1 MG Tablet PO (22:55)
[2019-04-17] MEDS: QUEtiapine 100 MG Tablet 200 MG PO (22:55)
[2019-04-18 00:07] VITALS: BP 119/70; PULSE 77; RESP 14; TEMP 37; O2SAT 96
--- NOTE | 2019-04-18 01:00 | ED.RN ---
[facility] CALLED BACK AND HAS ACCEPTED PATIENT. [facility] CURRENTLY DOES NOT HAVING ANY FEMALE BEDS. PATIENT HAS BEEN ACCEPTED TO WAITING LIST. THEY ARE EXPECTING DISCHARGES IN THE AM
[2019-04-18 04:16] VITALS: BP 118/86; PULSE 74; RESP 18; TEMP 36.4; O2SAT 97
[2019-04-18 05:13] VITALS: RESP 18
--- NOTE | 2019-04-18 06:43 | ED.RN ---
patient family contact left phone number to reach ragini michelle [phone]
[2019-04-18 07:51] VITALS: BP 96/41; PULSE 73; RESP 16; O2SAT 97
--- NOTE | 2019-04-18 07:59 | NURSING ---
[facility] eta [facility] 09[facility]
[2019-04-18] MEDS: hydroCHLOROthiazide 25 MG Tablet PO (08:21)
[2019-04-18] MEDS: QUEtiapine 100 MG Tablet 200 MG PO (08:21)
[2019-04-18] MEDS: amLODIPine 10 MG Tablet PO (08:21)
[2019-04-18] MEDS: Sertraline 50 MG Tablet 75 MG PO (08:21)
[2019-04-18] MEDS: Pantoprazole Sodium 40 MG Tablet PO (08:21)
[2019-04-18 09:05] VITALS: BP 96/41; PULSE 93; RESP 16; O2SAT 97
== END 2019-04-18 09:08 ==
PROVIDERS: Emergency Provider Emergency Medicine; Family Provider Internal Medicine; PCP Internal Medicine
DX: R45.851 Suicidal ideations (principal); F32.9 Major depressive disorder, single episode, unspecified; F41.9 Anxiety disorder, unspecified; I10 Essential (primary) hypertension; F17.200 Nicotine dependence, unspecified, uncomplicated; Z79.899 Other long term (current) drug therapy
CPT/HCPCS: 80048; 80307; 80320; 84703; 85025; 96372; 99285; G0480

== ENCOUNTER 2019-05-12 15:46 | Emergency (ER) | payer MEDICARE, MEDICAID, SELFPAY ==
[2019-05-12 15:49] VITALS: BP 122/90; PULSE 80; RESP 16
[2019-05-12 15:50] VITALS: BP 174/115; PULSE 114; RESP 17; TEMP 36.8; O2SAT 97; BMI 36.2
--- NOTE | 2019-05-12 16:04 | EKG12_ITS ---
Test Reason : Blood Pressure : / mmHG Vent. Rate : 095 BPM Atrial Rate : 095 BPM P-R Int : 180 ms QRS Dur : 108 ms QT Int : 380 ms P-R-T Axes : 011 -07 017 degrees QTc Int : 477 ms Normal sinus rhythm Septal infarct , age undetermined Abnormal ECG Confirmed by DEVAN LONGO, ANNA ([id number]), photograph editor JANE MONTALVO ([id number]) on 05/16/2019 11:56:52 AM Referred By: JAQUELIN Confirmed By:ELSIE HARTMAN MD
[2019-05-12 16:31] LABS: Absolute Lymphocyte Count 2.92 X10^3/uL (0.83-4.51); Absolute Neutrophil Count 5.3 X10^3/uL (2.0-7.7); Basophil# 0.07 X10^3/uL; Basophil% 0.7 % (0-1); Eosinophil# 0.51 X10^3/uL; Eosinophils% 5.3 % (0-5); Hematocrit 38.5 % (37-47); Hemoglobin 12.6 g/dL (12.0-15.0); Lymphocyte # 2.92 X10^3/ul (4.0); Lymphocyte % 30.3 % (19-41); Mean Corp Hgb Conc 32.7 g/dL (32-36); Mean Corpuscular Hgb 28.4 pg (27.0-32.0); Mean Corpuscular Volume 86.7 fL (81-99); Mean Platelet Vol. 10.6 fl (6.2-12.0); Monocyte# 0.72 X10^3/uL; Monocyte% 7.5 % (0-10); NRBC Flagged by Analyzer 0 % (0-5); Neutrophil # 5.34 X10^3/uL (2.7-7.7); Neutrophil % 55.4 % (47-70); Platelet Count 366 K/mm3 (150-450); RBC Distribution Width SD 40.4 fl (35.1-43.9); Red Blood Count 4.44 M/mm3 (4.2-5.4); White Blood Count 9.6 K/mm3 (4.4-11.0)
--- NOTE | 2019-05-12 16:34 | CM.ED ---
SOCIAL WORK RECEIVED CALL FROM NANDINI WITH CRISIS. CRISIS SENT PATIENT IN AND WILL EVALUATE FOR NEEDS. UPDATED STAFF AND PHYSICIAN. TRISTEN MEADE, SENIOR ESCROW OFFICER, CLINICAL TRIALS DATA COORDINATOR.
[2019-05-12 16:43] LABS: Anion Gap 6 (5-15); BUN 12 mg/dL (7-18); Calcium,Total 9.1 mg/dL (8.5-10.1); Chloride 105 mmol/L (98-107); Creatinine, Serum 0.86 mg/dL (0.55-1.02); EST Glomerular Filtration Rate 78 mL/min (>60); Est Glom Filt Rate - Afr Amer 94 mL/min (>60); Estimated Creatinine Clearance 78.25 ml/min; Glucose 85 mg/dL (74-106); Potassium 3.4 mmol/L (3.5-5.1); Sodium Level 140 mmol/L (136-145)
--- NOTE | 2019-05-12 16:47 | ED.DCSUM_ITS ---
- ER Visit Summary Date of Service: 05/12/19 Chief Complaint: [Paranoia] History of Present Illness: The patient is a 38 F [presents to the emergency department with 3 to 4-day history of increased paranoia. Patient does have history of bipolar disorder, schizophrenia, and split personality disorder. Patient states that she believes that she has been taking her medications although she has an extra 2-1/2 weeks worth of medicine and she is not sure how that is possible. Patient feels confused. Patient states that she would like to go to sleep and not wake up. Patient is having suicidal thoughts but really has no plan on harming herself. Patient states that she has had some dreams of knives. She denies any homicidal ideations. She does have auditory and visual hallucinations including seeing bugs crawling all over her.] Physical Examination: [HEENT-PERRLA, EOMI. Cranial nerves II through XII grossly intact. TMs clear. Mucous membranes moist. No adenopathy. Cardiovascular-regular rate and rhythm without murmur or ectopy Lungs-clear to auscultation, chest wall stable without crepitus or subcu emphysema Abdomen-normoactive bowel sounds, soft, nontender, no rebound or rigidity, no peritoneal signs. Extremities-intact ?4, normal range of motion, normal pulses, atraumatic] Test Results: [EKG obtained arrival shows sinus rhythm with a ventricular rate of 95 bpm with old septal infarct noted. CBC with differential showed a white blood cell count of 9.6, hemoglobin 12.6, hematocrit 38, placed 366. Chemistries unremarkable other than a slightly depressed potassium 3.4. hCG was negative. Toxicology screen was normal. Alcohol was normal.] Emergency Department Course and Treatment: [Patient received 40 mEq of potassium chloride p.o. Patient was seen by crisis] Treatment Plan: And will be to transfer patient to psychiatric facility for further work-up and treatment of her psychosis] Disposition: [Transfer to psychiatric facility] Impression: [Paranoia Psychosis Depression Suicidal ideation] This note was generated with [employer] software. It may contain incorrect words, spelling, and punctuation that were not noted in review of the chart prior to signing ED Disposition - Plan for ED Patient: Referrals: Ryan Mulligan MD [Primary Care Provider] -
[2019-05-12 17:08] LABS: Alcohol, Blood (Medical)-Serum < 3.0 mg/dL
[2019-05-12 17:15] LABS: Internal QC Validated? YES +Cl - CLEAR BKGD; Pregnancy, Serum, hCG Quali. NEGATIVE Negative
[2019-05-12 17:29] LABS: Amphetamine Urine VISTA NEGATIVE (<1000 ng/mL); Barbiturate Urine VISTA NEGATIVE (< 200 ng/mL); Benzodiazepine Urine VISTA NEGATIVE (< 200 ng/mL); Cocaine Urine VISTA NEGATIVE (< 300 ng/mL); Ecstacy Urine VISTA NEGATIVE (< 500 ng/mL); Methadone Urine VISTA NEGATIVE (< 300 ng/mL); PCP Urine VISTA NEGATIVE (< 25 ng/mL); THC Urine VISTA NEGATIVE (< 50 ng/mL); Vista UDS pH Range 6
[2019-05-12 18:51] VITALS: RESP 16
--- NOTE | 2019-05-12 18:51 | CM.ED ---
SOCIAL WORK PULMONARY PHYSICIAN, LAILA HERE AND EVALUATED PATIENT. PLAN IS FOR INPATIENT PSYCH HOSPITALIZATION. REFERRAL TO BE SENT TO [facility] PER LAIL[facility]. STAFF UPDATED. TRISTEN MEADE, STERILIZATION TECHNICIAN, COPY AND PRINT ASSOCIATE.
--- NOTE | 2019-05-12 19:49 | NURSING ---
ACCEPTED TO [facility] BY DR. SMILEY [phone] REPORT
[2019-05-12 20:17] VITALS: BP 151/90; PULSE 81; RESP 16; O2SAT 96
[2019-05-12] MEDS: QUEtiapine 100 MG Tablet 200 MG PO (21:14)
--- NOTE | 2019-05-12 23:08 | ED.RN ---
PER DR. HAMMER PT DOES NOT NEED A SITTER.
[2019-05-12 23:12] VITALS: RESP 14
[2019-05-12 23:32] VITALS: BP 139/80; PULSE 83; RESP 18; TEMP 36.5; O2SAT 96
[2019-05-13] VITALS (8 sets, daily range): BP systolic 130–139; BP diastolic 81–94; PULSE 86–96; RESP 12–20; TEMP 36.8; O2SAT 96–98
[2019-05-13] MEDS: amLODIPine 10 MG Tablet PO (07:33)
[2019-05-13] MEDS: QUEtiapine 100 MG Tablet 200 MG PO (07:33)
[2019-05-13] MEDS: hydroCHLOROthiazide 25 MG Tablet PO (07:33)
[2019-05-13] MEDS: Pantoprazole Sodium 40 MG Tablet PO (07:33)
--- NOTE | 2019-05-13 09:45 | NURSING ---
CALLED [facility] ABOUT ETA. ALONSO IS ENROUTE
== END 2019-05-13 10:08 ==
LOC: ED 16:58
PROVIDERS: Emergency Provider Emergency Medicine; Family Provider Internal Medicine; PCP Internal Medicine
DX: F22 Delusional disorders (principal); F32.9 Major depressive disorder, single episode, unspecified; R45.851 Suicidal ideations; F29 Unspecified psychosis not due to a substance or known physiological condition; F20.9 Schizophrenia, unspecified; F60.89 Other specific personality disorders; I10 Essential (primary) hypertension; K21.9 Gastro-esophageal reflux disease without esophagitis; Z79.899 Other long term (current) drug therapy; Z72.0 Tobacco use
CPT/HCPCS: 80048; 80307; 80320; 84703; 85025; 93005; 99285; G0480

== ENCOUNTER 2019-05-30 22:50 | Emergency (ER) | payer MEDICARE, MEDICAID, SELFPAY ==
[2019-05-30 22:51] VITALS: BP 156/93; PULSE 86; RESP 16; TEMP 36.3; O2SAT 97; BMI 36.1
[2019-05-30] MEDS: Naproxen 500 MG Tablet PO (23:23)
[2019-05-30] MEDS: diazePAM 5 MG Tablet PO (23:23)
--- NOTE | 2019-05-30 23:25 | RAD_ITS ---
STUDY: X-RAY - LEFT SHOULDER REASON FOR EXAM: Female, 38 years old. Pain TECHNIQUE: 4 view(s) of the shoulder. COMPARISON: None. FINDINGS: Normal glenohumeral articulation. Normal acromioclavicular joint. Normal acromion. Normal humeral head and visualized proximal humerus. The soft tissue structures are unremarkable. Normal visualized pulmonary apex. RAD/Shoulder min 2 Views IMPRESSION: Normal x-ray examination of the shoulder. Electronically Signed: Quinten Fajardo DO at 23:39 EDT Tel [phone], Service support ,
--- NOTE | 2019-05-30 23:56 | ED.VIS.GEN ---
History of Present Illness Chief Complaint: Upper Extremity Injury Detail of Chief Complaint: Left shoulder pain Informant: Patient Onset: Today Context: Sudden Onset Current Severity: Moderate Maximum Severity: Moderate Narrative: Patient states that she is preparing to move. She was packing some boxes today. 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 She has had pain from her neck across her left shoulder down her left arm since that time. She reports some intermittent tingling in her left hand. She is right-hand dominant. She has not taken anything for pain. - Past Medical History (1) Bipolar disorder Status: Chronic (2) Diabetes Status: Chronic (3) GERD (gastroesophageal reflux disease) Status: Chronic (4) High blood pressure Status: Chronic (5) High cholesterol Status: Chronic Past Medical History - Allergies and Home Meds Allergies/Adverse Reactions: Allergies No Known Allergies Allergy (Verified 05/12/19 15:50) Primary Care Physician: Humphrey Harley DO [STAFF PHYSICIAN] - 1 Week if not improving Prior records reviewed: Yes Past Medical History: - - Reviewed Lives: With Family Smoking Status: Current every day smoker Review of Systems General: Denies: Chills, Fever Eyes: Denies: Visual changes - bilaterally ENT: Denies: Bilateral ear pain Cardiovascular: Denies: Chest pain Respiratory: Denies: Dyspnea, Cough Gastrointestinal: Denies: Abdominal pain, Nausea, Vomiting Genitourinary: Denies: Dysuria Musculoskeletal: Reports: Arthralgias, Neck pain Skin: Denies: Rash, Wounds Neurological: Denies: Headache Hematologic: Denies: Easy bruising Allergy: Denies: Uticaria Physical Exam Vital Signs/Narrative: Vital Signs Temp Pulse Resp BP Pulse Ox 05/30/19 22:51 97.3 F L 86 16 156/93 H 97 Inital Vital Signs reviewed: Yes General: Well nourished, Well developed Head: Normocephalic Eyes: Perrl ENT: Moist mucous membranes Neck: Supple Cardiovascular: Regular rate, Regular rhythm Respiratory: No distress, CTA bilaterally Abdomen: Soft, Nontender Extremities: Tenderness - Patient has tenderness across the top of her left shoulder and radiating down around the left scapula. She has mild tenderness around the left shoulder joint itself. She does have pain with range of motion of her shoulder. There is no evidence of dislocation. She has strong distal pulses and a strong hand grasp. Skin: - - 3 small areas of erythema on the left upper arm consistent with urticaria. Neurological: Alert, Oriented x3 Psychological: Normal affect Diagnostic/Tx/Re-eval Impressions Shoulder X-Ray 05/30/19 23:25 IMPRESSION: Normal x-ray examination of the shoulder. Electronically Signed: Quinten Fajardo DO at 23:39 EDT Tel [phone], Service support , 05/30/19 23:25 Shoulder min 2 Views [RAD] Stat - Medical Decision Making Patient was given naproxen and a dose of Valium for muscle spasm. Test results are discussed with her. She will be given a sling but was instructed to come out of the sling 3 or 4 times a day to work on range of motion of her shoulder joint. She will be given prescriptions for naproxen and Valium. She is referred to Dr. Harley, on-call for orthopedics. ED Disposition - Plan for ED Patient: Disposition: Home or Assisted Living Diagnosis: Shoulder sprain Instructions: Shoulder Sprain Prescriptions: Naproxen [Naprosyn] 500 mg PO BID PRN PRN #20 tab PRN Reason: Pain Score 1-10/10 Prescription Printed Diazepam [Valium] 5 mg PO Q8 PRN #10 tab PRN Reason: Muscle Spasm Prescription Printed Referrals: Humphrey Harley DO [STAFF PHYSICIAN] - 1 Week if not improving
[2019-05-31 00:13] VITALS: RESP 15
== END 2019-05-31 00:13 | disposition home or self-care (01) ==
PROVIDERS: Emergency Provider Emergency Medicine; Family Provider Internal Medicine; PCP Internal Medicine
DX: S43.402A Unspecified sprain of left shoulder joint, initial encounter (principal); X58.XXXA Exposure to other specified factors, initial encounter; Y93.89 Activity, other specified; I10 Essential (primary) hypertension; E78.00 Pure hypercholesterolemia, unspecified; K21.9 Gastro-esophageal reflux disease without esophagitis; F31.9 Bipolar disorder, unspecified; F17.200 Nicotine dependence, unspecified, uncomplicated; Z79.899 Other long term (current) drug therapy
CPT/HCPCS: 73030; 99285

== ENCOUNTER → 2020-10-30 16:33 | Outpatient (CLI) | payer MEDICARE, SELFPAY ==
[2020-10-30 17:36] LABS: Absolute Lymphocyte Count 3.48 X10^3/uL (0.83-4.51); Basophil% 0.8 % (0-1); Eosinophil# 0.48 X10^3/uL; Hematocrit 35.8 % (37-47); Lymphocyte # 3.48 X10^3/ul (4.0); Mean Corp Hgb Conc 33.5 g/dL (32-36); Mean Corpuscular Hgb 28.6 pg (27.0-32.0); Mean Corpuscular Volume 85.4 fL (81-99); Mean Platelet Vol. 11.6 fl (6.2-12.0); Monocyte# 0.81 X10^3/uL; Monocyte% 6.8 % (0-10); NRBC Flagged by Analyzer 0 % (0-5); Neutrophil # 7.02 X10^3/uL (2.7-7.7); Neutrophil % 58.6 % (47-70); Platelet Count 408 K/mm3 (150-450); RBC Distribution Width CV 13.1 % (11.6-14.6); RBC Distribution Width SD 40.6 fl (35.1-43.9); Red Blood Count 4.19 M/mm3 (4.2-5.4)
[2020-10-30 18:40] LABS: Vitamin D,25 Hydroxy 13.2 ng/mL
[2020-10-30 19:00] LABS: ALB/GLOB Ratio 1.1 RATIO (0.9-2.4); AST(SGOT) 46 U/L (15-37); Alanine Aminotransfer ALT/SGPT 52 U/L (13-56); Alkaline Phosphatase 93 U/L (45-117); Anion Gap 9 (5-15); BUN 13 mg/dL (7-18); BUN/Creat Ratio 13.6 RATIO (10-20); Calcium,Total 9.2 mg/dL (8.5-10.1); Chloride 100 mmol/L (98-107); Creatinine, Serum 0.96 mg/dL (0.55-1.02); EST Glomerular Filtration Rate 68 mL/min (>60); Est Glom Filt Rate - Afr Amer 82 mL/min (>60); Globulin 3.7 g/dL (2.2-4.2); Glucose 133 mg/dL (74-106); Potassium 3.1 mmol/L (3.5-5.1); Protein, Total 7.7 g/dL (6.4-8.2); Sodium Level 138 mmol/L (136-145)
== END ==
PROVIDERS: PCP Family Medicine Geriatric Medicine; Visit Provider Family Medicine Geriatric Medicine
DX: E55.9 Vitamin D deficiency, unspecified (principal); R53.83 Other fatigue
CPT/HCPCS: 36415; 80053; 82306; 84443; 85025

== ENCOUNTER 2020-12-04 10:56 | Emergency (ER) | payer MEDICARE, MEDICAID, SELFPAY ==
[2020-12-04 10:57] VITALS: BP 184/101; BP 188/99; PULSE 82; PULSE 83; RESP 17; TEMP 36.7; O2SAT 96; BMI 36.6
--- NOTE | 2020-12-04 11:24 | CT_ITS ---
STUDY: CT BRAIN WITHOUT CONTRAST REASON FOR EXAM: Female, 40 years old. Headache RADIATION DOSAGE (If Supplied By Facility): CTDIvol = ( 44.99 ) mGy, DLP = ( 762.36 ) mGycm TECHNIQUE: Transaxial CT imaging of the brain was performed without administration of intravenous contrast material. Individualized dose optimization techniques were used for this CT. COMPARISON: No relevant priors. FINDINGS: Normal soft tissue structures. Normal calvarium. Normal size ventricles and extra-axial spaces for the patient''s age. Normal white matter tracts of the cerebral hemispheres. Normal basal ganglia and thalami. Normal brainstem. Normal cerebellum. There is no intracranial hemorrhage. There are no findings of an acute ischemic infarction. Normal visualized paranasal sinuses. CT/Brain/Head without Contrast IMPRESSION: Normal unenhanced CT scan of the brain. Electronically Signed: Perri Lea MD at 12:35 EDT Tel , Service support ,
[2020-12-04] MEDS: Ondansetron 4 MG/2 ML Vial IV (12:02)
[2020-12-04] MEDS: Morphine 4 MG/ML Syringe IV (12:03)
[2020-12-04 12:06] VITALS: BP 162/92; PULSE 84; RESP 18; O2SAT 97
--- NOTE | 2020-12-04 12:07 | ED.RN ---
pt painfree shortly after medicare interviewer.
[2020-12-04 12:12] LABS: Hematocrit 36.6 % (37-47); Hemoglobin 11.8 g/dL (12.0-15.0); Mean Corp Hgb Conc 32.2 g/dL (32-36); Mean Corpuscular Hgb 27.8 pg (27.0-32.0); Mean Corpuscular Volume 86.3 fL (81-99); Mean Platelet Vol. 10.3 fl (6.2-12.0); Platelet Count 310 K/mm3 (150-450); RBC Distribution Width CV 13.4 % (11.6-14.6); RBC Distribution Width SD 42.1 fl (35.1-43.9); Red Blood Count 4.24 M/mm3 (4.2-5.4); White Blood Count 8.5 K/mm3 (4.4-11.0)
[2020-12-04 12:21] LABS: Anion Gap 3 (5-15); BUN 9 mg/dL (7-18); BUN/Creat Ratio 13.2 RATIO (10-20); Calcium,Total 8.8 mg/dL (8.5-10.1); Chloride 108 mmol/L (98-107); Creatinine, Serum 0.68 mg/dL (0.55-1.02); EST Glomerular Filtration Rate 101 mL/min (>60); Est Glom Filt Rate - Afr Amer 122 mL/min (>60); Estimated Creatinine Clearance 96.98 ml/min; Glucose 119 mg/dL (74-106); Potassium 3.9 mmol/L (3.5-5.1); Sodium Level 138 mmol/L (136-145)
[2020-12-04 12:23] LABS: Internal QC Validated? YES +Cl - CLEAR BKGD; Pregnancy, Serum, hCG Quali. NEGATIVE Negative
--- NOTE | 2020-12-04 13:03 | ED.VISSUMM ---
- ER Visit Summary Date of Service: 12/04/20 Chief Complaint: Headache History of Present Illness: The patient is a [address] Mendoza. She reports that she has a headache that began 5 days ago. Is been gradually worsening. It is a sharp pain that is diffuse. It is 10 out of 10 at worst 9-10 currently. Is worsened by movement. It is relieved by relaxing, Advil, and laying still. She reports has been nausea vomit approximate 10 times. No blood in her emesis. She has mild photophobia. Patient denies any change in her vision. No recent injury to her head. She denies fever. She reports that her blood pressure has been elevated in the 200/100 range. Physical Examination: Vitals: Stable. Afebrile. General: Well-nourished and well-developed. Head: Normocephalic atraumatic. Neck: Supple, no lymphadenopathy. No JVD. Nontender. Cardiovascular: Regular rate and rhythm. No murmurs. Respiratory: No respiratory distress. Clear to auscultation bilaterally. Abdominal: Soft, nontender, nondistended, normal bowel sounds. No guarding, rebound, or peritoneal signs. Back: Nontender. Extremities: Nontender, no edema. Skin: Normal color, no rash. Neurologic: Alert and oriented ?3. Cranial nerves II through XII are intact. Normal strength and sensation. Psych: Normal affect. Test Results: CBC shows a hemoglobin 11.8 and hematocrit 36.6. Chem-7 shows a chloride of 108 and glucose 119. test is negative. Clinical Impression(s) from Imaging Studies Brain CT 12/04/20 11:24 IMPRESSION: Normal unenhanced CT scan of the brain. Electronically Signed: Perri Lea MD at 12:35 EDT Tel , Service support , Emergency Department Course and Treatment: Patient had an IV placed. She was given morphine and Zofran IV. She reports her headache is much improved. She denies any further nausea. Repeat blood pressure was 146/83. Treatment Plan: Patient be discharged instructions to follow-up with her primary care physician 1 to 2 days if not improving. Return to the emergency department for any worsening symptoms. Disposition: To home in [facility] and stable condition. Impression: 1 1. Hypertension. 2. Cephalgia. This note was generated with [employer] dictation software. It may contain incorrect words, spelling, and punctuation that were not noted in review of the chart prior to signing ED Disposition - Plan for ED Patient: Disposition: Home or Assisted Living Instructions: ED Headache Unspecified, ED Hypertension, Established Referrals: Julian Mendoza Chi, MD [Primary Care Provider] - 1 Week
[2020-12-04 13:26] VITALS: BP 162/91; PULSE 75; RESP 16; O2SAT 98
== END 2020-12-04 13:27 | disposition home or self-care (01) ==
PROVIDERS: Emergency Provider Emergency Medicine; PCP Family Medicine Geriatric Medicine
DX: I10 Essential (primary) hypertension (principal); R51.9 Headache, unspecified; R11.2 Nausea with vomiting, unspecified; F17.200 Nicotine dependence, unspecified, uncomplicated; K21.9 Gastro-esophageal reflux disease without esophagitis
CPT/HCPCS: 70450; 80048; 84703; 85027; 96374; 96375; 99285; J7040; J2405

== ENCOUNTER 2021-02-27 12:47 | Emergency (ER) | payer MEDICARE, MEDICAID, SELFPAY ==
[2021-02-27 12:47] VITALS: BP 118/74; PULSE 86; RESP 14; TEMP 36.4; O2SAT 96; BMI 35.6
--- NOTE | 2021-02-27 13:15 | EX.ED.DYSGE1 ---
HPI History of Present Illness Chief Complaint: Nausea/Vomiting Informant: patient Narrative Narrative: Patient is a 40-year-old female with a past medical history of hypertension, hyperlipidemia, diabetes who presents to the emergency department for nausea/vomiting over the past 2 weeks. This is around the same time that her father . She feels like she is under a lot of stress. She did have at about 4 episodes of vomiting per day. She has been mildly constipated but denies any change in bowel movements. She has not had any urinary symptoms. No fevers or chills. She states that one of her relatives did recently test positive for Covid but she already was diagnosed with Covid in October and has been vaccinated. She states that she has been coughing since then which is not worse than normal. She has mild lower quadrant abdominal pain. No known aggravating or relieving factors for this. She states that she has not been able to keep any of her medications down. She does have a history of 2 C-sections. She denies any chance of being currently. No back pain associate this. No shortness of breath, chest pain or lightheadedness. [facility] Medical History (Updated 02/27/21 @ 14:[address] Humphrey Fry, ) Arthritis Bipolar disorder Diabetes GERD (gastroesophageal reflux disease) H/O emotional problems High blood pressure High cholesterol HTN (hypertension) Hyperlipidemia split personality disorder Vision problems Home Medications sertraline 50 mg tablet 100 mg PO DAILY tab 03/16/19 [History Last Taken Unknown] naproxen 500 mg PO BID PRN PRN #20 tab 05/30/19 [Rx Last Taken Unknown] amlodipine 10 mg tablet 10 mg PO DAILY #90 tab 08/29/19 [Rx Last Taken Unknown] gemfibrozil 600 mg tablet 600 mg PO BID #60 tab 11/20/19 [Rx Last Taken Unknown] hydrochlorothiazide 25 mg tablet 25 mg PO DAILY #60 tab 11/20/19 [Rx Last Taken Unknown] omeprazole 40 mg capsule,delayed release 40 mg PO DAILY #60 cap 11/20/19 [Rx Last Taken Unknown] sertraline 50 mg PO DAILY 12/04/20 [History Last Taken Unknown] ondansetron 4 mg PO Q8H 4 Days #12 tab 02/27/21 [Rx Last Taken Unknown] Allergy/AdvReac Type Severity Reaction Status Date / Time No Known Allergies Allergy Verified 02/27/21 12:50 Family History Other Anxiety Arthritis Cancer Cervical cancer Depression Heart disease High cholesterol Hypertension Mental disorder Psychiatric care Suicide attempt Surgical History (Updated 04/17/19 @ 18:[address] Sammy Ignacio MD) No history of previous surgery Social History Smoking Status: Former smoker alcohol intake: never substance use type: does not use what type of physical activity do you participate in: none ROS ROS ED Constitutional Constitutional ED: Denies chills or fever(s) Eyes Eyes: Denies change in vision ENT ENT ED: Denies epistaxis or rhinorrhea Cardiovascular Cardiovascular: Denies chest pain or palpitations Respiratory/Chest Respiratory/Chest: Reports cough; Denies dyspnea or dyspnea on exertion Gastrointestinal Gastrointestinal: Reports abdominal pain, constipation, nausea and vomiting; Denies diarrhea or melena Genitourinary Genitourinary ED: Denies dysuria, hematuria or urinary frequency Musculoskeletal Musculoskeletal: Denies back pain or neck pain Integumentary Denies rash Neurologic Neurologic: Denies dizziness, headache(s) or weakness EXAM Physical Exam Const Vital Signs: 02/27/21 12:47 Temperature 97.6 F L Temperature Source Temporal Pulse Rate 86 Respiratory Rate 14 Blood Pressure 118/74 Blood Pressure Mean 88 Pulse Ox 96 Oxygen Delivery Method Room Air Positive well nourished and well developed General Appearance ED: well developed and NAD HEENT Reports normocephalic, head/scalp atraumatic and moist mucous membranes Eyes PERRL and EOMs intact bilaterally Neck supple Chest Wall inspection of chest normal Resp normal respiratory effort and clear to auscultation bilaterally Auscultation: Negative for rales, rhonchi or wheezes Cardio regular rate, regular rhythm and no murmurs GI normal to inspection, nondistended, normoactive bowel sounds GI Narrative: Mild tenderness to deep palpation of lower quadrants bilaterally. Palpation: soft; Negative for guarding or rebound tenderness present Back/Spine no CVA tenderness Extremity normal to inspection General Extremety ED: Negative for edema or tenderness General Extremity: Negative for edema Neuro oriented x3, CN's II-XII intact bilaterally and no sensory deficits noted Sensorium / Orientation: alert Motor Exam: strength 5/5 throughout Psych mental status grossly normal Skin no rashes or lesions noted MDM MDM MDM Narrative Medical decision making narrative: Patient presents to the ED for vomiting over the past 2 weeks. Upon arrival to the emergency department vital signs within normal limits. She is in no acute distress. She has a very benign exam. Will check basic lab work to evaluate electrolyte status. We'll treat symptomatically with Zofran and IV fluids. Patient feeling much better on reevaluation. Her electrolytes showed her to be hyponatremic and hypochloremic. Her potassium is similar to previous lab draws. White blood cell count within normal limits. She is feeling much better on reexamination. She does feel countable going home. I will write a prescription for Zofran. She states that she does follow with a psychiatrist and counselor as an outpatient. She needs to have close follow-up with her PCP as well. Return precautions are reviewed with her. Lab Data Labs: Laboratory Results - last 24 hr 02/27/21 02/27/21 02/27/21 13:30 13:30 13:40 WBC 9.8 RBC 4.28 Hgb 11.7 L Hct 34.7 L MCV 81.1 MCH 27.3 MCHC 33.7 RDW Std Deviation 38.9 RDW Coeff of Elliot 13.3 Plt Count 328 MPV 11.2 Immature Gran % (Auto) 0.300 Neut % (Auto) 62.2 Lymph % (Auto) 24.7 [place] % (Auto) 9.1 Eos % (Auto) 3.1 Baso % (Auto) 0.6 Absolute Neuts (auto) 6.1 Absolute Lymphs (auto) 2.41 Nucleated RBC % 0 Sodium 132 L Potassium 3.3 L Chloride 96 L Carbon Dioxide 28.0 Anion Gap 8 BUN 8 Creatinine 0.88 Estim Creat Clear Calc 74.94 Est GFR (MDRD) Af Amer 90 Est GFR (MDRD) Non-Af 74 BUN/Creatinine Ratio 9.0 L Glucose 109 H Calcium 9.0 Total Bilirubin 0.50 AST 19 ALT 26 Alkaline Phosphatase 91 Total Protein 7.3 Albumin 4.0 Globulin 3.3 Albumin/Globulin Ratio 1.2 Urine Color Yellow Urine Clarity Clear Urine pH 7.0 Ur Specific [place] 1.010 Urine Protein Negative Urine Glucose (UA) Normal Urine Ketones Negative Urine Occult Blood Negative Urine Nitrite Negative Urine Bilirubin Negative Urine Urobilinogen 1 H Ur Leukocyte Esterase 100 H Urine RBC 0-5 SEEN Urine WBC 0-5 SEEN Ur Squamous Epith Cells 0-5 SEEN Urine Bacteria 0 SEEN Urine Mucus 0 SEEN Urine Test Negative Discharge Plan Triage Chief Complaint: Nausea/Vomiting ED Provider: Humphrey Fry Dx/Rx/DC Orders Clinical Impression: Nausea & vomiting Instructions: ED Vomiting (Adult) Prescriptions: New ondansetron 4 mg tablet,disintegrating 4 mg PO Q8H 4 Days Qty: 12 RF: 0 No Action sertraline [Zoloft] 50 mg tablet 100 mg PO DAILY RF: 0 naproxen 500 MG tablet 500 mg PO BID PRN PRN (Reason: Pain Score 1-10/10) Qty: 20 RF: 0 sertraline 50 MG tablet 50 mg PO DAILY RF: 0 amlodipine 10 mg tablet 10 mg PO DAILY Qty: 90 RF: 1 gemfibrozil 600 mg tablet 600 mg PO BID Qty: 60 RF: 1 hydrochlorothiazide 25 mg tablet 25 mg PO DAILY Qty: 60 RF: 1 omeprazole 40 mg capsule,delayed release(DR/EC) 40 mg PO DAILY Qty: 60 RF: 1 Primary Care Provider: Julian Mendoza Chi Referrals: Julian Mendoza Chi, MD [Primary Care Provider] - 3-5 Days Disposition Disposition: Home, Self Care
[2021-02-27] MEDS: 0.9% Normal Saline 1,000 ML 1000 ML IV (13:43)
[2021-02-27] MEDS: Ondansetron 4 MG/2 ML Vial IV (13:43)
[2021-02-27 13:45] LABS: Absolute Lymphocyte Count 2.41 X10^3/uL (0.83-4.51); Absolute Neutrophil Count 6.1 X10^3/uL (2.0-7.7); Basophil# 0.06 X10^3/uL; Basophil% 0.6 % (0-1); Eosinophils% 3.1 % (0-5); Hematocrit 34.7 % (37-47); Hemoglobin 11.7 g/dL (12.0-15.0); Lymphocyte # 2.41 X10^3/ul (0.83-4.51); Lymphocyte % 24.7 % (19-41); Mean Corp Hgb Conc 33.7 g/dL (32-36); Mean Corpuscular Hgb 27.3 pg (27.0-32.0); Mean Corpuscular Volume 81.1 fL (81-99); Mean Platelet Vol. 11.2 fl (6.2-12.0); Monocyte# 0.89 X10^3/uL; Monocyte% 9.1 % (0-10); NRBC Flagged by Analyzer 0 % (0-5); Neutrophil # 6.06 X10^3/uL (2.7-7.7); Neutrophil % 62.2 % (47-70); Platelet Count 328 K/mm3 (150-450); RBC Distribution Width CV 13.3 % (11.6-14.6); RBC Distribution Width SD 38.9 fl (35.1-43.9); Red Blood Count 4.28 M/mm3 (4.2-5.4); White Blood Count 9.8 K/mm3 (4.4-11.0)
[2021-02-27 13:50] LABS: Bacteria 0 SEEN /hpf (None Seen); Mucous, Urine 0 SEEN /hpf (<or=2+)
[2021-02-27 13:54] LABS: Color, Urine Yellow (Yellow); Glucose, Dipstick Normal (Normal); Ketone-Dipstick Negative (Negative); Leukocyte Esterase-Dipstick 100 /ul (Negative); Nitrite-Dipstick Negative (Negative); Occult Blood-Urine Negative /ul (Negative); Protein-Dipstick Negative (Negative); Urine Bilirubin Dipstick Negative (Negative); Urine Clarity Clear (Clear); Urine Urobilinogen 1 mg/dl (Normal)
[2021-02-27 14:00] LABS: Internal QC Validated? YES +Cl - CLEAR BKGD; Pregnancy, Urine Negative Negative; Red Blood Cells-Urine 0-5 SEEN /hpf (0-5); Squamous Epithelial Cells - UA 0-5 SEEN /hpf (5-10); White Blood Cells 0-5 SEEN /hpf (0-5)
[2021-02-27 14:01] LABS: ALB/GLOB Ratio 1.2 RATIO (0.9-2.4); AST(SGOT) 19 U/L (15-37); Alanine Aminotransfer ALT/SGPT 26 U/L (13-56); Alkaline Phosphatase 91 U/L (45-117); Anion Gap 8 (5-15); BUN 8 mg/dL (7-18); Chloride 96 mmol/L (98-107); Creatinine, Serum 0.88 mg/dL (0.55-1.02); EST Glomerular Filtration Rate 74 mL/min (>60); Est Glom Filt Rate - Afr Amer 90 mL/min (>60); Estimated Creatinine Clearance 74.94 ml/min; Globulin 3.3 g/dL (2.2-4.2); Glucose 109 mg/dL (74-106); Potassium 3.3 mmol/L (3.5-5.1); Protein, Total 7.3 g/dL (6.4-8.2); Sodium Level 132 mmol/L (136-145)
[2021-02-27 15:14] VITALS: BP 126/76; PULSE 80; RESP 16; O2SAT 99
== END 2021-02-27 15:19 | disposition home or self-care (01) ==
PROVIDERS: Emergency Provider Emergency Medicine; PCP Family Medicine Geriatric Medicine
DX: R11.2 Nausea with vomiting, unspecified (principal); E78.5 Hyperlipidemia, unspecified; I10 Essential (primary) hypertension; K21.9 Gastro-esophageal reflux disease without esophagitis; Z87.891 Personal history of nicotine dependence; Z79.899 Other long term (current) drug therapy; Z86.16 Personal history of COVID-19
CPT/HCPCS: 80053; 81001; 81025; 85025; 96361; 96374; 99284; J7030; A4216; J2405

== ENCOUNTER → 2021-03-27 13:44 | Outpatient (CLI) | payer MEDICARE, MEDICAID, SELFPAY ==
[2021-02-27 12:47] VITALS: BMI 35.6
[2021-03-27 17:09] LABS: Absolute Lymphocyte Count 3.91 X10^3/uL (0.83-4.51); Absolute Neutrophil Count 8.6 X10^3/uL (2.0-7.7); Basophil% 0.7 % (0-1); Eosinophil# 0.77 X10^3/uL; Eosinophils% 5.3 % (0-5); Hematocrit 35.7 % (37-47); Hemoglobin 11.7 g/dL (12.0-15.0); Lymphocyte # 3.91 X10^3/ul (0.83-4.51); Lymphocyte % 26.9 % (19-41); Mean Corp Hgb Conc 32.8 g/dL (32-36); Mean Corpuscular Hgb 26.8 pg (27.0-32.0); Mean Corpuscular Volume 81.9 fL (81-99); Mean Platelet Vol. 11.1 fl (6.2-12.0); Monocyte# 1.08 X10^3/uL; Monocyte% 7.4 % (0-10); NRBC Flagged by Analyzer 0 % (0-5); Neutrophil # 8.58 X10^3/uL (2.7-7.7); Neutrophil % 59.1 % (47-70); Platelet Count 478 K/mm3 (150-450); RBC Distribution Width CV 13.8 % (11.6-14.6); RBC Distribution Width SD 40.9 fl (35.1-43.9); Red Blood Count 4.36 M/mm3 (4.2-5.4); White Blood Count 14.5 K/mm3 (4.4-11.0)
[2021-03-27 17:30] LABS: ALB/GLOB Ratio 1.1 RATIO (0.9-2.4); AST(SGOT) 20 U/L (15-37); Alanine Aminotransfer ALT/SGPT 33 U/L (13-56); Alkaline Phosphatase 110 U/L (45-117); Anion Gap 13 (5-15); BUN 10 mg/dL (7-18); BUN/Creat Ratio 11.2 RATIO (10-20); Calcium,Total 9.2 mg/dL (8.5-10.1); Chloride 97 mmol/L (98-107); Creatinine, Serum 0.89 mg/dL (0.55-1.02); EST Glomerular Filtration Rate 74 mL/min (>60); Est Glom Filt Rate - Afr Amer 89 mL/min (>60); Globulin 3.7 g/dL (2.2-4.2); Glucose 145 mg/dL (74-106); Protein, Total 7.7 g/dL (6.4-8.2); Sodium Level 133 mmol/L (136-145)
== END ==
PROVIDERS: PCP Family Medicine Geriatric Medicine; Visit Provider Family Medicine Geriatric Medicine
DX: E11.65 Type 2 diabetes mellitus with hyperglycemia (principal); R53.83 Other fatigue
CPT/HCPCS: 36415; 80053; 84443; 85025

== ENCOUNTER 2021-04-15 18:04 | Emergency (ER) | payer MEDICARE, MEDICAID, SELFPAY ==
[2021-04-15 18:05] VITALS: BP 172/94; PULSE 76; RESP 18; TEMP 37; O2SAT 96; BMI 35.8
--- NOTE | 2021-04-15 18:28 | EX.ED.VIS.HA ---
HPI History of Present Illness Chief Complaint: Headache Informant: patient Onset/Context/Timing Onset: Days (3) Context: Gradual Timing: Continuous Quality -Headache: Positive for Similar Prior Headaches and Throbbing Current Severity: Severe Maximum Severity: Severe Worsened by: light and noise Relieved by: nothing; tried NSAID only Associated Symptoms/Injury Associated Symptoms: Positive for Nausea, Tingling (bilat simultaneously, hands), Blurred Vision and Photophobia; Negative for Vomiting Injury - FLOWERS: Negative for Direct Trauma Narrative Narrative: Patient with a history of migraines, she states she gets them twice weekly and is having one that is lasted 3 days, no known trigger no recent illness or injury. [facility] Medical History Arthritis Bipolar disorder Diabetes GERD (gastroesophageal reflux disease) H/O emotional problems High blood pressure High cholesterol HTN (hypertension) Hyperlipidemia split personality disorder Vision problems Home Medications sertraline 50 mg tablet 100 mg PO DAILY tab 03/16/19 [History Last Taken Unknown] naproxen 500 mg PO BID PRN PRN #20 tab 05/30/19 [Rx Last Taken Unknown] amlodipine 10 mg tablet 10 mg PO DAILY #90 tab 08/29/19 [Rx Last Taken Unknown] gemfibrozil 600 mg tablet 600 mg PO BID #60 tab 11/20/19 [Rx Last Taken Unknown] hydrochlorothiazide 25 mg tablet 25 mg PO DAILY #60 tab 11/20/19 [Rx Last Taken Unknown] omeprazole 40 mg capsule,delayed release 40 mg PO DAILY #60 cap 11/20/19 [Rx Last Taken Unknown] sertraline 50 mg PO DAILY 12/04/20 [History Last Taken Unknown] ondansetron 4 mg PO Q8H 4 Days #12 tab 02/27/21 [Rx Last Taken Unknown] atorvastatin 40 mg PO DAILY 04/15/21 [History Last Taken Unknown] lamotrigine 200 mg PO DAILY 04/15/21 [History Last Taken Unknown] levocetirizine 5 mg PO DAILY 04/15/21 [History Last Taken Unknown] lisinopril-hydrochlorothiazide 20 - 25 tab PO DAILY 04/15/21 [History Last Taken Unknown] metformin 1,000 mg PO BID 04/15/21 [History Last Taken Unknown] trazodone 150 mg PO DAILY 04/15/21 [History Last Taken Unknown] Allergy/AdvReac Type Severity Reaction Status Date / Time No Known Allergies Allergy Verified 04/15/21 18:09 Family History Other Anxiety Arthritis Cancer Cervical cancer Depression Heart disease High cholesterol Hypertension Mental disorder Psychiatric care Suicide attempt Surgical History No history of previous surgery Social History Smoking Status: Former smoker alcohol intake: never substance use type: does not use what type of physical activity do you participate in: none ROS ROS ED Constitutional Constitutional ED: Denies chills or fever(s) Eyes Eyes: Reports blurry vision; Denies diplopia ENT ENT ED: Denies ear pain or sore throat Cardiovascular Cardiovascular: Denies chest pain or palpitations Respiratory/Chest Respiratory/Chest: Denies cough or dyspnea Gastrointestinal Gastrointestinal: Reports nausea and vomiting; Denies abdominal pain or diarrhea Genitourinary Genitourinary ED: Denies dysuria or urinary frequency Musculoskeletal Musculoskeletal: Denies back pain or myalgias Integumentary Denies abscess or rash Neurologic Neurologic: Reports headache(s); Denies paresthesias or weakness EXAM Physical Exam Const Vital Signs: 04/15/21 18:05 04/15/21 19:09 04/15/21 19:15 Temperature 98.6 F Temperature Source Temporal Pulse Rate 76 Respiratory Rate 18 Blood Pressure 172/94 H 142/75 H Blood Pressure Mean 120 97 Pulse Ox 96 94 97 Oxygen Delivery Method Room Air Room Air HEENT Reports normocephalic and moist mucous membranes atraumatic Eyes PERRL, EOMs intact bilaterally and conjunctivae normal Eyes Narrative: photophobia Neck no lymphadenopathy, supple and no meningeal signs Resp normal respiratory effort and clear to auscultation bilaterally GI non-tender and non-distended Palpation: soft Extremity normal to inspection and full ROM Neuro oriented x3 and CN's II-XII intact bilaterally Sensorium / Orientation: awake and alert Speech: speech normal Gait (Neuro): normal gait Motor Exam: strength 5/5 throughout Psych mental status grossly normal Skin Lesions: no lesions Rashes: no rashes MDM MDM MDM Narrative Medical decision making narrative: After treatment with IV fluids, Toradol, Compazine, patient is feeling much better, she states the headache is still there a little, but not nearly to the degree it was before. She was offered more medication, but states she is ready to go home and you helped a great deal. Suspect a migraine that she can follow-up with or return if worse, she is comfortable with that plan. Discharge Plan Triage Chief Complaint: Headache ED Provider: Santiago Agrawal Dx/Rx/DC Orders Clinical Impression: Headache, migraine Instructions: ED, Migraine (Classical) Prescriptions: No Action sertraline [Zoloft] 50 mg tablet 100 mg PO DAILY RF: 0 naproxen 500 MG tablet 500 mg PO BID PRN PRN (Reason: Pain Score 1-10/10) Qty: 20 RF: 0 sertraline 50 MG tablet 50 mg PO DAILY RF: 0 ondansetron 4 mg tablet,disintegrating 4 mg PO Q8H 4 Days Qty: 12 RF: 0 atorvastatin 40 mg tablet 40 mg PO DAILY RF: 0 metformin 500 mg tablet 1,000 mg PO BID RF: 0 lamotrigine 200 mg tablet 200 mg PO DAILY RF: 0 trazodone 150 mg tablet 150 mg PO DAILY RF: 0 lisinopril-hydrochlorothiazide 20-25 mg tablet 20 - 25 tab PO DAILY RF: 0 levocetirizine 5 mg tablet 5 mg PO DAILY RF: 0 amlodipine 10 mg tablet 10 mg PO DAILY Qty: 90 RF: 1 gemfibrozil 600 mg tablet 600 mg PO BID Qty: 60 RF: 1 hydrochlorothiazide 25 mg tablet 25 mg PO DAILY Qty: 60 RF: 1 omeprazole 40 mg capsule,delayed release(DR/EC) 40 mg PO DAILY Qty: 60 RF: 1 Primary Care Provider: Julian Mendoza Chi Referrals: Julian Mendoza Chi, MD [Primary Care Provider] - 3-5 Days if not improving Disposition Disposition: Home, Self Care
[2021-04-15] MEDS: proCHLORPERazine 10 MG/2 ML Vial IV (18:46)
[2021-04-15] MEDS: Ketorolac 15 MG/ML Vial IV (18:46)
[2021-04-15] MEDS: 0.9% Normal Saline 1,000 ML 999 ML IV (18:47)
[2021-04-15 19:09] VITALS: BP 142/75; O2SAT 94
[2021-04-15 19:15] VITALS: O2SAT 97
[2021-04-15 20:07] VITALS: BP 156/92; PULSE 78; RESP 16; O2SAT 95
== END 2021-04-15 20:08 | disposition home or self-care (01) ==
PROVIDERS: Emergency Provider Emergency Medicine; PCP Family Medicine Geriatric Medicine
DX: G43.909 Migraine, unspecified, not intractable, without status migrainosus (principal); M19.90 Unspecified osteoarthritis, unspecified site; F31.9 Bipolar disorder, unspecified; E11.9 Type 2 diabetes mellitus without complications; K21.9 Gastro-esophageal reflux disease without esophagitis; I10 Essential (primary) hypertension; E78.5 Hyperlipidemia, unspecified; F44.81 Dissociative identity disorder; Z79.899 Other long term (current) drug therapy; Z79.84 Long term (current) use of oral hypoglycemic drugs; Z87.891 Personal history of nicotine dependence
CPT/HCPCS: 96361; 96374; 96375; 99285; J7030; A4216

== ENCOUNTER 2021-06-04 21:08 | Emergency (ER) | payer MEDICARE, MEDICAID, SELFPAY ==
[2021-06-04 21:09] VITALS: BP 140/93; PULSE 95; RESP 16; TEMP 36.4; O2SAT 98; BMI 35.1
--- NOTE | 2021-06-04 23:33 | EX.ED.VIS.PS ---
HPI HPI - Psych History of Present Illness Chief Complaint: Mental Health Detail of Chief Complaint: Hallucinations and paranoia Informant: patient Narrative Narrative: Patient presents to the emergency department with complaint of increased stressors. She has psychiatric history and has not taken her medications over the last 2 days. Patient has had multiple losses recently including her father who of Covid in January. Patient then went to live with her sister because her biological mom kicked her out of the house. Patient having issues with her son who was disrespectful. She denies feeling suicidal or homicidal. Patient started complaining of tactile hallucinations of bugs crawling on her skin. She is feeling paranoid and feels like people are out to get her and they do not want associated with her. She denies feeling homicidal. Patient sister is with her in the department and has concerns and feels that she would benefit from hospitalization. Patient's last hospitalization was 2 years ago. [facility] Medical History (Updated 06/05/21 @ 05:[address] Shiva Salgado, ) Arthritis Bipolar disorder Diabetes GERD (gastroesophageal reflux disease) H/O emotional problems High blood pressure High cholesterol HTN (hypertension) Hyperlipidemia Schizoid personality disorder split personality disorder Vision problems Home Medications sertraline 50 mg tablet 100 mg PO DAILY tab 03/16/19 [History Last Taken Unknown] amlodipine 10 mg tablet 10 mg PO DAILY #90 tab 08/29/19 [Rx Last Taken Unknown] gemfibrozil 600 mg tablet 600 mg PO BID #60 tab 11/20/19 [Rx Last Taken Unknown] hydrochlorothiazide 25 mg tablet 25 mg PO DAILY #60 tab 11/20/19 [Rx Last Taken Unknown] atorvastatin 40 mg PO DAILY 04/15/21 [History Last Taken Unknown] lamotrigine 200 mg PO DAILY 04/15/21 [History Last Taken Unknown] lisinopril-hydrochlorothiazide 20 - 25 tab PO BID 04/15/21 [History Last Taken Unknown] metformin 1,000 mg PO BID 04/15/21 [History Last Taken Unknown] cholecalciferol (vitamin D3) [Vitamin D3] 10 mcg PO DAILY 06/05/21 [History Last Taken Unknown] omeprazole 40 mg PO DAILY 06/05/21 [History Last Taken Unknown] polysaccharide iron complex [Ferrex 150] 150 mg PO DAILY 06/05/21 [History Last Taken Unknown] potassium 20 PO DAILY 06/05/21 [History Last Taken Unknown] sertraline 150 mg PO DAILY 06/05/21 [History Last Taken Unknown] sumatriptan succinate [Imitrex] 100 mg PO DAILY PRN PRN 06/05/21 [History Last Taken Unknown] trazodone 300 mg PO QHS 06/05/21 [History Last Taken Unknown] Allergy/AdvReac Type Severity Reaction Status Date / Time No Known Allergies Allergy Verified 06/04/21 21:09 Family History Other Anxiety Arthritis Cancer Cervical cancer Depression Heart disease High cholesterol Hypertension Mental disorder Psychiatric care Suicide attempt Surgical History No history of previous surgery Social History Smoking Status: Former smoker alcohol intake: never substance use type: does not use what type of physical activity do you participate in: none ROS ROS ED Constitutional Constitutional ED: Reports systems reviewed and no addt'l complaints, except as documented; Denies body ache(s), change in weight or chills Eyes Eyes: Denies acute decrease in peripheral vision, change in vision, double vision or loss of vision ENT ENT ED: Reports none; Denies ear pain, lip swelling, loss taste/smell, neck pain, otalgia or sore throat Cardiovascular Cardiovascular: Reports none; Denies abdominal pain, chest pain with activity, leg edema, lightheadedness, palpitations, rapid heart rate or syncope Respiratory/Chest Respiratory/Chest: Reports none; Denies change in mental status, dry cough, dyspnea, hemoptysis, shortness of breath at rest or shortness of breath with exertion Gastrointestinal Gastrointestinal: Reports none; Denies abdominal pain, change in stool character, diarrhea, hematemesis, hematochezia, melena, rectal bleeding or vomiting Genitourinary Genitourinary ED: Reports none; Denies abdominal discomfort, anuria, dysuria, genital pain or polyuria Musculoskeletal Musculoskeletal: Reports none; Denies arthralgias, back pain, difficulty walking, extremity pain, muscle weakness or myalgias Integumentary Reports none; Denies abscess or rash Neurologic Neurologic: Reports none; Denies abnormal gait, confusion, focal weakness, frequent falls, headache(s), loss of vision, numbness, paresthesias, radicular pain, vertigo or weakness Psychiatric Psychiatric: Reports systems reviewed and no addt'l complaints, except as documented, none, anxiety, depression and other Details: Hallucinations ; Denies behavioral changes, confusion, difficulty concentrating, hallucinations, suicidal ideation, suicidal thoughts, tactile hallucinations or visual hallucinations Endocrine Endocrinology: Denies none, cold intolerance, excessive sweating, fatigue or heat intolerance Hematologic/Lymphatic Hematologic/Lymphatic: Reports none; Denies anemia, easy bleeding or easy bruising Allergic/Immunologic Allergic/Immunologic ED: Denies as per HPI, none, lip swelling, mouth swelling, throat swelling, tongue swelling or hives EXAM Physical Exam Const Vital Signs: 06/04/21 21:09 06/05/21 00:08 06/05/21 03:40 Temperature 97.5 F L Temperature Source Temporal Pulse Rate 95 80 Respiratory Rate 16 16 Blood Pressure 140/93 H Blood Pressure Mean 108 Pulse Ox 98 99 Oxygen Delivery Method Room Air Room Air Room Air Positive well nourished and well developed General Appearance ED: well developed and NAD HEENT Reports TM's clear and moist mucous membranes normocephalic and atraumatic; Negative for trauma or tenderness Tympanic Membrane ED: Yes TM's clear Eyes PERRL and EOMs intact bilaterally General Eye ED: Negative for pale conjunctiva or scleral icterus Neck no lymphadenopathy, supple and no JVD General: Negative for tenderness Chest Wall inspection of chest normal and palpation of chest normal Chest: Negative for tenderness Resp normal respiratory effort and clear to auscultation bilaterally Effort and Inspection: Negative for respiratory distress or pain with movement Auscultation: Negative for rhonchi, wheezes or diminished lung sounds Cardio regular rate, regular rhythm, S1 normal heart sound, S2 normal heart sound and no murmurs Peripheral Pulses: pulses 2+ throughout GI normal to inspection, nondistended, normoactive bowel sounds, soft to palpation, non-tender, non-distended and no masses Back/Spine no CVA tenderness and no thoracic nor lumbar tenderness Extremity normal to inspection General Extremety ED: Negative for edema General Extremity: Negative for edema Neuro oriented x3, CN's II-XII intact bilaterally, no sensory deficits noted and gait normal Sensorium / Orientation: awake, alert, oriented to person, oriented to place and oriented to time Motor Exam: strength 5/5 throughout and strength abnormal Psych mental status grossly normal Skin no rashes or lesions noted and no wounds MDM MDM MDM Narrative Medical decision making narrative: Patient was evaluated by crisis. It is felt that she would benefit from inpatient stabilization. Plan is to transfer patient to psychiatric facility for definitive care of her psychosis. Lab Data Attestation: I reviewed the patient's lab results. Labs: Laboratory Results - last 24 hr 06/04/21 06/04/21 06/04/21 23:45 23:45 23:45 WBC 11.2 H RBC 4.05 L Hgb 10.5 L Hct 32.9 L MCV 81.2 MCH 25.9 L MCHC 31.9 L RDW Std Deviation 38.4 RDW Coeff of Elliot 13.0 Plt Count 393 MPV 9.8 Immature Gran % (Auto) 1.300 H Neut % (Auto) 55.2 Lymph % (Auto) 29.1 [place] % (Auto) 8.1 Eos % (Auto) 5.8 H Baso % (Auto) 0.5 Absolute Neuts (auto) 6.2 Absolute Lymphs (auto) 3.25 Nucleated RBC % 0 Sodium 134 L Potassium 2.9 L Chloride 99 Carbon Dioxide 28.0 Anion Gap 7 BUN 4 L Creatinine 0.81 Estim Creat Clear Calc 81.41 Est GFR (MDRD) Af Amer 100 Est GFR (MDRD) Non-Af 83 BUN/Creatinine Ratio 5.0 L Glucose 136 H Calcium 8.2 L Serum , Qual Urine Opiates Screen Urine Methadone Screen Ur Barbiturates Screen Ur Phencyclidine Scrn Ur Amphetamines Screen U Methamphetamin-MDMA U Benzodiazepines Scrn Urine Cocaine Screen U Cannabinoids Screen Ur Drug Screen Comment Ethyl Alcohol < 3.0 06/04/21 06/04/21 23:45 23:45 WBC RBC Hgb Hct MCV MCH MCHC RDW Std Deviation RDW Coeff of Elliot Plt Count MPV Immature Gran % (Auto) Neut % (Auto) Lymph % (Auto) [place] % (Auto) Eos % (Auto) Baso % (Auto) Absolute Neuts (auto) Absolute Lymphs (auto) Nucleated RBC % Sodium Potassium Chloride Carbon Dioxide Anion Gap BUN Creatinine Estim Creat Clear Calc Est GFR (MDRD) Af Amer Est GFR (MDRD) Non-Af BUN/Creatinine Ratio Glucose Calcium Serum , Qual NEGATIVE Urine Opiates Screen NEGATIVE Urine Methadone Screen NEGATIVE Ur Barbiturates Screen NEGATIVE Ur Phencyclidine Scrn NEGATIVE Ur Amphetamines Screen NEGATIVE U Methamphetamin-MDMA NEGATIVE U Benzodiazepines Scrn NEGATIVE Urine Cocaine Screen NEGATIVE U Cannabinoids Screen NEGATIVE Ur Drug Screen Comment Ethyl Alcohol Discharge Plan Triage Chief Complaint: Mental Health ED Provider: Shiva Salgado Dx/Rx/DC Orders Clinical Impression: Psychosis Prescriptions: No Action sertraline [Zoloft] 50 mg tablet 100 mg PO DAILY RF: 0 atorvastatin 40 mg tablet 40 mg PO DAILY RF: 0 metformin 500 mg tablet 1,000 mg PO BID RF: 0 lamotrigine 200 mg tablet 200 mg PO DAILY RF: 0 lisinopril-hydrochlorothiazide 20-25 mg tablet 20 - 25 tab PO BID RF: 0 sumatriptan succinate [Imitrex] 100 mg Tablet 100 mg PO DAILY PRN PRN (Reason: pain) RF: 0 polysaccharide iron complex [Ferrex 150] 150 mg iron Capsule 150 mg PO DAILY RF: 0 sertraline 100 mg Tablet 150 mg PO DAILY RF: 0 omeprazole 40 mg Capsule,Delayed Release(Dr/Ec) 40 mg PO DAILY RF: 0 trazodone 100 mg Tablet 300 mg PO QHS RF: 0 cholecalciferol (vitamin D3) [Vitamin D3] 10 mcg (400 unit) Capsule 10 mcg PO DAILY RF: 0 potassium 20 mg Tablet,Chewable 20 PO DAILY RF: 0 amlodipine 10 mg tablet 10 mg PO DAILY Qty: 90 RF: 1 gemfibrozil 600 mg tablet 600 mg PO BID Qty: 60 RF: 1 hydrochlorothiazide 25 mg tablet 25 mg PO DAILY Qty: 60 RF: 1 Primary Care Provider: Julian Mendoza Chi Referrals: Julian Mendoza Chi, MD [Primary Care Provider] - Disposition Disposition: Psychiatric Hospital or Unit
[2021-06-04 23:54] LABS: Absolute Lymphocyte Count 3.25 X10^3/uL (0.83-4.51); Absolute Neutrophil Count 6.2 X10^3/uL (2.0-7.7); Basophil# 0.06 X10^3/uL; Basophil% 0.5 % (0-1); Eosinophil# 0.65 X10^3/uL; Eosinophils% 5.8 % (0-5); Hematocrit 32.9 % (37-47); Hemoglobin 10.5 g/dL (12.0-15.0); Lymphocyte # 3.25 X10^3/ul (0.83-4.51); Lymphocyte % 29.1 % (19-41); Mean Corp Hgb Conc 31.9 g/dL (32-36); Mean Corpuscular Hgb 25.9 pg (27.0-32.0); Mean Corpuscular Volume 81.2 fL (81-99); Mean Platelet Vol. 9.8 fl (6.2-12.0); Monocyte% 8.1 % (0-10); NRBC Flagged by Analyzer 0 % (0-5); Neutrophil # 6.17 X10^3/uL (2.7-7.7); Neutrophil % 55.2 % (47-70); Platelet Count 393 K/mm3 (150-450); RBC Distribution Width SD 38.4 fl (35.1-43.9); Red Blood Count 4.05 M/mm3 (4.2-5.4); White Blood Count 11.2 K/mm3 (4.4-11.0)
[2021-06-05 00:04] LABS: Internal QC Validated? YES +Cl - CLEAR BKGD; Pregnancy, Serum, hCG Quali. NEGATIVE Negative
[2021-06-05 00:07] LABS: Amphetamine Urine VISTA NEGATIVE (<1000 ng/mL); Barbiturate Urine VISTA NEGATIVE (< 200 ng/mL); Benzodiazepine Urine VISTA NEGATIVE (< 200 ng/mL); Cocaine Urine VISTA NEGATIVE (< 300 ng/mL); Ecstacy Urine VISTA NEGATIVE (< 500 ng/mL); Methadone Urine VISTA NEGATIVE (< 300 ng/mL); PCP Urine VISTA NEGATIVE (< 25 ng/mL); THC Urine VISTA NEGATIVE (< 50 ng/mL); Vista UDS pH Range 6
[2021-06-05 00:08] LABS: Anion Gap 7 (5-15); BUN 4 mg/dL (7-18); Calcium,Total 8.2 mg/dL (8.5-10.1); Chloride 99 mmol/L (98-107); Creatinine, Serum 0.81 mg/dL (0.55-1.02); EST Glomerular Filtration Rate 83 mL/min (>60); Est Glom Filt Rate - Afr Amer 100 mL/min (>60); Estimated Creatinine Clearance 81.41 ml/min; Glucose 136 mg/dL (74-106); Potassium 2.9 mmol/L (3.5-5.1); Sodium Level 134 mmol/L (136-145)
[2021-06-05 00:14] LABS: Alcohol, Blood (Medical)-Serum < 3.0 mg/dL
--- NOTE | 2021-06-05 00:32 | NURSING ---
CALLED CRISIS AT 0032
[2021-06-05] MEDS: Potassium Chloride Oral Tablet 20 MEQ 40 MEQ PO (02:07)
[2021-06-05 03:40] VITALS: PULSE 80; RESP 16; O2SAT 99
[2021-06-05 06:41] VITALS: RESP 17
--- NOTE | 2021-06-05 07:07 | EKG12_ITS ---
Test Reason : MENTAL HEALTH Blood Pressure : / mmHG Vent. Rate : 078 BPM Atrial Rate : 078 BPM P-R Int : 172 ms QRS Dur : 108 ms QT Int : 428 ms P-R-T Axes : 017 003 019 degrees QTc Int : 487 ms Normal sinus rhythm Incomplete left bundle branch block Prolonged QT Abnormal ECG Confirmed by DEVAN LONGO, ANNA ([id number]), editor city [place] ([id number]) on 06/09/2021 12:18:36 PM Referred By: YENIFER Confirmed By:ELSIE HARTMAN MD
[2021-06-05 07:15] VITALS: BP 144/95; PULSE 87; RESP 16; O2SAT 95
--- NOTE | 2021-06-05 08:24 | NURSING ---
FAXED EKG AND PINK SLIP TO [facility], PER ERIC WITH CRISIS PT HAS BEEN ACCEPTED PENDING FAX. SHE WILL CALL BACK WITH ACCEPTANCE INFORMATION
--- NOTE | 2021-06-05 09:09 | ED.RN ---
susan green calls to ask about pt behavior while in ed. reports they will call back after speaking with the
[2021-06-05] MEDS: Potassium Chloride Oral Tablet 20 MEQ PO (09:43)
[2021-06-05] MEDS: Iron Polysaccharide Complex 150 MG CAPSULE PO (09:43)
[2021-06-05] MEDS: Lisinopril 20 MG Tablet PO (09:43)
[2021-06-05] MEDS: Sertraline 100 MG Tablet 150 MG PO (09:44)
[2021-06-05] MEDS: amLODIPine 10 MG Tablet PO (09:44)
[2021-06-05] MEDS: hydroCHLOROthiazide 25 MG Tablet PO (09:44)
[2021-06-05] MEDS: metFORMIN HCl 1,000 MG Tablet 1000 MG PO (09:44)
[2021-06-05] MEDS: lamoTRIgine 100 MG Tablet 200 MG PO (09:44)
[2021-06-05] MEDS: Atorvastatin Calcium 40 MG Tablet PO (09:44)
[2021-06-05 11:42] VITALS: BP 129/71; PULSE 79; RESP 16; TEMP 37.2; O2SAT 98
[2021-06-05 11:44] VITALS: BP 129/71; PULSE 79; RESP 16; TEMP 37.2; O2SAT 98
== END 2021-06-05 11:59 ==
PROVIDERS: Emergency Provider Emergency Medicine; PCP Family Medicine Geriatric Medicine
DX: F22 Delusional disorders (principal); E11.9 Type 2 diabetes mellitus without complications; E78.00 Pure hypercholesterolemia, unspecified; E78.5 Hyperlipidemia, unspecified; I10 Essential (primary) hypertension; K21.9 Gastro-esophageal reflux disease without esophagitis; Z87.891 Personal history of nicotine dependence; Z79.899 Other long term (current) drug therapy; Z79.84 Long term (current) use of oral hypoglycemic drugs
CPT/HCPCS: 80048; 80307; 82077; 84703; 85025; 93005; 99285

== ENCOUNTER → 2021-06-25 15:27 | Outpatient (CLI) | payer MEDICARE, MEDICAID, SELFPAY ==
[2021-06-25 17:18] LABS: Absolute Neutrophil Count 6.2 X10^3/uL (2.0-7.7); Basophil% 0.9 % (0-1); Eosinophil# 0.57 X10^3/uL; Eosinophils% 5.2 % (0-5); Hematocrit 32.8 % (37-47); Hemoglobin 10.6 g/dL (12.0-15.0); Lymphocyte % 30.3 % (19-41); Mean Corp Hgb Conc 32.3 g/dL (32-36); Mean Corpuscular Hgb 26.6 pg (27.0-32.0); Mean Corpuscular Volume 82.4 fL (81-99); Mean Platelet Vol. 10.8 fl (6.2-12.0); Monocyte# 0.62 X10^3/uL; Monocyte% 5.7 % (0-10); NRBC Flagged by Analyzer 0 % (0-5); Neutrophil # 6.23 X10^3/uL (2.7-7.7); Neutrophil % 57.3 % (47-70); Platelet Count 419 K/mm3 (150-450); RBC Distribution Width CV 14.5 % (11.6-14.6); RBC Distribution Width SD 42.5 fl (35.1-43.9); Red Blood Count 3.98 M/mm3 (4.2-5.4); White Blood Count 10.9 K/mm3 (4.4-11.0)
[2021-06-25 17:47] LABS: ALB/GLOB Ratio 1.1 RATIO (0.9-2.4); AST(SGOT) 14 U/L (15-37); Alanine Aminotransfer ALT/SGPT 23 U/L (13-56); Albumin, Serum 3.8 g/dL (3.2-5.0); Alkaline Phosphatase 87 U/L (45-117); Anion Gap 9 (5-15); BUN 9 mg/dL (7-18); BUN/Creat Ratio 10.5 RATIO (10-20); Calcium,Total 8.8 mg/dL (8.5-10.1); Chloride 100 mmol/L (98-107); Creatinine, Serum 0.86 mg/dL (0.55-1.02); EST Glomerular Filtration Rate 77 mL/min (>60); Est Glom Filt Rate - Afr Amer 93 mL/min (>60); Globulin 3.4 g/dL (2.2-4.2); Glucose 107 mg/dL (74-106); Potassium 3.6 mmol/L (3.5-5.1); Protein, Total 7.2 g/dL (6.4-8.2); Sodium Level 134 mmol/L (136-145); Thyroid Stim Hormone (TSH) 2.27 uIU/mL (0.358-3.74)
== END ==
PROVIDERS: PCP Family Medicine Geriatric Medicine; Visit Provider Family Medicine Geriatric Medicine
DX: E11.65 Type 2 diabetes mellitus with hyperglycemia (principal); I10 Essential (primary) hypertension
CPT/HCPCS: 36415; 80053; 84443; 85025

== ENCOUNTER → 2021-07-03 16:13 | Outpatient (CLI) | payer MEDICARE, MEDICAID, SELFPAY ==
[2021-07-03 17:37] LABS: Absolute Lymphocyte Count 3.42 X10^3/uL (0.83-4.51); Absolute Neutrophil Count 7.2 X10^3/uL (2.0-7.7); Basophil# 0.09 X10^3/uL; Basophil% 0.7 % (0-1); Eosinophil# 0.61 X10^3/uL; Eosinophils% 4.9 % (0-5); Hematocrit 33.3 % (37-47); Lymphocyte # 3.42 X10^3/ul (0.83-4.51); Lymphocyte % 27.7 % (19-41); Mean Corpuscular Hgb 26.7 pg (27.0-32.0); Mean Corpuscular Volume 80.8 fL (81-99); Mean Platelet Vol. 10.6 fl (6.2-12.0); Monocyte# 0.81 X10^3/uL; Monocyte% 6.6 % (0-10); NRBC Flagged by Analyzer 0 % (0-5); Neutrophil # 7.21 X10^3/uL (2.7-7.7); Neutrophil % 58.6 % (47-70); Platelet Count 496 K/mm3 (150-450); RBC Distribution Width CV 13.8 % (11.6-14.6); RBC Distribution Width SD 40.8 fl (35.1-43.9); RET-HE 26.9 pg (30-35); Red Blood Count 4.12 M/mm3 (4.2-5.4); White Blood Count 12.3 K/mm3 (4.4-11.0)
[2021-07-03 17:59] LABS: Vitamin B12 239 pg/mL (211-911)
[2021-07-03 18:09] LABS: Ferritin 9 ng/mL (8-252); Iron 33 ug/dL (50-170); Iron Binding Capacity,Total 421 ug/dL (250-450); PERCENT IRON SATURATION 7.8 % (15.0-55.0)
== END ==
PROVIDERS: PCP Family Medicine Geriatric Medicine; Visit Provider Family Medicine Geriatric Medicine
DX: D64.9 Anemia, unspecified (principal)
CPT/HCPCS: 36415; 82607; 82728; 82746; 83540; 83550; 85025; 85045

== ENCOUNTER → 2021-07-31 12:05 | Outpatient (CLI) | payer MEDICARE, MEDICAID, SELFPAY ==
[2021-07-31 12:38] LABS: Absolute Lymphocyte Count 1.82 X10^3/uL (0.83-4.51); Absolute Neutrophil Count 3.7 X10^3/uL (2.0-7.7); Basophil# 0.06 X10^3/uL; Basophil% 0.9 % (0-1); Eosinophil# 0.38 X10^3/uL; Eosinophils% 5.9 % (0-5); Hematocrit 30.8 % (37-47); Hemoglobin 9.8 g/dL (12.0-15.0); Lymphocyte # 1.82 X10^3/ul (0.83-4.51); Lymphocyte % 28.2 % (19-41); Mean Corp Hgb Conc 31.8 g/dL (32-36); Mean Corpuscular Hgb 26.2 pg (27.0-32.0); Mean Corpuscular Volume 82.4 fL (81-99); Mean Platelet Vol. 10.2 fl (6.2-12.0); Monocyte# 0.48 X10^3/uL; Monocyte% 7.4 % (0-10); NRBC Flagged by Analyzer 0 % (0-5); Neutrophil # 3.68 X10^3/uL (2.7-7.7); Neutrophil % 57.1 % (47-70); Platelet Count 356 K/mm3 (150-450); RBC Distribution Width CV 14.6 % (11.6-14.6); RBC Distribution Width SD 42.7 fl (35.1-43.9); Red Blood Count 3.74 M/mm3 (4.2-5.4); White Blood Count 6.5 K/mm3 (4.4-11.0)
[2021-07-31 13:14] LABS: Ferritin 5 ng/mL (8-252); Iron 24 ug/dL (50-170); Iron Binding Capacity,Total 451 ug/dL (250-450)
== END ==
PROVIDERS: PCP Family Medicine Geriatric Medicine; Visit Provider Family Medicine Geriatric Medicine
DX: D64.9 Anemia, unspecified (principal)
CPT/HCPCS: 36415; 82728; 83540; 83550; 85025

== ENCOUNTER 2021-08-26 16:07 | Emergency (ER) | payer MEDICARE, MEDICAID, SELFPAY ==
[2021-08-26] VITALS (8 sets, daily range): BP systolic 160–188; BP diastolic 80–112; PULSE 85–87; RESP 15–18; TEMP 36.3–36.9; O2SAT 95–100; BMI 34.9
[2021-08-26 17:03] LABS: Absolute Lymphocyte Count 3.33 X10^3/uL (0.83-4.51); Absolute Neutrophil Count 8.2 X10^3/uL (2.0-7.7); Basophil# 0.09 X10^3/uL; Basophil% 0.7 % (0-1); Eosinophil# 0.42 X10^3/uL; Eosinophils% 3.3 % (0-5); Hematocrit 33.8 % (37-47); Hemoglobin 10.6 g/dL (12.0-15.0); Lymphocyte # 3.33 X10^3/ul (0.83-4.51); Lymphocyte % 25.8 % (19-41); Mean Corp Hgb Conc 31.4 g/dL (32-36); Mean Corpuscular Hgb 25.1 pg (27.0-32.0); Mean Corpuscular Volume 80.1 fL (81-99); Mean Platelet Vol. 10.3 fl (6.2-12.0); Monocyte# 0.77 X10^3/uL; NRBC Flagged by Analyzer 0 % (0-5); Neutrophil % 63.3 % (47-70); Platelet Count 465 K/mm3 (150-450); RBC Distribution Width CV 14.6 % (11.6-14.6); RBC Distribution Width SD 42.3 fl (35.1-43.9); Red Blood Count 4.22 M/mm3 (4.2-5.4); White Blood Count 12.9 K/mm3 (4.4-11.0)
--- NOTE | 2021-08-26 17:10 | CM.ED ---
Addendum entered by Yessica Garcia 08/26/21 17:13: Yessica Garcia LIA JAVED Original Note: REESE Bustillo, RN in Triage, advised that [facility]. REESE called the [facility] and spoke to Nicky. Nicky advised that patient wants to be admitted to psych and that she will complete the assessment. ED needs to provide medical clearance. Nicky said that patient voices concern that she will not be safe if discharged home. REESE asked if patient needs a sitter and Nicky said that patient does NOT need a sitter. REESE updated Veronique PATEL on patient's sitter status per [facility]. Plan: Placement per [facility]
[2021-08-26 17:12] LABS: Internal QC Validated? YES +Cl - CLEAR BKGD; Pregnancy, Serum, hCG Quali. NEGATIVE Negative
[2021-08-26 17:16] LABS: Anion Gap 8 (5-15); BUN 9 mg/dL (7-18); BUN/Creat Ratio 11.6 RATIO (10-20); Calcium,Total 9.5 mg/dL (8.5-10.1); Chloride 107 mmol/L (98-107); Creatinine, Serum 0.78 mg/dL (0.55-1.02); EST Glomerular Filtration Rate 86 mL/min (>60); Est Glom Filt Rate - Afr Amer 104 mL/min (>60); Estimated Creatinine Clearance 84.55 ml/min; Glucose 104 mg/dL (74-106); Potassium 4.2 mmol/L (3.5-5.1); Sodium Level 141 mmol/L (136-145)
--- NOTE | 2021-08-26 17:18 | EDS_ITS ---
HPI History of Present Illness Chief Complaint: Suicidal Detail of Chief Complaint: Suicidal ideation Informant: patient Narrative Narrative: Patient presents to the emergency department complaint of depression and suicidal ideation. Patient states that she has been feeling progressively more depressed over the last 2 months or so. Patient does not feel safe going home. She is having thoughts of self-harm. She states that she has made multiple attempts to harm her self in the past by taking overdoses and cutting herself. She cannot remember the last time she was admitted to a psychiatric facility. Patient states that she has been compliant with her medications. She denies any visual hallucinations. She denies being homicidal. Patient states that she is angry and she is not sure why. She has lost interest in things. Prior similar symptoms: Yes PFSH PFS Medical History (Updated 08/26/21 @ 22:[address] Shiva Salgado, DO) Arthritis Bipolar disorder Diabetes GERD (gastroesophageal reflux disease) H/O emotional problems High blood pressure High cholesterol HTN (hypertension) Hyperlipidemia Schizoid personality disorder split personality disorder Vision problems Home Medications amlodipine 10 mg tablet 10 mg PO DAILY #90 tab 08/29/19 [Rx Last Taken Unknown] atorvastatin 40 mg PO DAILY 04/15/21 [History Last Taken Unknown] lamotrigine [Lamictal] 200 mg PO DAILY 04/15/21 [History Last Taken Unknown] lisinopril-hydrochlorothiazide 20 - 25 tab PO BID 04/15/21 [History Last Taken Unknown] metformin 1,000 mg PO BID 04/15/21 [History Last Taken Unknown] cholecalciferol (vitamin D3) [Vitamin D3] 10 mcg PO DAILY 06/05/21 [History Last Taken Unknown] omeprazole 40 mg PO DAILY 06/05/21 [History Last Taken Unknown] polysaccharide iron complex [Ferrex 150] 150 mg PO DAILY 06/05/21 [History Last Taken Unknown] potassium chloride 20 meq PO DAILY 06/05/21 [History Last Taken Unknown] sumatriptan succinate [Imitrex] 100 mg PO DAILY PRN PRN 06/05/21 [History Last Taken Unknown] gemfibrozil [Lopid] 600 mg PO BID 08/26/21 [History Last Taken Unknown] melatonin 5 mg PO DAILY 08/26/21 [History Last Taken Unknown] Allergy/AdvReac Type Severity Reaction Status Date / Time No Known Allergies Allergy Verified 08/26/21 16:10 Family History Other Anxiety Arthritis Cancer Cervical cancer Depression Heart disease High cholesterol Hypertension Mental disorder Psychiatric care Suicide attempt Surgical History No history of previous surgery Social History Smoking Status: Former smoker alcohol intake: never substance use type: does not use what type of physical activity do you participate in: none ROS ROS ED Constitutional Constitutional ED: Reports systems reviewed and no addt'l complaints, except as documented; Denies body ache(s), change in weight or chills Eyes Eyes: Denies acute decrease in peripheral vision, change in vision, double vision or loss of vision ENT ENT ED: Reports none; Denies ear pain, lip swelling, loss taste/smell, neck pain, otalgia or sore throat Cardiovascular Cardiovascular: Reports none; Denies abdominal pain, chest pain with activity, leg edema, lightheadedness, palpitations, rapid heart rate or syncope Respiratory/Chest Respiratory/Chest: Reports none; Denies change in mental status, dry cough, dyspnea, hemoptysis, shortness of breath at rest or shortness of breath with exertion Gastrointestinal Gastrointestinal: Reports none; Denies abdominal pain, change in stool character, diarrhea, hematemesis, hematochezia, melena, rectal bleeding or vomiting Genitourinary Genitourinary ED: Reports none; Denies abdominal discomfort, anuria, dysuria, genital pain or polyuria Musculoskeletal Musculoskeletal: Reports none; Denies arthralgias, back pain, difficulty walking, extremity pain, muscle weakness or myalgias Integumentary Reports none; Denies abscess or rash Neurologic Neurologic: Reports none; Denies abnormal gait, confusion, focal weakness, frequent falls, headache(s), loss of vision, numbness, paresthesias, radicular pain, vertigo or weakness Psychiatric Psychiatric: Reports systems reviewed and no addt'l complaints, except as documented, none, auditory hallucinations, hallucinations, hopelessness, suicidal ideation and suicidal thoughts; Denies behavioral changes, confusion, difficulty concentrating, tactile hallucinations or visual hallucinations Endocrine Endocrinology: Denies none, cold intolerance, excessive sweating, fatigue or heat intolerance Hematologic/Lymphatic Hematologic/Lymphatic: Reports none; Denies anemia, easy bleeding or easy bruising Allergic/Immunologic Allergic/Immunologic ED: Denies as per HPI, none, lip swelling, mouth swelling, throat swelling, tongue swelling or hives EXAM Physical Exam Const Vital Signs: 08/26/21 16:08 08/26/21 17:07 08/26/21 18:00 Temperature 97.5 F L Temperature Source Temporal Pulse Rate 85 Respiratory Rate 18 16 16 Blood Pressure 188/112 H Blood Pressure Mean 137 Pulse Ox 95 Oxygen Delivery Method Room Air 08/26/21 19:27 08/26/21 20:24 Temperature 98.4 F Temperature Source Temporal Pulse Rate 87 Respiratory Rate 18 17 Blood Pressure 160/80 H Blood Pressure Mean 106 Pulse Ox 98 Oxygen Delivery Method Room Air Positive well nourished and well developed General Appearance ED: well developed and NAD HEENT Reports TM's clear and moist mucous membranes normocephalic and atraumatic; Negative for trauma or tenderness Tympanic Membrane ED: Yes TM's clear Eyes PERRL and EOMs intact bilaterally General Eye ED: Negative for pale conjunctiva or scleral icterus Neck no lymphadenopathy, supple and no JVD General: Negative for tenderness Chest Wall inspection of chest normal and palpation of chest normal Chest: Negative for tenderness Resp normal respiratory effort and clear to auscultation bilaterally Effort and Inspection: Negative for respiratory distress or pain with movement Auscultation: Negative for rhonchi, wheezes or diminished lung sounds Cardio regular rate, regular rhythm, S1 normal heart sound, S2 normal heart sound and no murmurs Peripheral Pulses: pulses 2+ throughout GI normal to inspection, nondistended, normoactive bowel sounds, soft to palpation, non-tender, non-distended and no masses Back/Spine no CVA tenderness and no thoracic nor lumbar tenderness Extremity normal to inspection General Extremety ED: Negative for edema General Extremity: Negative for edema Neuro oriented x3, CN's II-XII intact bilaterally, no sensory deficits noted and gait normal Sensorium / Orientation: awake, alert, oriented to person, oriented to place and oriented to time Motor Exam: strength 5/5 throughout and strength abnormal Psych mental status grossly normal Skin no rashes or lesions noted and no wounds MDM MDM MDM Narrative Medical decision making narrative: Labs essentially unremarkable. Patient medically cleared for transfer to psychiatric facility. Lab Data Attestation: I reviewed the patient's lab results. Labs: Laboratory Results - last 24 hr 08/26/21 08/26/21 08/26/21 16:53 16:53 16:53 WBC 12.9 H RBC 4.22 Hgb 10.6 L Hct 33.8 L MCV 80.1 L MCH 25.1 L MCHC 31.4 L RDW Std Deviation 42.3 RDW Coeff of Elliot 14.6 Plt Count 465 H MPV 10.3 Immature Gran % (Auto) 0.900 Neut % (Auto) 63.3 Lymph % (Auto) 25.8 [place] % (Auto) 6.0 Eos % (Auto) 3.3 Baso % (Auto) 0.7 Absolute Neuts (auto) 8.2 H Absolute Lymphs (auto) 3.33 Nucleated RBC % 0 Sodium 141 Potassium 4.2 Chloride 107 Carbon Dioxide 26.0 Anion Gap 8 BUN 9 Creatinine 0.78 Estim Creat Clear Calc 84.55 Est GFR (MDRD) Af Amer 104 Est GFR (MDRD) Non-Af 86 BUN/Creatinine Ratio 11.6 Glucose 104 Calcium 9.5 Serum , Qual Urine Color Urine Clarity Urine pH Ur Specific [place]once Urine Protein Urine Glucose (UA) Urine Ketones Urine Occult Blood Urine Nitrite Urine Bilirubin Urine Urobilinogen Ur Leukocyte Esterase Urine RBC Urine WBC Ur Squamous Epith Cells Urine Bacteria Urine Mucus Urine Opiates Screen Urine Methadone Screen Ur Barbiturates Screen Ur Phencyclidine Scrn Ur Amphetamines Screen U Methamphetamin-MDMA U Benzodiazepines Scrn Urine Cocaine Screen U Cannabinoids Screen Ur Drug Screen Comment Ethyl Alcohol 6.0 08/26/21 08/26/21 08/26/21 16:53 17:47 17:47 WBC RBC Hgb Hct MCV MCH MCHC RDW Std Deviation RDW Coeff of Elliot Plt Count MPV Immature Gran % (Auto) Neut % (Auto) Lymph % (Auto) [place] % (Auto) Eos % (Auto) Baso % (Auto) Absolute Neuts (auto) Absolute Lymphs (auto) Nucleated RBC % Sodium Potassium Chloride Carbon Dioxide Anion Gap BUN Creatinine Estim Creat Clear Calc Est GFR (MDRD) Af Amer Est GFR (MDRD) Non-Af BUN/Creatinine Ratio Glucose Calcium Serum , Qual NEGATIVE Urine Color Yellow Urine Clarity Sl. Cloudy Urine pH 5.0 Ur Specific [place]once 1.020 Urine Protein Negative Urine Glucose (UA) Normal Urine Ketones Negative Urine Occult Blood 10 H Urine Nitrite Negative Urine Bilirubin Negative Urine Urobilinogen Normal Ur Leukocyte Esterase 25 H Urine RBC 0-5 SEEN Urine WBC 0-5 SEEN Ur Squamous Epith Cells 0-5 SEEN Urine Bacteria 1+ Urine Mucus 0 SEEN Urine Opiates Screen NEGATIVE Urine Methadone Screen NEGATIVE Ur Barbiturates Screen NEGATIVE Ur Phencyclidine Scrn NEGATIVE Ur Amphetamines Screen NEGATIVE U Methamphetamin-MDMA NEGATIVE U Benzodiazepines Scrn NEGATIVE Urine Cocaine Screen NEGATIVE U Cannabinoids Screen NEGATIVE Ur Drug Screen Comment Ethyl Alcohol Discharge Plan Triage Chief Complaint: Suicidal ED Provider: Shiva Salgado Dx/Rx/DC Orders Clinical Impression: Depression, Depression with suicidal ideation Prescriptions: No Action atorvastatin 40 mg tablet 40 mg PO DAILY RF: 0 metformin 500 mg tablet 1,000 mg PO BID RF: 0 lamotrigine [Lamictal] 200 mg tablet 200 mg PO DAILY RF: 0 lisinopril-hydrochlorothiazide 20-25 mg tablet 20 - 25 tab PO BID RF: 0 sumatriptan succinate [Imitrex] 100 mg Tablet 100 mg PO DAILY PRN PRN (Reason: pain) RF: 0 polysaccharide iron complex [Ferrex 150] 150 mg iron Capsule 150 mg PO DAILY RF: 0 omeprazole 40 mg Capsule,Delayed Release(Dr/Ec) 40 mg PO DAILY RF: 0 cholecalciferol (vitamin D3) [Vitamin D3] 10 mcg (400 unit) Capsule 10 mcg PO DAILY RF: 0 potassium chloride 20 mEq tablet,ER particles/crystals 20 meq PO DAILY RF: 0 gemfibrozil [Lopid] 600 mg tablet 600 mg PO BID RF: 0 melatonin 5 mg Tablet 5 mg PO DAILY RF: 0 amlodipine 10 mg tablet 10 mg PO DAILY Qty: 90 RF: 1 Primary Care Provider: Julian Mendoza Chi Referrals: Julian Mendoza Chi, MD [Primary Care Provider] - Disposition Disposition: Psychiatric Hospital or Unit
--- NOTE | 2021-08-26 17:47 | CM.ED ---
REESE Note SW met with patient. He prefers to be called Lukas. SW updated him that the plan is for placement. Patient is in agreement with plan for placement. Patient has had numerous psych placements. REESE will continue to follow. Yessica JAVED
[2021-08-26 18:12] LABS: Amphetamine Urine VISTA NEGATIVE (<1000 ng/mL); Barbiturate Urine VISTA NEGATIVE (< 200 ng/mL); Benzodiazepine Urine VISTA NEGATIVE (< 200 ng/mL); Cocaine Urine VISTA NEGATIVE (< 300 ng/mL); Ecstacy Urine VISTA NEGATIVE (< 500 ng/mL); Methadone Urine VISTA NEGATIVE (< 300 ng/mL); PCP Urine VISTA NEGATIVE (< 25 ng/mL); THC Urine VISTA NEGATIVE (< 50 ng/mL); Vista UDS pH Range 5
[2021-08-26 18:15] LABS: Color, Urine Yellow (Yellow); Glucose, Dipstick Normal (Normal); Ketone-Dipstick Negative (Negative); Leukocyte Esterase-Dipstick 25 /ul (Negative); Mucous, Urine 0 SEEN /hpf (<or=2+); Nitrite-Dipstick Negative (Negative); Occult Blood-Urine 10 /ul (Negative); Protein-Dipstick Negative (Negative); Urine Bilirubin Dipstick Negative (Negative); Urine Clarity Sl. Cloudy (Clear); Urine Urobilinogen Normal (Normal)
[2021-08-26 18:16] LABS: Bacteria 1+ /hpf (None Seen); Red Blood Cells-Urine 0-5 SEEN /hpf (0-5); Squamous Epithelial Cells - UA 0-5 SEEN /hpf (5-10); White Blood Cells 0-5 SEEN /hpf (0-5)
--- NOTE | 2021-08-26 18:41 | CM.ED ---
REESE Note REESE faxed drug screen to [facility]. REESE called Sally at [facility] and advised that this [employer] had faxed drug screen to [facility] fax number. Plan: Inpatient psych arranged by Stefanie JAVED
--- NOTE | 2021-08-26 21:29 | CM.ED ---
SW Note REESE spoke to Yazan Perez RN. He was going to speak to patient regarding his comfort level with being placed with a female roommate at [facility] as no private beds available. REESE spoke to [place], [place], who said that Yazan spoke to patient and [facility] has been updated. REESE called Sally at [facility]. Sally stated that patient has been accepted at [facility]. Accepting MD is Shanita. Patient will go to the [facility] Unit. RN to RN [phone] Option 1. REESE updated patient. Patient inquired as to when they will leave [facility]. REESE explained that the hope is to get patient to [facility] tonight but we need to complete some paperwork (pink slip) prior to ambulance being scheduled and patient transported. SW remains available. Plan: OHP at discharge Yessica JAVED
--- NOTE | 2021-08-26 22:09 | ED.RN ---
report called to sarah sterling at [facility] unit [phone] byolivia Wilkinson Rn.
[2021-08-26] MEDS: LORazepam 1 MG Tablet PO (23:03)
[2021-08-27 00:04] VITALS: RESP 17
[2021-08-27 00:22] VITALS: TEMP 36.5; O2SAT 98
== END 2021-08-27 01:58 ==
PROVIDERS: Emergency Provider Emergency Medicine; PCP Family Medicine Geriatric Medicine
DX: F31.9 Bipolar disorder, unspecified (principal); R45.851 Suicidal ideations; M19.90 Unspecified osteoarthritis, unspecified site; E11.9 Type 2 diabetes mellitus without complications; K21.9 Gastro-esophageal reflux disease without esophagitis; I10 Essential (primary) hypertension; E78.5 Hyperlipidemia, unspecified; F60.1 Schizoid personality disorder; Z87.891 Personal history of nicotine dependence; Z79.84 Long term (current) use of oral hypoglycemic drugs; Z79.899 Other long term (current) drug therapy
CPT/HCPCS: 80048; 80307; 81001; 82077; 84703; 85025; 87426; 99285

== ENCOUNTER 2021-09-18 15:05 | Emergency (ER) | payer MEDICARE, MEDICAID, SELFPAY ==
[2021-09-18 15:06] VITALS: BP 164/117; PULSE 102; RESP 15; TEMP 35.9; O2SAT 98; BMI 34.2
[2021-09-18 15:40] VITALS: BP 160/93
--- NOTE | 2021-09-18 15:55 | RAD_ITS ---
STUDY: X-RAY CHEST REASON FOR EXAM: Female, 40 years old. Cough. Sore throat. Myalgia and chills. COVID 19 in October 2020. TECHNIQUE: Single AP portable view of the chest. COMPARISON: 12/11/2018. FINDINGS: Diffuse groundglass infiltrates in the left perihilar lung. The right lung appears clear. There is no demonstrated pleural abnormality. Normal size heart. Normal mediastinum and betito. Normal visualized pulmonary arteries. Normal visualized aortic arch and descending thoracic aorta. Normal visualized thoracic spine. Normal visualized ribs, clavicles, and shoulders. There is no demonstrated abnormality of the visualized soft tissue structures of the upper abdomen. RAD/Chest 1 View (Portable) IMPRESSION: Left upper lobe pneumonia. Electronically Signed: Demarco Medina DO at 16:14 EST Tel [phone], Service support ,
--- NOTE | 2021-09-18 16:29 | EX.ED.VIS.UR ---
HPI HPI - URI History of Present Illness Chief Complaint: Cough Narrative Narrative: 40-year-old female with cough, fever, chills, body aches for the last 3 days. Patient had COVID-19 in October 2020. She states it does kind of feel similar. She did had nausea but that was resolved. She is able to eat and drink normally. She is making normal urine and stool. She has no GI or complaints. ROS ROS ED Constitutional Constitutional ED: Reports chills and fever(s) Eyes Eyes: Denies blurry vision or diplopia ENT ENT ED: Reports rhinorrhea and sore throat Cardiovascular Cardiovascular: Denies chest pain or palpitations Respiratory/Chest Respiratory/Chest: Reports cough; Denies dyspnea Gastrointestinal Gastrointestinal: Reports nausea; Denies abdominal pain Genitourinary Genitourinary ED: Denies dysuria or hematuria Musculoskeletal Musculoskeletal: Reports myalgias; Denies arthralgias, back pain or neck pain Integumentary Denies rash Neurologic Neurologic: Denies headache(s), paresthesias or weakness PFSH PFSH Medical History Arthritis Bipolar disorder Diabetes GERD (gastroesophageal reflux disease) H/O emotional problems High blood pressure High cholesterol HTN (hypertension) Hyperlipidemia Schizoid personality disorder split personality disorder Vision problems Home Medications atorvastatin 40 mg PO DAILY 04/15/21 [History Last Taken Unknown] lamotrigine [Lamictal] 150 mg PO BID 04/15/21 [History Last Taken Unknown] metformin 1,000 mg PO BID 04/15/21 [History Last Taken Unknown] omeprazole 40 mg PO DAILY 06/05/21 [History Last Taken Unknown] potassium chloride 20 meq PO DAILY 06/05/21 [History Last Taken Unknown] sumatriptan succinate [Imitrex] 100 mg PO DAILY PRN PRN 06/05/21 [History Last Taken Unknown] melatonin 5 mg PO DAILY 08/26/21 [History Last Taken Unknown] albuterol sulfate 2 puff INHALATION Q6H PRN 09/18/21 [History Last Taken Unknown] aripiprazole 20 mg PO QHS 09/18/21 [History Last Taken Unknown] azithromycin 250 mg PO DAILY #4 tablet 09/18/21 [Rx Last Taken Unknown] cholecalciferol (vitamin D3) [Vitamin D3] 50 mcg PO DAILY 09/18/21 [History Last Taken Unknown] docusate sodium 100 mg PO BID 09/18/21 [History Last Taken Unknown] loratadine 10 mg PO DAILY 09/18/21 [History Last Taken Unknown] metoprolol tartrate 12.5 mg PO BID 09/18/21 [History Last Taken Unknown] mirtazapine 30 mg PO QHS 09/18/21 [History Last Taken Unknown] ondansetron [Zofran ODT] 4 mg PO Q8H PRN 09/18/21 [History Last Taken Unknown] prazosin 2 mg PO QHS 09/18/21 [History Last Taken Unknown] Allergy/AdvReac Type Severity Reaction Status Date / Time No Known Allergies Allergy Verified 09/18/21 15:09 Family History Other Anxiety Arthritis Cancer Cervical cancer Depression Heart disease High cholesterol Hypertension Mental disorder Psychiatric care Suicide attempt Surgical History History of Hx of tubal ligation No history of previous surgery Social History Smoking Status: Current every day smoker tobacco type: smokeless tobacco alcohol intake: never substance use type: does not use what type of physical activity do you participate in: none EXAM Physical Exam Const Vital Signs: 09/18/21 15:06 09/18/21 15:40 09/18/21 15:49 Temperature 96.6 F L Temperature Source Temporal Pulse Rate 102 H Respiratory Rate 15 Respiratory Effort Normal Non-Labored Respiratory Depth Normal Respiratory Pattern Normal Blood Pressure 164/117 H 160/93 H Blood Pressure Mean 132 115 Pulse Ox 98 Oxygen Delivery Method Room Air Positive well nourished General Appearance ED: NAD; Negative for pallor HEENT normocephalic and atraumatic Eyes PERRL and EOMs intact bilaterally Neck no lymphadenopathy, supple and no meningeal signs Resp normal respiratory effort and clear to auscultation bilaterally Cardio Rate: regular rate Rhythm: regular rhythm Neuro oriented x3, CN's II-XII intact bilaterally and no sensory deficits noted Sensorium / Orientation: alert Motor Exam: strength 5/5 throughout Psych mental status grossly normal Skin General Skin Exam: Negative for jaundice or pallor MDM MDM MDM Narrative Medical decision making narrative: I obtained a rapid COVID swab which was negative. Patient's chest x-ray on my interpretation shows a left upper lobe pneumonia. I will start her on azithromycin and give her a prescription for this medication at home. He is given return precautions. Impression: 1. Left upper lobe pneumonia Radiography Diagnostic Testing: Clinical Impression(s) from Imaging Studies Chest X-Ray 09/18/21 15:55 IMPRESSION: Left upper lobe pneumonia. Electronically Signed: Demarco MedinaDO at 16:14 EST Tel [phone], Service support , Discharge Plan Triage Chief Complaint: Cough ED Provider: Ion Crouch Dx/Rx/DC Orders Instructions: ED Pneumonia (Adult) Prescriptions: New azithromycin 250 mg tablet 250 mg PO DAILY Qty: 4 RF: 0 No Action atorvastatin 40 mg tablet 40 mg PO DAILY RF: 0 metformin 500 mg tablet 1,000 mg PO BID RF: 0 lamotrigine [Lamictal] 200 mg tablet 150 mg PO BID RF: 0 sumatriptan succinate [Imitrex] 100 mg Tablet 100 mg PO DAILY PRN PRN (Reason: pain) RF: 0 omeprazole 40 mg Capsule,Delayed Release(Dr/Ec) 40 mg PO DAILY RF: 0 potassium chloride 20 mEq tablet,ER particles/crystals 20 meq PO DAILY RF: 0 melatonin 5 mg Tablet 5 mg PO DAILY RF: 0 mirtazapine 30 mg tablet 30 mg PO QHS RF: 0 docusate sodium 100 mg Capsule 100 mg PO BID RF: 0 albuterol sulfate 90 mcg/actuation Hfa Aerosol Inhaler 2 puff INHALATION Q6H PRN (Reason: Shortness Of Breath Or Wheezing) RF: 0 ondansetron [Zofran ODT] 4 mg Tablet,Disintegrating 4 mg PO Q8H PRN (Reason: Nausea) RF: 0 loratadine 10 mg Tablet 10 mg PO DAILY RF: 0 prazosin 2 mg capsule 2 mg PO QHS RF: 0 aripiprazole 20 mg tablet 20 mg PO QHS RF: 0 metoprolol tartrate 25 mg tablet 12.5 mg PO BID RF: 0 cholecalciferol (vitamin D3) [Vitamin D3] 50 mcg (2,000 unit) Capsule 50 mcg PO DAILY RF: 0 Primary Care Provider: Julian Mendoza Chi Referrals: Julian Mendoza Chi, MD [Primary Care Provider] - Disposition Disposition: Home, Self Care
[2021-09-18] MEDS: Azithromycin 250 MG Tablet 500 MG PO (16:32)
== END 2021-09-18 16:35 | disposition home or self-care (01) ==
PROVIDERS: Emergency Provider Student in an Organized Health Care Education/Training Program; PCP Family Medicine Geriatric Medicine; Visit Provider Student in an Organized Health Care Education/Training Program
DX: J18.9 Pneumonia, unspecified organism (principal); E11.9 Type 2 diabetes mellitus without complications; E78.00 Pure hypercholesterolemia, unspecified; I10 Essential (primary) hypertension; F17.290 Nicotine dependence, other tobacco product, uncomplicated; K21.9 Gastro-esophageal reflux disease without esophagitis; Z86.16 Personal history of COVID-19; Z79.899 Other long term (current) drug therapy; Z79.84 Long term (current) use of oral hypoglycemic drugs
CPT/HCPCS: 71045; 87426; 99283

== ENCOUNTER 2021-10-20 15:07 | Outpatient (CLI) | payer MEDICARE, MEDICAID, SELFPAY ==
[2021-10-20 16:39] LABS: Absolute Lymphocyte Count 2.98 X10^3/uL (0.83-4.51); Absolute Neutrophil Count 5.9 X10^3/uL (2.0-7.7); Basophil# 0.07 X10^3/uL; Basophil% 0.7 % (0-1); Eosinophil# 0.53 X10^3/uL; Eosinophils% 5.2 % (0-5); Hematocrit 33.3 % (37-47); Hemoglobin 10.2 g/dL (12.0-15.0); Lymphocyte # 2.98 X10^3/ul (0.83-4.51); Lymphocyte % 29.1 % (19-41); Mean Corp Hgb Conc 30.6 g/dL (32-36); Mean Corpuscular Hgb 24.1 pg (27.0-32.0); Mean Corpuscular Volume 78.7 fL (81-99); Mean Platelet Vol. 11.4 fl (6.2-12.0); Monocyte# 0.72 X10^3/uL; NRBC Flagged by Analyzer 0 % (0-5); Neutrophil # 5.86 X10^3/uL (2.7-7.7); Neutrophil % 57.3 % (47-70); Platelet Count 382 K/mm3 (150-450); RBC Distribution Width CV 15.9 % (11.6-14.6); RBC Distribution Width SD 45.2 fl (35.1-43.9); Red Blood Count 4.23 M/mm3 (4.2-5.4); White Blood Count 10.2 K/mm3 (4.4-11.0)
[2021-10-20 17:06] LABS: ALB/GLOB Ratio 1.1 RATIO (0.9-2.4); AST(SGOT) 23 U/L (15-37); Alanine Aminotransfer ALT/SGPT 32 U/L (13-56); Albumin, Serum 3.9 g/dL (3.2-5.0); Alkaline Phosphatase 90 U/L (45-117); Anion Gap 5 (5-15); BUN 10 mg/dL (7-18); BUN/Creat Ratio 13.9 RATIO (10-20); Calcium,Total 8.7 mg/dL (8.5-10.1); Chloride 108 mmol/L (98-107); Creatinine, Serum 0.72 mg/dL (0.55-1.02); EST Glomerular Filtration Rate 94 mL/min (>60); Est Glom Filt Rate - Afr Amer 113 mL/min (>60); Globulin 3.6 g/dL (2.2-4.2); Glucose 95 mg/dL (74-106); Potassium 3.7 mmol/L (3.5-5.1); Protein, Total 7.5 g/dL (6.4-8.2); Sodium Level 139 mmol/L (136-145)
== END 2021-10-20 23:59 | disposition home or self-care (01) ==
LOC: POLAB3 15:09
PROVIDERS: PCP Family Medicine Geriatric Medicine; Visit Provider Family Medicine Geriatric Medicine
DX: R53.83 Other fatigue (principal)
CPT/HCPCS: 36415; 80053; 84443; 85025

== ENCOUNTER 2021-11-10 12:26 | Emergency (ER) | payer MEDICARE, MEDICAID, SELFPAY ==
[2021-11-10] VITALS (8 sets, daily range): BP systolic 156–184; BP diastolic 82–109; PULSE 76–90; RESP 16–18; TEMP 36.3–36.5; O2SAT 95–99; BMI 32.8
--- NOTE | 2021-11-10 12:49 | CM.ED ---
SW Note Sully from Crisis called. She reports that patient's sister is bringing patient to the ED. Sully said that patient reports no current SI but has a history of hanging and cutting herself. Patient was discharged from [facility] on 09/01/2021. Sully said that patient has not been taking her medical or high blood pressure medication as well as her psych medications. Sully said that patient could benefit from inpatient hospitalization. Sully will fax her assessment to the ED. Sully advised her assessment was NOT in person. Yessica JAVED
--- NOTE | 2021-11-10 13:08 | EDS_ITS ---
HPI HPI - Psych History of Present Illness Chief Complaint: Suicidal Informant: patient Onset/Context/Timing Onset: Days Context: Gradual Onset Associated Symptoms Associated Symptoms - Psych: Positive for Depressed, Change in Eating and Change in sleeping Narrative Narrative: Patient presents via recommendation from the counseling center for depression and suicidal ideation. Patient states for the last 10 days or so she just feels like she does not care anymore does not care if she lives or dies. She is been isolating herself in her room. She states she has only been eating once a day or so. She reports multiple suicide attempts in the past. She states that this time that she will try any means necessary. She denies attempt at suicide with this exacerbation. [facility] Medical History Arthritis Bipolar disorder Diabetes GERD (gastroesophageal reflux disease) H/O emotional problems High blood pressure High cholesterol HTN (hypertension) Hyperlipidemia Schizoid personality disorder split personality disorder Vision problems Home Medications atorvastatin 40 mg PO DAILY 04/15/21 [History Last Taken Unknown] lamotrigine [Lamictal] 150 mg PO BID 04/15/21 [History Last Taken Unknown] metformin 1,000 mg PO BID 04/15/21 [History Last Taken Unknown] omeprazole 40 mg PO DAILY 06/05/21 [History Last Taken Unknown] potassium chloride 20 meq PO DAILY 06/05/21 [History Last Taken Unknown] sumatriptan succinate [Imitrex] 100 mg PO DAILY PRN PRN 06/05/21 [History Last Taken Unknown] melatonin 5 mg PO DAILY 08/26/21 [History Last Taken Unknown] albuterol sulfate 2 puff INHALATION Q6H PRN 09/18/21 [History Last Taken Unknown] aripiprazole 20 mg PO QHS 09/18/21 [History Last Taken Unknown] azithromycin 250 mg PO DAILY #4 tablet 09/18/21 [Rx Last Taken Unknown] cholecalciferol (vitamin D3) [Vitamin D3] 50 mcg PO DAILY 09/18/21 [History Last Taken Unknown] docusate sodium 100 mg PO BID 09/18/21 [History Last Taken Unknown] loratadine 10 mg PO DAILY 09/18/21 [History Last Taken Unknown] metoprolol tartrate 12.5 mg PO BID 09/18/21 [History Last Taken Unknown] mirtazapine 30 mg PO QHS 09/18/21 [History Last Taken Unknown] ondansetron [Zofran ODT] 4 mg PO Q8H PRN 09/18/21 [History Last Taken Unknown] prazosin 2 mg PO QHS 09/18/21 [History Last Taken Unknown] Allergy/AdvReac Type Severity Reaction Status Date / Time No Known Allergies Allergy Verified 09/18/21 15:09 Family History Other Anxiety Arthritis Cancer Cervical cancer Depression Heart disease High cholesterol Hypertension Mental disorder Psychiatric care Suicide attempt Surgical History History of Hx of tubal ligation No history of previous surgery Social History Smoking Status: Former smoker alcohol intake: never substance use type: does not use what type of physical activity do you participate in: none ROS ROS ED Constitutional Constitutional ED: Denies fever(s) or subjective Eyes Eyes: Denies blurry vision ENT ENT ED: Reports other Details: Dental pain from recent extraction Cardiovascular Cardiovascular: Denies chest pain or palpitations Respiratory/Chest Respiratory/Chest: Denies cough or dyspnea Gastrointestinal Gastrointestinal: Denies abdominal pain or vomiting Musculoskeletal Musculoskeletal: Denies back pain Integumentary Denies abscess or rash Neurologic Neurologic: Denies headache(s) or paresthesias Psychiatric Psychiatric: Reports depression and suicidal thoughts Allergic/Immunologic Allergic/Immunologic ED: Denies urticaria EXAM Physical Exam Const Vital Signs: 11/10/21 12:28 11/10/21 14:00 11/10/21 15:00 Temperature 97.3 F L Temperature Source Oral Pulse Rate 90 Respiratory Rate 17 16 16 Blood Pressure 184/109 H Blood Pressure Mean 134 Pulse Ox 97 Oxygen Delivery Method Room Air Positive well nourished and well developed General Appearance ED: well developed HEENT HEENT Narrative: Recent dental extraction across the maxillary surface. Kyle ropriate post extraction mild edema. No obvious infection. Eyes PERRL and EOMs intact bilaterally Neck supple Resp normal respiratory effort and clear to auscultation bilaterally Cardio Rate: regular rate Rhythm: regular rhythm Extremity normal to inspection Neuro oriented x3 Sensorium / Orientation: alert Psych Appearance: grossly normal and appropriate Attitude: calm Activity / Motor Behavior: appropriate eye contact Speech: normal speech Mood & Affect: depressed and sad Thought Content: suicidality Skin Lesions: no lesions Rashes: no rashes MDM MDM MDM Narrative Medical decision making narrative: Lab work for medical clearance ordered. Lab Data Attestation: I reviewed the patient's lab results. Labs: Laboratory Results - last 24 hr 11/10/21 11/10/21 11/10/21 13:16 13:20 13:20 WBC RBC Hgb Hct MCV MCH MCHC RDW Std Deviation RDW Coeff of Elliot Plt Count MPV Immature Gran % (Auto) Neut % (Auto) Lymph % (Auto) [place] % (Auto) Eos % (Auto) Baso % (Auto) Absolute Neuts (auto) Absolute Lymphs (auto) Nucleated RBC % Sodium 140 Potassium 4.1 Chloride 109 H Carbon Dioxide 26.0 Anion Gap 5 BUN 5 L Creatinine 0.78 Estim Creat Clear Calc 83.68 Est GFR (MDRD) Af Amer 103 Est GFR (MDRD) Non-Af 85 BUN/Creatinine Ratio 6.4 L Glucose 115 H Calcium 9.4 Serum , Qual Urine Opiates Screen NEGATIVE Urine Methadone Screen NEGATIVE Ur Barbiturates Screen NEGATIVE Ur Phencyclidine Scrn NEGATIVE Ur Amphetamines Screen NEGATIVE MDMA (Ecstasy) Screen NEGATIVE U Benzodiazepines Scrn NEGATIVE Urine Cocaine Screen NEGATIVE U Cannabinoids Screen NEGATIVE Ur Drug Screen Comment Ethyl Alcohol < 3.0 11/10/21 11/10/21 13:20 13:30 WBC 8.3 RBC 4.36 Hgb 11.3 L Hct 35.6 L MCV 81.7 MCH 25.9 L MCHC 31.7 L RDW Std Deviation 50.2 H RDW Coeff of Elliot 16.8 H Plt Count 361 MPV 10.1 Immature Gran % (Auto) 0.500 Neut % (Auto) 65.1 Lymph % (Auto) 25.5 [place] % (Auto) 5.3 Eos % (Auto) 2.9 Baso % (Auto) 0.7 Absolute Neuts (auto) 5.4 Absolute Lymphs (auto) 2.11 Nucleated RBC % 0 Sodium Potassium Chloride Carbon Dioxide Anion Gap BUN Creatinine Estim Creat Clear Calc Est GFR (MDRD) Af Amer Est GFR (MDRD) Non-Af BUN/Creatinine Ratio Glucose Calcium Serum , Qual NEGATIVE Urine Opiates Screen Urine Methadone Screen Ur Barbiturates Screen Ur Phencyclidine Scrn Ur Amphetamines Screen MDMA (Ecstasy) Screen U Benzodiazepines Scrn Urine Cocaine Screen U Cannabinoids Screen Ur Drug Screen Comment Ethyl Alcohol Treatment and Re-Evaluation Narrative: Lab work unremarkable. Rapid Covid test negative. I am told that the counseling center is working on placement for this patient. Sitter remains at bedside. Patient be signed out to oncoming physician for further observation while awaiting placement. Discharge Plan Triage Chief Complaint: Suicidal ED Provider: Ely Mann Dx/Rx/DC Orders Clinical Impression: Suicidal ideation Prescriptions: No Action atorvastatin 40 mg tablet 40 mg PO DAILY RF: 0 metformin 500 mg tablet 1,000 mg PO BID RF: 0 lamotrigine [Lamictal] 200 mg tablet 150 mg PO BID RF: 0 sumatriptan succinate [Imitrex] 100 mg Tablet 100 mg PO DAILY PRN PRN (Reason: pain) RF: 0 omeprazole 40 mg Capsule,Delayed Release(Dr/Ec) 40 mg PO DAILY RF: 0 potassium chloride 20 mEq tablet,ER particles/crystals 20 meq PO DAILY RF: 0 melatonin 5 mg Tablet 5 mg PO DAILY RF: 0 mirtazapine 30 mg tablet 30 mg PO QHS RF: 0 docusate sodium 100 mg Capsule 100 mg PO BID RF: 0 albuterol sulfate 90 mcg/actuation Hfa Aerosol Inhaler 2 puff INHALATION Q6H PRN (Reason: Shortness Of Breath Or Wheezing) RF: 0 ondansetron [Zofran ODT] 4 mg Tablet,Disintegrating 4 mg PO Q8H PRN (Reason: Nausea) RF: 0 loratadine 10 mg Tablet 10 mg PO DAILY RF: 0 prazosin 2 mg capsule 2 mg PO QHS RF: 0 aripiprazole 20 mg tablet 20 mg PO QHS RF: 0 metoprolol tartrate 25 mg tablet 12.5 mg PO BID RF: 0 cholecalciferol (vitamin D3) [Vitamin D3] 50 mcg (2,000 unit) Capsule 50 mcg PO DAILY RF: 0 azithromycin 250 mg tablet 250 mg PO DAILY Qty: 4 RF: 0 Primary Care Provider: Julian Mendoza Chi Referrals: Julian Mendoza Chi, MD [Primary Care Provider] - Disposition Disposition: Psychiatric Hospital or Unit
--- NOTE | 2021-11-10 13:08 | CM.ED ---
REESE called Sully at [facility] to clarify as to patient's report this morning to her regarding SI. Sully said that patient was vague in regards to the SI questions and would often state I don't know. When asked about a SI plan patient said not really. Sully said that patient is casarez in her responses and is all over the place. REESE updated instructor physicalAMANDA JAVED
[2021-11-10 13:44] LABS: Anion Gap 5 (5-15); BUN 5 mg/dL (7-18); BUN/Creat Ratio 6.4 RATIO (10-20); Calcium,Total 9.4 mg/dL (8.5-10.1); Chloride 109 mmol/L (98-107); Creatinine, Serum 0.78 mg/dL (0.55-1.02); EST Glomerular Filtration Rate 85 mL/min (>60); Est Glom Filt Rate - Afr Amer 103 mL/min (>60); Estimated Creatinine Clearance 83.68 ml/min; Glucose 115 mg/dL (74-106); Potassium 4.1 mmol/L (3.5-5.1); Sodium Level 140 mmol/L (136-145)
[2021-11-10 13:44] LABS: Absolute Lymphocyte Count 2.11 X10^3/uL (0.83-4.51); Absolute Neutrophil Count 5.4 X10^3/uL (2.0-7.7); Basophil# 0.06 X10^3/uL; Basophil% 0.7 % (0-1); Eosinophil# 0.24 X10^3/uL; Eosinophils% 2.9 % (0-5); Hematocrit 35.6 % (37-47); Hemoglobin 11.3 g/dL (12.0-15.0); Lymphocyte # 2.11 X10^3/ul (0.83-4.51); Lymphocyte % 25.5 % (19-41); Mean Corp Hgb Conc 31.7 g/dL (32-36); Mean Corpuscular Hgb 25.9 pg (27.0-32.0); Mean Corpuscular Volume 81.7 fL (81-99); Mean Platelet Vol. 10.1 fl (6.2-12.0); Monocyte# 0.44 X10^3/uL; Monocyte% 5.3 % (0-10); NRBC Flagged by Analyzer 0 % (0-5); Neutrophil # 5.38 X10^3/uL (2.7-7.7); Neutrophil % 65.1 % (47-70); Platelet Count 361 K/mm3 (150-450); RBC Distribution Width CV 16.8 % (11.6-14.6); RBC Distribution Width SD 50.2 fl (35.1-43.9); Red Blood Count 4.36 M/mm3 (4.2-5.4); White Blood Count 8.3 K/mm3 (4.4-11.0)
[2021-11-10 13:44] LABS: Amphetamine Urine VISTA NEGATIVE (<1000 ng/mL); Barbiturate Urine VISTA NEGATIVE (< 200 ng/mL); Benzodiazepine Urine VISTA NEGATIVE (< 200 ng/mL); Cocaine Urine VISTA NEGATIVE (< 300 ng/mL); Ecstacy Urine VISTA NEGATIVE (< 500 ng/mL); Methadone Urine VISTA NEGATIVE (< 300 ng/mL); PCP Urine VISTA NEGATIVE (< 25 ng/mL); THC Urine VISTA NEGATIVE (< 50 ng/mL); Vista UDS pH Range 7
[2021-11-10 13:50] LABS: Internal QC Validated? YES +Cl - CLEAR BKGD; Pregnancy, Serum, hCG Quali. NEGATIVE Negative
[2021-11-10 13:53] LABS: Alcohol, Blood (Medical)-Serum < 3.0 mg/dL
[2021-11-10] MEDS: Acetaminophen 500 MG Tablet 1000 MG PO (17:01)
[2021-11-10] MEDS: AMOXICILLIN 500 MG CAPSULE PO (17:02)
[2021-11-10] MEDS: Metoprolol Tartrate 25 MG Tablet 12.5 MG PO (17:32)
--- NOTE | 2021-11-10 18:00 | CM.ED ---
REESE received call back from Sully at [facility]. She had received medical information from this automobile service writer. She said that she referred patient to [facility]. REESE updated patient that patient has been referred to [facility]. SW will update patient. REESE received call from [facility]. REESE spoke to Mari who said that [facility] is not accepting referrals tonight. Mari said that patient has been accepted at [facility]. Accepting MD is Dr. Nascimento. RN to RN [phone]. Mari inquired about what sex roommate patient wanted. REESE will ask patient. Mari stated that she needs pink slip faxed to [facility]. REESE spoke to patient. Patient was advised she was accepted at [facility]. Patient said that she has no preference regarding roommate. SW faxed [place] to [facility]. REESE called [facility] and advised patient reports no preference regarding roommate. REESE updated patient's RNEliezer Alvarez to call for transport. REESE called Laney at [facility] and Laney was updated that patient was accepted at [facility] as well as accepting information. Plan: [facility] Yessica JAVED
--- NOTE | 2021-11-10 18:03 | NURSING ---
CALLED [facility], ETA IS 2 HRS
--- NOTE | 2021-11-10 18:10 | NURSING ---
Report called to Yanely at [facility], reported ETA of transport approx 1999, with approx arrival to [place] at 2200.
== END 2021-11-10 19:39 ==
PROVIDERS: Emergency Provider Emergency Medicine; PCP Family Medicine Geriatric Medicine; Visit Provider Emergency Medicine
DX: R45.851 Suicidal ideations (principal); Z87.891 Personal history of nicotine dependence
CPT/HCPCS: 80048; 80307; 82077; 84703; 85025; 87426; 99282

== ENCOUNTER 2021-12-10 12:57 | Outpatient (CLI) | payer MEDICARE, MEDICAID, SELFPAY ==
[2021-12-10 14:52] LABS: Absolute Lymphocyte Count 2.59 X10^3/uL (0.83-4.51); Basophil# 0.05 X10^3/uL; Basophil% 0.6 % (0-1); Eosinophil# 0.39 X10^3/uL; Eosinophils% 4.4 % (0-5); Hematocrit 34.8 % (37-47); Hemoglobin 11.1 g/dL (12.0-15.0); Lymphocyte # 2.59 X10^3/ul (0.83-4.51); Lymphocyte % 29.4 % (19-41); Mean Corp Hgb Conc 31.9 g/dL (32-36); Mean Corpuscular Hgb 25.8 pg (27.0-32.0); Mean Corpuscular Volume 80.7 fL (81-99); Mean Platelet Vol. 10.6 fl (6.2-12.0); Monocyte# 0.72 X10^3/uL; Monocyte% 8.2 % (0-10); NRBC Flagged by Analyzer 0 % (0-5); Neutrophil # 5.03 X10^3/uL (2.7-7.7); Neutrophil % 57.2 % (47-70); Platelet Count 399 K/mm3 (150-450); RBC Distribution Width SD 46.6 fl (35.1-43.9); Red Blood Count 4.31 M/mm3 (4.2-5.4); White Blood Count 8.8 K/mm3 (4.4-11.0)
[2021-12-10 15:06] LABS: ALB/GLOB Ratio 1.1 RATIO (0.9-2.4); AST(SGOT) 15 U/L (15-37); Alanine Aminotransfer ALT/SGPT 29 U/L (13-56); Alkaline Phosphatase 91 U/L (45-117); Anion Gap 5 (5-15); BUN 11 mg/dL (7-18); BUN/Creat Ratio 12.6 RATIO (10-20); Calcium,Total 9.4 mg/dL (8.5-10.1); Chloride 107 mmol/L (98-107); Creatinine, Serum 0.87 mg/dL (0.55-1.02); EST Glomerular Filtration Rate 75 mL/min (>60); Est Glom Filt Rate - Afr Amer 91 mL/min (>60); Globulin 3.6 g/dL (2.2-4.2); Glucose 121 mg/dL (74-106); Potassium 3.9 mmol/L (3.5-5.1); Protein, Total 7.6 g/dL (6.4-8.2); Sodium Level 139 mmol/L (136-145); Thyroid Stim Hormone (TSH) 2.09 uIU/mL (0.358-3.74)
== END 2021-12-10 23:59 | disposition home or self-care (01) ==
LOC: POLAB3 12:58
PROVIDERS: PCP Family Medicine Geriatric Medicine; Visit Provider Family Medicine Geriatric Medicine
DX: E11.65 Type 2 diabetes mellitus with hyperglycemia (principal); I10 Essential (primary) hypertension
CPT/HCPCS: 36415; 80053; 84443; 85025